=== PATIENT | female | born 1950 | race Caucasian/White ===

== ENCOUNTER → 2019-04-29 | Outpatient (CLI) | payer MEDICARE, OTHER, SELFPAY | PROVIDERS: Family Provider Family Medicine; PCP Family Medicine; Referring Provider Internal Medicine Rheumatology; Visit Provider Internal Medicine Rheumatology | DX: Z79.899 Other long term (current) drug therapy (principal) | CPT/HCPCS: 36415; 80053; 85025 ==

== ENCOUNTER → 2019-08-06 09:49 | Outpatient (BNVA) | payer MEDICARE, OTHER, SELFPAY | PROVIDERS: Family Provider Family Medicine; PCP Family Medicine; Visit Provider Internal Medicine Rheumatology | DX: D89.89 Other specified disorders involving the immune mechanism, not elsewhere classified (principal); M11.89 Other specified crystal arthropathies, multiple sites; Z79.899 Other long term (current) drug therapy | CPT/HCPCS: 36415; 80076; 82565; 85025; 85651; 86140 ==

== ENCOUNTER → 2019-08-06 10:12 | Outpatient (BNVA) | payer MEDICARE, OTHER, SELFPAY | PROVIDERS: Family Provider Family Medicine; PCP Family Medicine; Visit Provider Internal Medicine Rheumatology | DX: D89.89 Other specified disorders involving the immune mechanism, not elsewhere classified (principal); M11.89 Other specified crystal arthropathies, multiple sites | CPT/HCPCS: 85025 ==

== ENCOUNTER → 2019-09-09 10:29 | Outpatient (BNVA) | payer MEDICARE, OTHER, SELFPAY | PROVIDERS: Family Provider Family Medicine; PCP Family Medicine; Visit Provider Internal Medicine Rheumatology | DX: Z79.899 Other long term (current) drug therapy (principal) | CPT/HCPCS: 36415; 81001; 82570; 84156; 86160; 86235; 86480 ==

== ENCOUNTER 2019-09-11 12:38 | Outpatient (CLI) | payer MEDICARE, OTHER, SELFPAY ==
--- NOTE | 2019-09-11 12:55 | XR_ITS ---
WS: [id number] DEXA (DUAL ENERGY X-RAY ABSORPTIOMETRY) Bone mineral density was performed using a Xtellus machine. HISTORY: POSTMENOPAUSAL, ASYMPTOMATIC MENOPAUSAL STATE COMPARISON: None available. Lumbar spine BMD (L1-L4): 1.171 g/cm2 T score: -0.1 Z score: 0.4 Total hip BMD: Left: 0.834 g/cm2. T score: -1.4 Z score: -0.9 Right: 0.862 g/cm2. T score: -1.2 Z score: -0.7 10 year probability of a major osteoporotic fracture is 5%. Mild LEFT convex curvature lumbar spine. XR/XR DEXA axial skeleton* [id number] IMPRESSION: OSTEOPENIA based upon the WHO classification for females.
== END 2019-09-11 12:39 | disposition home or self-care (01) ==
LOC: RADWPI 12:46
PROVIDERS: Family Provider Family Medicine; PCP Family Medicine; Visit Provider Nurse Practitioner Family
DX: Z78.0 Asymptomatic menopausal state (principal); M85.89 Other specified disorders of bone density and structure, multiple sites
CPT/HCPCS: 77080

== ENCOUNTER → 2019-09-19 11:35 | Outpatient (BNVA) | payer MEDICARE, OTHER, SELFPAY | PROVIDERS: Family Provider Family Medicine; PCP Family Medicine; Visit Provider Nurse Practitioner Family | DX: N39.0 Urinary tract infection, site not specified (principal); N39.41 Urge incontinence | CPT/HCPCS: 81001 ==

== ENCOUNTER → 2019-11-07 10:13 | Outpatient (BNVA) | payer MEDICARE, OTHER, SELFPAY | PROVIDERS: Family Provider Family Medicine; PCP Family Medicine; Visit Provider Urology | DX: N39.0 Urinary tract infection, site not specified (principal); N39.46 Mixed incontinence | CPT/HCPCS: 81001 ==

== ENCOUNTER → 2019-11-12 12:16 | Outpatient (BNVA) | payer MEDICARE, OTHER, SELFPAY | PROVIDERS: Family Provider Family Medicine; PCP Family Medicine; Visit Provider Urology | DX: N39.0 Urinary tract infection, site not specified (principal) | CPT/HCPCS: 80053; 81001 ==

== ENCOUNTER → 2019-11-26 09:55 | Outpatient (BNVA) | payer MEDICARE, OTHER, SELFPAY | PROVIDERS: Family Provider Family Medicine; PCP Family Medicine; Visit Provider Internal Medicine Rheumatology | DX: Z79.899 Other long term (current) drug therapy (principal) | CPT/HCPCS: 36415; 80076; 82565; 85025; 85651; 86140 ==

== ENCOUNTER → 2020-01-08 09:47 | Outpatient (BNVA) | payer MEDICARE, OTHER, SELFPAY | PROVIDERS: Family Provider Family Medicine; PCP Family Medicine; Visit Provider Nurse Practitioner Family | DX: N39.46 Mixed incontinence (principal); N39.0 Urinary tract infection, site not specified | CPT/HCPCS: 81001 ==

== ENCOUNTER → 2020-01-21 11:08 | Outpatient (BNVA) | payer MEDICARE, OTHER, SELFPAY | PROVIDERS: Family Provider Family Medicine; PCP Family Medicine; Visit Provider Internal Medicine Rheumatology | DX: M06.042 Rheumatoid arthritis without rheumatoid factor, left hand (principal); Z79.899 Other long term (current) drug therapy; M06.041 Rheumatoid arthritis without rheumatoid factor, right hand; M19.90 Unspecified osteoarthritis, unspecified site; Z91.81 History of falling; Z87.39 Personal history of other diseases of the musculoskeletal system and connective tissue | CPT/HCPCS: 20600; 99214; J1030 ==

== ENCOUNTER → 2020-02-06 09:07 | Outpatient (BNVA) | payer MEDICARE, OTHER, SELFPAY | PROVIDERS: Family Provider Family Medicine; PCP Family Medicine; Visit Provider Nurse Practitioner Family | DX: N39.46 Mixed incontinence (principal) | CPT/HCPCS: 81001 ==

== ENCOUNTER → 2020-02-27 11:13 | Outpatient (BNVA) | payer MEDICARE, OTHER, SELFPAY | PROVIDERS: Family Provider Family Medicine; PCP Family Medicine; Visit Provider Internal Medicine Rheumatology | DX: Z79.899 Other long term (current) drug therapy (principal) | CPT/HCPCS: 36415; 80076; 82565; 85025; 85651; 86140 ==

== ENCOUNTER 2020-03-12 11:37 | Outpatient (CLI) | payer MEDICARE, OTHER, SELFPAY ==
--- NOTE | 2020-03-12 11:30 | XR_ITS ---
WS: [id number] XR KUB [id number] REASON FOR EXAM: FLANK PAIN FINDINGS: The focused view of the renal area is degraded by motion artifact. Large amount of stool in the colon. Bowel gas pattern otherwise unremarkable. No free air. No calculi are identified overlying either kidney or the course of the ureters. No significant calcif ication is seen within the pelvis. XR/XR KUB [id number] IMPRESSION: Examination limited as above. No urinary tract calculi identified.
== END 2020-03-12 11:38 | disposition home or self-care (01) ==
LOC: RAD 11:41
PROVIDERS: PCP Family Medicine; Visit Provider Nurse Practitioner Family
DX: R10.9 Unspecified abdominal pain (principal)
CPT/HCPCS: 74018; 81003

== ENCOUNTER → 2020-04-15 15:13 | Outpatient (BNVA) | payer MEDICARE, OTHER, SELFPAY | PROVIDERS: PCP Family Medicine; Visit Provider Internal Medicine Rheumatology | DX: M06.041 Rheumatoid arthritis without rheumatoid factor, right hand (principal); M06.042 Rheumatoid arthritis without rheumatoid factor, left hand; M15.9 Polyosteoarthritis, unspecified; G20 Parkinson's disease; R29.6 Repeated falls; Z79.899 Other long term (current) drug therapy | CPT/HCPCS: 99214 ==

== ENCOUNTER 2020-05-19 10:06 | Outpatient (CLI) | payer MEDICARE, OTHER, SELFPAY ==
--- NOTE | 2020-05-19 10:16 | CT_ITS ---
WS: [id number] CT ABDOMEN AND PELVIS WITH CONTRAST HISTORY: ABDOMINAL PAIN, DIARRHEA, ACID REFLUX DISEASE, Parkinson's disease. TECHNIQUE: Imaging performed of the abdomen and pelvis with IV contrast. Single phase imaging of the abdomen. Coronal and sagittal reformats are submitted. All CT scans at [facility] use at least one of these dose optimization techniques: automated exposure control; mA and/or kV adjustment per patient size (includes targeted exams where dose is matched to clinical indication); or iterativ e reconstruction. IV CONTRAST: Visipaque 320; 95 mL IV. Oral contrast: Yes. DLP: 1103.77 mGycm COMPARISON: 11/20/2017 Lower thorax: Stable 4 mm nodule at the LEFT lung base. Heart is normal size. Moderate size hiatal he rnia containing contrast. Liver/biliary system: Moderate diffuse hepatic steatosis. No bile duct dilatation. Gallbladder: Status post cholecystectomy. Pancreas: Atrophy and partial fatty replacement of the pancreas. Spleen: Normal. Adrenal glands: Normal. Right kidney: Normal. Left kidney: Normal. Aorta: Normal. Lymphadenopathy: None. Free fluid: None. GI tract: No GI tract obstruction. There is moderate diffuse fecal retention throughout the colon. Th ere is an area of soft tissue thickening near the rectum of uncertain etiology. No oral contrast is p resent. This could be soft tissue mass or collapsed rectum. The appendix is not identified. Prior carmella endectomy. Abdominal wall: Fat-containing umbilical hernia. Pelvis: Normally distended urinary bladder. No adenopathy or free fluid. Prior hysterectomy. Bones: Increased lumbar lordosis. L4 anterolisthesis by 5 mm. Facet joint arthritis bilaterally. CT/CT abdomen pelvis w con* [id number] IMPRESSION: 1. Hepatic steatosis and prior cholecystectomy. 2. Moderate size hiatal hernia containing oral contrast. Probably due to reflu x disease. 3. Soft tissue thickening at the rectum of uncertain etiology. May be collapse d normal rectum but neoplasm is not excluded. Consider colonoscopy if this has not been performed. 4. Diffuse constipation. No obstruction.
[2020-05-19] MEDS: iohexol 300 mg/mL 50 mL Btl PO (10:56)
[2020-05-19] MEDS: iodixanol 320 mg/mL 100mL Btl IV (12:09)
== END 2020-05-19 10:07 | disposition home or self-care (01) ==
LOC: RADWPI 10:09
PROVIDERS: PCP Electrodiagnostic Medicine; Visit Provider Electrodiagnostic Medicine
DX: R10.9 Unspecified abdominal pain (principal); K21.9 Gastro-esophageal reflux disease without esophagitis; G20 Parkinson's disease; M06.9 Rheumatoid arthritis, unspecified; R19.7 Diarrhea, unspecified; F32.9 Major depressive disorder, single episode, unspecified; F41.9 Anxiety disorder, unspecified; K76.0 Fatty (change of) liver, not elsewhere classified; K44.9 Diaphragmatic hernia without obstruction or gangrene; K59.00 Constipation, unspecified
CPT/HCPCS: 74177; Q9967

== ENCOUNTER → 2020-12-03 08:56 | Outpatient (BNVA) | payer MEDICARE, OTHER, SELFPAY | PROVIDERS: PCP Electrodiagnostic Medicine; Visit Provider Internal Medicine Rheumatology | DX: M15.9 Polyosteoarthritis, unspecified (principal); Z71.89 Other specified counseling; Z79.899 Other long term (current) drug therapy | CPT/HCPCS: 36415; 80076; 82565; 85025; 86140 ==

== ENCOUNTER 2020-12-14 11:30 | Outpatient (CLI) | payer MEDICARE, OTHER, SELFPAY ==
--- NOTE | 2020-12-14 11:41 | MM_ITS ---
WS: [id number] BILATERAL DIGITAL SCREENING MAMMOGRAPHY WITH CAD CLINICAL INFORMATION: SCREENING HISTORY: Screening mammogram. No current complaints. COMPARISON: March 08, 2018 TECHNIQUE: Bilateral CC and MLO views. FINDINGS: Scattered fibroglandular densities bilaterally. A few incidental punctate calcifications. No suspicio us focal mass, asymmetry, calcifications, or architectural distortion. No evidence of malignancy. MM/[place] [id number] IMPRESSION: BI-RADS: 2-Benign FOLLOW UP: 1 Year Follow-up Recommend return to annual screening mammography.
== END 2020-12-14 11:31 | disposition home or self-care (01) ==
LOC: RADSHAW 11:37
PROVIDERS: PCP Electrodiagnostic Medicine; Visit Provider Electrodiagnostic Medicine
DX: Z12.31 Encounter for screening mammogram for malignant neoplasm of breast (principal)
CPT/HCPCS: 77067

== ENCOUNTER → 2020-12-21 15:28 | Outpatient (BNVA) | payer MEDICARE, OTHER, SELFPAY | PROVIDERS: PCP Electrodiagnostic Medicine; Visit Provider Internal Medicine Rheumatology | DX: M06.041 Rheumatoid arthritis without rheumatoid factor, right hand (principal); M06.042 Rheumatoid arthritis without rheumatoid factor, left hand; M15.9 Polyosteoarthritis, unspecified; Z71.89 Other specified counseling; Z79.899 Other long term (current) drug therapy; G20 Parkinson's disease | CPT/HCPCS: 99214 ==

== ENCOUNTER → 2021-03-29 14:31 | Outpatient (BNVA) | payer MEDICARE, OTHER, SELFPAY | PROVIDERS: PCP Electrodiagnostic Medicine; Visit Provider Internal Medicine Rheumatology | DX: Z71.89 Other specified counseling (principal); M06.041 Rheumatoid arthritis without rheumatoid factor, right hand; M06.042 Rheumatoid arthritis without rheumatoid factor, left hand; M19.90 Unspecified osteoarthritis, unspecified site; Z79.899 Other long term (current) drug therapy | CPT/HCPCS: 36415; 80076; 82565; 85025; 86140 ==

== ENCOUNTER 2021-05-31 13:29 | Outpatient (CLI) | payer SELFPAY ==
[2021-05-31 08:56] VITALS: BMI 45.3
[2021-05-31 15:06] VITALS: BP 130/72; PULSE 95; RESP 18; TEMP 36.6; O2SAT 93
== END 2021-05-31 13:30 | disposition home or self-care (01) ==
LOC: OPS 13:32
PROVIDERS: PCP Electrodiagnostic Medicine; Visit Provider Physician Assistant
DX: U07.1 COVID-19 (principal)
CPT/HCPCS: 96365

== ENCOUNTER → 2021-09-28 14:51 | Outpatient (BNVA) | payer MEDICARE, OTHER, SELFPAY | PROVIDERS: PCP Electrodiagnostic Medicine; Visit Provider Internal Medicine Rheumatology | DX: M06.041 Rheumatoid arthritis without rheumatoid factor, right hand (principal); M06.042 Rheumatoid arthritis without rheumatoid factor, left hand; M15.9 Polyosteoarthritis, unspecified; Z79.899 Other long term (current) drug therapy; G20 Parkinson's disease; R29.6 Repeated falls; Z71.89 Other specified counseling | CPT/HCPCS: 73130; 73630; 80076; 82565; 85025; 86140; 99214 ==

== ENCOUNTER 2021-12-30 08:48 | Outpatient (CLI) | payer MEDICARE, OTHER, SELFPAY ==
--- NOTE | 2021-12-30 08:56 | MM_ITS ---
WS: [id number] Bilateral screening 3D tomosynthesis digital mammogram, 12/30/2021 Clinical Data: SCREENING Comparison: 12/13/2020, 03/08/2018, 02/24/2015, 02/05/2014, 04/16/2012, 04/13/2011, 02/22/2010, 02/12/2029, 10/16/2007. Findings: The breast parenchymal pattern shows lateral glandular tissue. No spiculated masses or clustered calc ifications are seen. There are no secondary signs of carcinoma. MM/[place] [id number] Impression: 1. Negative bilateral mammogram unchanged. 2. Recommend annual screening mammograms. BIRADS: 1-Negative FOLLOW UP: 1 Year Follow-up The CAD program checker was used.
== END 2021-12-30 08:49 | disposition home or self-care (01) ==
PROVIDERS: PCP Electrodiagnostic Medicine; Visit Provider Electrodiagnostic Medicine
DX: Z12.31 Encounter for screening mammogram for malignant neoplasm of breast (principal)
CPT/HCPCS: 77063; 77067

== ENCOUNTER 2022-03-07 13:08 | Outpatient (CLI) | payer MEDICARE, OTHER, SELFPAY ==
--- NOTE | 2022-03-07 | USCV_ITS ---
Rakel Anderson Age: 71 Gender: F : 1950 Exam Date: 03/07/2022 13:43 Ordering Phys: Selvin Dumont MD Technologist: CT Exam Location[place] [facility] [place] Indication: PAIN, RT PROCEDURES: Venous duplex imaging was performed in only the right lower extremity. In addition, the posterior tibial and peroneal trunk were evaluated. Serial compression, augmentation maneuvers, and spectral Doppler flow evaluation were performed. FINDINGS: NORMAL US CONCLUSIONS No evidence of right lower extremity DVT. Charles Fonseca MD (Electronically Signed) Final Date: 07 March 2022 14:36 S
== END 2022-03-07 13:09 | disposition home or self-care (01) ==
PROVIDERS: PCP Electrodiagnostic Medicine; Visit Provider Surgery
DX: G89.18 Other acute postprocedural pain (principal); M79.604 Pain in right leg
CPT/HCPCS: 93971

== ENCOUNTER → 2022-06-15 12:12 | Outpatient (BNVA) | payer MEDICARE, OTHER, SELFPAY | PROVIDERS: PCP Electrodiagnostic Medicine; Visit Provider Internal Medicine Rheumatology | DX: M06.041 Rheumatoid arthritis without rheumatoid factor, right hand (principal); M06.042 Rheumatoid arthritis without rheumatoid factor, left hand; M16.0 Bilateral primary osteoarthritis of hip; Z79.899 Other long term (current) drug therapy; M06.4 Inflammatory polyarthropathy; M17.12 Unilateral primary osteoarthritis, left knee; R29.6 Repeated falls; G20 Parkinson's disease; G57.02 Lesion of sciatic nerve, left lower limb; Z79.52 Long term (current) use of systemic steroids; Z96.652 Presence of left artificial knee joint; Z98.1 Arthrodesis status | CPT/HCPCS: 36415; 72170; 80076; 82565; 85025; 85651; 86140; 99214 ==

== ENCOUNTER → 2022-09-14 12:36 | Outpatient (BNVA) | payer MEDICARE, OTHER, SELFPAY | PROVIDERS: PCP Electrodiagnostic Medicine; Visit Provider Internal Medicine Rheumatology | DX: M06.041 Rheumatoid arthritis without rheumatoid factor, right hand (principal); M06.042 Rheumatoid arthritis without rheumatoid factor, left hand; Z79.899 Other long term (current) drug therapy; Z71.89 Other specified counseling; M15.9 Polyosteoarthritis, unspecified | CPT/HCPCS: 99214 ==

== ENCOUNTER 2022-09-28 07:52 | Outpatient (CLI) | payer MEDICARE, OTHER, SELFPAY ==
[2022-09-28 08:47] VITALS: BMI 43.9
--- NOTE | 2022-09-28 08:53 | ECG_ITS ---
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 Interpretive Statements NAME OF STUDY: LEXISCAN SESTAMIBI STRESS TEST INDICATION: Chest Pain PROCEDURE: At the baseline, the EKG revealed normal sinus rhythm with a poor R wave progression.. The baseline heart was 98 bpm with a blood pressue of 181/89 mm of Hg Lexiscan was infused over a period of 20 seconds. A total of 0.4 milligrams of Lexiscan was infused. The stress phase was continued for a total of 5 minutes. Heart rate at the end of the stress phase was 99 bpm with a blood pressure 161/80 mm of Hg. The EKG at the peak infusion revealed no significant changes. Sestamibi was injected 20 seconds after the Lexiscan infusion. Heart rate at the end of the recovery phase was 99 bpm with a blood pressure of 158/78 mm of Hg. CONCLUSION: 1. No significant EKG changes with the LexiScan infusion 2. No LexiScan induced chest pain or cardiac arrhythmia 3. Normal blood pressure and heart rate response 4. Sestamibi/sestamibi perfusion scan pending; see separate report. Electronically Signed On 09-29-2022 8:03:25 CDT by Amish Garza M.D. [id number]
--- NOTE | 2022-09-28 08:53 | NMCV_ITS ---
NM amy perf SPECT r/s* [id number] Rakel Anderson Age: 72 Gender: F : 1950 Exam Date: 09/28/2022 08:53 Ordering Phys: Thanh Washington (ER USE) DO Technologist: TRI Riley Exam Location: [facility] Indications: CHEST PAIN STRESS TEST Please see separate stress test report in [facility] for full findings IMAGE PROTOCOL Rest/Stress 1 Lexiscan Day Radiopharmaceutical Dose (mCi) Administration Site Administered by Rest: Tc-99m 10.7 IV TRI Aviles Sestamibi Stress:Tc-99m 32.9 IV TRI Aviles Sestamibi Rest: 28-Sep-2022 60 Discovery 630 Stress: 28-Sep-2022 30 Discovery 630 0.4mg Lexiscan. Supine position only as patient was unable to lay prone. SPECT RESULTS Technical Quality: Excellent Raw Data Analysis: Normal Image Corrections: No attenuation or motion correction applied Summed Stress Score: 4 Summed Rest Score: 8 Summed Difference Score: 0 PERFUSION FINDINGS Moderate area of minimal to moderate decreases uptake in the mid inferolateral, mid anterolateral and apical lateral regions. No reversibility was noted in these regions. FUNCTIONAL RESULTS (calculated via Gated SPECT) Stress Image LV EF (%): 77 Stress EDV (mL):81 TID: 0.77 Stress ESV (mL):19 FUNCTIONAL FINDINGS: Segmental wall motion analysis revealing no gross wall motion abnormalities IMPRESSIONS 1. Myocardial perfusion imaging revealing moderate area of minimal to moderately decreased persistent tracer uptake in the anterolateral, inferolateral and apical lateral regions, suggesting myocardial scarring versus attrition artifact 2. Normal LV ejection fraction 77%. 3. LV wall motion analysis revealing no gross wall motion abnormalities. 4. Normal LV volume Low probability for coronary ischemia, based on the above findings No similar previous studies are available for comparison Dr Amish Garza MD [facility] (Electronically Signed) Final Date: 28 Sep 2022 12:41 S
[2022-09-28] MEDS: regadenoson 0.4 Mg/5 ml Syringe IVP (10:19)
[2022-09-28 10:23] VITALS: BP 153/88; PULSE 99
== END 2022-09-28 07:53 | disposition home or self-care (01) ==
LOC: CDL 07:55
PROVIDERS: PCP Electrodiagnostic Medicine; Visit Provider Electrodiagnostic Medicine
DX: R07.9 Chest pain, unspecified (principal)
CPT/HCPCS: 36415; 78452; 93017; 96374; A9500; J2785

== ENCOUNTER → 2023-11-13 10:20 | Outpatient (BNVA) | payer MEDICARE, OTHER, SELFPAY | PROVIDERS: PCP Electrodiagnostic Medicine; Visit Provider Internal Medicine Rheumatology | DX: M06.041 Rheumatoid arthritis without rheumatoid factor, right hand (principal); M06.042 Rheumatoid arthritis without rheumatoid factor, left hand; Z79.899 Other long term (current) drug therapy; M17.12 Unilateral primary osteoarthritis, left knee; Z96.612 Presence of left artificial shoulder joint | CPT/HCPCS: 36415; 80076; 82565; 85025; 85651; 86140; 99214 ==

== ENCOUNTER 2024-06-26 18:46 | Emergency (ER) | payer MEDICARE, OTHER, SELFPAY ==
[2024-06-26 18:47] VITALS: BP 152/81; PULSE 91; RESP 18; TEMP 36.8; O2SAT 95; BMI 41.5
[2024-06-26] MEDS: ondansetron 2 mg/ML SDV 2 mL 4 MG IM (19:02)
[2024-06-26] MEDS: ketorolac 60 mg/2 mL INJ IM (19:02)
--- NOTE | 2024-06-26 19:12 | W.ED.FALL ---
HPI - Fall General: Chief Complaint: Fall Stated Complaint: Fall Time Seen by Provider: 06/26/24 18:51 History of Present Illness: Patient brought in by EMS for evaluation for a fall around 1600. Resulted in patient hitting her back and right lumbar area. Patient did not hit her head or lose consciousness. Patient has not been able to tolerate her pain. Before the fall patient does not have back pain. Patient does have Parkinson's and does have tremor and shuffling gait. Related Data Home Medications ?Medication ?Instructions ?Recorded ?Confirmed clonazepam 0.5 mg tablet 0.5 mg PO DAILY 08/13/19 11/13/23 hydrocodone 5 mg-acetaminophen 325 1 tab PO BID PRN 08/13/19 11/13/23 mg tablet omeprazole 40 mg capsule,delayed 40 mg PO DAILY 08/13/19 11/13/23 release rasagiline 1 mg tablet (Azilect) 1 mg PO DAILY 08/13/19 11/13/23 conjugated estrogens 0.625 mg/gram 0.625 mg vaginal DAILY PRN 08/14/19 11/13/23 vaginal cream (Premarin) ropinirole 3 mg tablet (Requip) 3 mg PO BID 08/14/19 11/13/23 amantadine HCl 100 mg capsule 100 mg PO BID 09/28/21 11/13/23 fluoxetine 40 mg capsule 40 mg PO DAILY 09/28/21 11/13/23 venlafaxine 50 mg tablet 50 mg PO DAILY 09/28/21 11/13/23 carbidopa ER 50 mg-levodopa 200 mg 1 tab PO .HS 06/15/22 11/13/23 tablet,extended release gabapentin 600 mg tablet 600 mg PO TID 06/15/22 11/13/23 lactobacillus combination no.9 4 4,000 mmu cells PO DAILY 06/15/22 11/13/23 billion cell capsule (Adult 50 Plus Probiotic) carbidopa 25 mg-levodopa 100 mg 2 tab PO QID 11/13/23 11/13/23 tablet (Sinemet) Previous Rx's ?Medication ?Instructions ?Recorded solifenacin 10 mg tablet (Vesicare) 10 mg PO DAILY #30 tabs 03/30/20 diclofenac sodium 1 % topical gel 4 g topical QID #100 grams 09/14/22 hydroxychloroquine 200 mg tablet See Rx Instructions .Route 11/13/23 .COMPLEX #180 tabs leflunomide 20 mg tablet 20 mg PO DAILY #90 tabs 11/13/23 prednisone 5 mg tablet See Rx Instructions PO .COMPLEX 11/13/23 #90 tabs prednisone 10 mg tablet See Rx Instructions PO .COMPLEX 01/10/24 PRN joint pain #30 tabs Allergies Allergy/AdvReac Type Severity Reaction Status Date / Time methotrexate AdvReac Severe diarrhea Verified 11/13/23 10:50 Sulfa (Sulfonamide AdvReac Mild nausea Verified 11/13/23 10:50 Antibiotics) Review of Systems General: Reports: 10 or more systems reviewed and unremarkable except in HPI and below PFSH ED PFSH: Medical History Piriformis syndrome of left side Osteoarthritis, generalized Seronegative rheumatoid arthritis of both hands Mixed stress and urge urinary incontinence History of calcium pyrophosphate deposition disease (CPPD) Inflammatory arthritis High risk medication use Immunization counseling Osteoarthritis Recurrent UTI Surgical History History of History of hysterectomy H/O arthroscopy of left knee History of esophageal surgery History of cholecystectomy History of tubal ligation Hx of repair of left rotator cuff History of left knee replacement Family History Father , at age 69 Cancer pancreatic cancer Emphysema lung Mother , at age 57 Enlarged heart Other Diabetes Family history of premature coronary artery disease Heart disease Hypertension Systemic lupus erythematosus (SLE) in adult Denies family history of Chronic kidney disease (CKD) Social History Smoking and tobacco/nicotine status: never used tobacco/nicotine Alcohol intake: never Substance/Drug Use: unknown Adopted: No Caregiver/support person: No Lives independently: No Household members: spouse Marital status: Current occupational status: retired Current gender identity: Female Physical Exam Const: COMMON NORMALS: no acute distress, average body habitus, patient oriented x3, no limitations, healthy appearing, alert and well nourished HENMT: COMMON NORMALS: normocephalic, atraumatic, hearing grossly normal bilaterally, external ears normal, Normal external nose present, moist oral mucous membranes and oropharynx normal HEAD & SCALP: normocephalic and atraumatic NOSE: Normal external nose present EXTERNAL EAR: Yes external ears normal Eye: COMMON NORMALS: Equal, round and reactive pupils present, EOMs intact bilaterally, conjunctivae normal and no scleral icterus CONJUNCTIVA: Yes conjunctivae normal PUPIL: Yes Equal, round and reactive pupils present Neck/C-Spine: COMMON NORMALS: full ROM, no lymphadenopathy, supple, no meningeal signs and no JVD Chest: COMMONS NORMALS: normal inspection of the chest and normal palpation of entire chest wall Resp: COMMON NORMALS: normal respiratory effort, No retractions, No use of accessory muscles and clear to auscultation bilaterally AUSCULTATION: clear to auscultation bilaterally Cardio: COMMON NORMALS: no JVD, regular rate, regular rhythm, S1 normal heart sound present, S2 normal heart sound present, No gallops present (Cardio), No clicks present (Cardio), No murmurs present (Cardio) and No rub (Cardio) RATE: regular rate RHYTHM: regular rhythm HEART SOUNDS: S1 normal heart sound present and S2 normal heart sound present GI: COMMON NORMALS: Normal to inspection, nondistended, normoactive bowel sounds present, Soft to palpation, non-tender and No hepatosplenomegaly present PALPATION: Yes Soft to palpation and Yes No hepatosplenomegaly present Back/Pelvis: OTHER: Tenderness to palpation over lumbar spine and right lumbar paraspinal region, no obvious step-off deformity crepitus. Neuro: COMMON NORMALS: patient oriented x3 SENSORIUM/ORIENTATION: Yes alert MENINGEAL SIGNS: Yes no meningeal signs Course Vital Signs: Vital signs: Vital Signs Temperature 98.3 F 06/26/24 18:47 Pulse Rate 96 06/26/24 20:04 Respiratory Rate 18 06/26/24 18:47 Blood Pressure 96/68 06/26/24 20:04 Pulse Oximetry 95 06/26/24 20:04 Oxygen Delivery Me thod Room Air 06/26/24 20:04 MDM - Fall Medical Decision Making X-rays were negative for acute lumbar pathology, patient was given 60 mg Toradol, 4 mg of Zofran followed by 5 mg of hydrocodone. Patient said the pain is almost gone. Patient be discharged home. Medical Records I reviewed the patient's medical records. Lab Data I reviewed the patient's lab results. Radiology Impressions Lumbar Spine X-Ray 06/26/24 19:18 IMPRESSION: Negative for acute lumbar spine pathology. All radiology interpretation(s) finalized by discharge Discharge Plan Discharge Patient Disposition: Home Clinical Impression: Fall, Low back pain Condition: Stable Prescriptions: No Action rasagiline [Azilect] 1 mg tablet 1 mg PO DAILY omeprazole 40 mg capsule,delayed release(DR/EC) 40 mg PO DAILY hydrocodone-acetaminophen 5-325 mg tablet 1 tab PO BID PRN clonazepam 0.5 mg tablet 0.5 mg PO DAILY Premarin 0.625 mg/gram cream 0.625 mg VAGINAL DAILY PRN ropinirole [Requip] 3 mg tablet 3 mg PO BID carbidopa-levodopa [Sinemet] 25-100 mg tablet 2 tab PO QID Patient Comments: dose change per pt fluoxetine 40 mg capsule 40 mg PO DAILY amantadine HCl 100 mg capsule 100 mg PO BID venlafaxine 50 mg tablet 50 mg PO DAILY gabapentin 600 mg tablet 600 mg PO TID carbidopa-levodopa 50-200 mg tablet extended release 1 tab PO .HS Adult 50 Plus Probiotic 4 billion cell capsule 4,000 mmu cells PO DAILY Rx Instructions: administer with a meal diclofenac sodium 1 % gel 4 g topical QID Qty: 100 2RF Rx Instructions: apply to affected area as needed hydroxychloroquine 200 mg tablet See Rx Instructions .ROUTE .COMPLEX Qty: 180 1RF Dose Instruction: Take 1 tablet by mouth twice daily Rx Instructions: Take 1 tablet by mouth twice daily leflunomide 20 mg tablet 20 mg PO DAILY Qty: 90 1RF prednisone 5 mg tablet See Rx Instructions PO .COMPLEX Qty: 90 1RF Rx Instructions: 5mg daily orally; solifenacin [Vesicare] 10 mg tablet 10 mg PO DAILY Qty: 30 3RF prednisone 10 mg tablet See Rx Instructions PO .COMPLEX PRN (Reason: joint pain) Qty: 30 1RF Rx Instructions: take 1 tab daily for 5 days prn joint pain flare PO PRN; Discharge Orders: Discharge ED (Routine); Ordered 06/26/24 Ordered By: Froylan Dutta Referrals: Thanh Washington DO [Primary Care Provider] - 1 week Patient Instructions: Acute Low Back Pain (ED), Fall Prevention (ED) Activity Restrictions/Additional Instructions: The x-ray performed in the ER did not show any acute fracture of your low back. Please continue take the hydrocodone you have at home as previously directed. Please follow-up with your failure proximal physician within the next 7 days for further evaluation treatment as needed. Activity restrictions/additional instructions: [facility]. Please realize that you were seen in the emergency department and that we are providing you with an emergency medical screening exam and this may not be a complete and all exclusive of all testing and/or medical workup we may need to determine your element or severity of your illness. It is very important that you follow-up as instructed with your primary care provider or specialist for the additional evaluation and to discuss your medical treatment plan. You may return to the emergency department should you have concerns or if your condition changes or worsens in any way. 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
--- NOTE | 2024-06-26 19:18 | XRR_ITS ---
PROCEDURE INFORMATION: Exam: XR Lumbosacral Spine Exam date and time: 06/26/2024 7:51 PM Age: 74 years old Clinical indication: Injury or trauma; Fall; Other: Pain lower back; Prior surgery; Surgery date: 6+ months; Surgery type: Lumbar fusiion; Additional info: Fall lbp TECHNIQUE: Imaging protocol: Radiologic exam of the lumbosacral spine. Views: 2 or 3 views. COMPARISON: CR XR pelvis 1-2V* [id number] 06/15/2022 12:17 PM FINDINGS: Bones/joints: Multilevel posterior fusion of the lumbosacral spine without evidence of complication. No acute lumbar spine fractures are identified. Negative for traumatic malalignment. There is most likely degenerative grade 1 spondylolisthesis in the mid lumbar spine. Laminectomy surgical changes.The lumbar spine demonstrates marked discogenic and apophyseal joint degenerative changes at multiple levels. Soft tissues: Unremarkable. Intraperitoneal space: Right upper quadrant surgical clips are present. XR/XR lumbar spine 2-3V* [id number] IMPRESSION: Negative for acute lumbar spine pathology.
[2024-06-26 20:04] VITALS: BP 96/68; PULSE 96; O2SAT 95
[2024-06-26] MEDS: HYDROcodone-acetaminophen 5-325 mg Tablet 1 TAB PO (20:20)
--- NOTE | 2024-06-26 21:35 | PC.NURSE ---
pt is resting in bed. pt requested a sprite and ER doc approved.
== END 2024-06-26 22:31 | disposition home or self-care (01) ==
PROVIDERS: Emergency Provider Emergency Medicine; PCP Electrodiagnostic Medicine
DX: M54.50 Low back pain, unspecified (principal); W19.XXXA Unspecified fall, initial encounter
CPT/HCPCS: 72100; 96372; 99284; J1885; J2405

== ENCOUNTER 2025-02-16 23:14 | Inpatient (IN) | payer MEDICARE, OTHER, SELFPAY ==
--- OUTSIDE RECORDS SUMMARY | 2025-01-16 03:00 | XMS_ITS ---
Author Organization [facility] Address [address] [place] [address] Care Team Providers Care Medical Pathology Teacher Name Role Phone Thanh Washington DO Primary Care Provider Unavail Osman Doshi Unavailable [phone] REASON FOR VISIT RIGHT TOTAL KNEE ARTHROPLASTY - CORI Encounters Encounter Location Date Provider Diagnosis Count Includes [facility] [address] [place] [id number] 01/16/2025 Osman Ferguson Plan Of Treatment Next Appt Details Provider Name:Osman Ferguson , 03/14/2025 09:20:00 AM, [address] [place], [phone], Progress Notes * Rakel ANDERSON LDOB:12/1950 (74 yo F)Acc No.[id number]:01/16/2025 Patient: Ernestine Serramyra Morales Provider: Mason Ferguson MD :1950 A ge:74 Y S ex:Female Date:01/16/2025 Address:[address] [place] [id number] Pcp:Thanh Washington DO Billing Information: * Procedure Codes: * Electronic signature of Zia Ferguson MD on 02/16/2025 at 11:25 PM CDT Sign off status: Pending * Provider: Mason Ferguson MD Date: 0 01/16/2025 Generated for Karli lino/Sherrell/Ramon on: 1 11:25 PM CDT
--- OUTSIDE RECORDS SUMMARY | 2025-02-14 04:40 | XMS_ITS ---
Author Organization [facility] Address [address] [place] [id number] Care Team Providers Care Digital Analyst Name Role Phone [place] Thanh CHAN Primary Care Provider Unavail able Osman Ferguson Unavailable [phone] REASON FOR VISIT RT KNEE Medications Medication SIG (Take, Route, Frequency, Duration) Notes Start Date End Date Status HYDROcodone-Acetaminophe n 0.5 Tablet Every 12 hours PRN *Pick strength-form from [facility]* Not-Taking Gabapentin 600 MG Tablet 1 capsule Orally three times a day; Duration: 30 day(s) 06/01/2022 Not-Taking Hydroxychloroquine 1 PRN *Reorder from [facility] and Interaction Alerts* Not-Taking venlafaxine 1 Tablet Twice a Day *Reorder from [facility] Interaction Alerts* Not-Taking Omeprazole 40 MG Capsule Delayed Release 1 capsule 30 minutes before morning meal Orally Once a day Not-Taking Gabapentin 300 MG Capsule 1 capsule Orally three times a day; Duration: 30 days 04/13/2022 Not-Taking Gabapentin 100 MG Capsule 1 capsule Orally three times a day; Duration: 30 day(s) 03/19/2022 Not-Taking clonazePAM 1 PRN *Pick strength-form from [facility]* Not-Taking Gabapentin 100 MG Capsule 1 capsule Orally TID; Duration: 30 day(s) 04/12/2021 Not-Taking Fluoxetine 1 PRN *Reorder from [facility] and Interaction Alerts* Not-Taking ropinirole 1 Every Night *Reorder from [facility] and Interaction Alerts* Active Vitamin D3 50 MCG (1999) Capsule 1 capsule Orally Once a day Active Venlafaxine HCl 50 MG Tablet 1 tablet with food Orally Once a day Active Valium 10 MG Tablet 1 tablet as needed Orally Once a day; Duration: 1 days take 30 min prior to mri 08/25/2021 Active rOPINIRole HCl 3 MG Tablet 1 tablet 1 to 3 hours before bedtime Orally Once a day Active predniSONE 10 MG Tablet 1 tablet Orally Once a day Active Omeprazole 40 MG Capsule Delayed Release 1 PRN Oral Active Probiotic - Capsule as directed Orally Active Nitrofurantoin Macrocrystal 100 MG Capsule 1 PRN Oral Active Meloxicam 15 MG Tablet Take 1 tablet by mouth once daily; Duration: 30 I will refill this ONE more time. She will need to have her PCP rx this from now on Active Levodopa Active Hydroxychloroquine Sulfate 200 MG Tablet as directed Orally Active Gabapentin 600 MG Tablet 1 tablet Orally three times a day; Duration: 90 days 12/05/2023 Active Fluoxetine Active Estradiol 1 MG Tablet 1 tablet Orally Once a day Active Carbidopa-Levodopa 25-100 MG Tablet 1 PRN Oral Active Azilect 1 MG Tablet 1 tablet Orally Once a day Active CoQ10 200 MG Capsule as directed Orally Active clonazePAM 0.5 MG Tablet 1 tablet at bedtime Orally Once a day Active Amantadine HCl 100 MG Capsule 1 PRN Oral Active Encounters Encounter Location Date Provider Diagnosis [facility] [address] [place] [address] 02/14/2025 Osman Ferguson Status post right kn ee replacement Z96.651 Assessments Encounter Date Diagnosis (ICD Code) Assessment Notes Treatment Notes Treatment Clinical Notes Section Notes 02/14/2025 Status post right knee replacement (ICD-10 - Z96.651) Rakel is doing well. I do not think there is any benefit to home health. I think she would do excellent in a balance and strengthening program at [facility] therapy [facility] here. I will set her up for therapy for a month. I will see her back in 1 month time. Plan Of Treatment Next Appt Details Provider Name:Osman Ferguson , 03/14/2025 09:20:00 AM, [address] [place], [address], History and Physical Notes * HPI (History of Present Illness) Category Sub-Category Detail Notes Category Not es Provider Note Rakel is seen after a right total knee arthroplasty complicated by dehiscence after a fall. She is working with home health at home and is doing fantastic. He states she has no pain today. Her gait is improving. She tells me that she was working with the physical therapy specialist clinic care on a balancing program for her Parkinson's. They are interested in starting that again. Examination Category Sub-Category Detail Notes Category Not es General Examination Rakel is right knee incision is completely healed. Her motion is from full extension 120 degrees. She has full active extension of her knee. 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 She is working with home health at home and is doing fantastic. He states she has no pain today. Her gait is improving. She tells me that she was working with the physical therapy specialist clinic care on a balancing program for her Parkinson's. They are interested in starting that again. * Medications: T akingAmantadine HCl 100 MG Capsule 1 PRN Oral Azilect 1 MG Tablet 1 tablet Orally Once a day Carbidopa-Levodopa 25-100 MG Tablet 1 PRN Oral clonazePAM 0.5 MG Tablet 1 tablet at bedtime Orally Once a day CoQ10 200 MG Capsule as directed Orally Estradiol 1 MG Tablet 1 tablet Orally Once a day Fluoxetine Gabapentin 600 MG Tablet 1 tablet Orally three times a day Hydroxychloroquine Sulfate 200 MG Tablet as directed Orally Levodopa Meloxicam 15 MG Tablet Take 1 tablet by mouth once daily , Notes to Pharmacist: I will refill this ONE more time. She will need to have her PCP rx this from now onNitrofurantoin Macrocrystal 100 MG Capsule 1 PRN Oral Omeprazole 40 MG Capsule Delayed Release 1 PRN Oral predniSONE 10 MG Tablet 1 tablet Orally Once a day Probiotic - Capsule as directed Orally ropinirole 1 Every Night , Notes to Pharmacist: *Reorder from [facility] and Interaction Alerts*rOPINIRole HCl 3 MG Tablet 1 tablet 1 to 3 hours before bedtime Orally Once a day Valium 10 MG Tablet 1 tablet as needed Orally Once a day , Notes to Pharmacist: take 30 min prior to mriVenlafaxine HCl 50 MG Tablet 1 tablet with food Orally Once a day Vitamin D3 50 MCG (1999 [place]) Capsule 1 capsule Orally Once a day Taking Amantadine HCl 100 MG Capsule 1 PRN Oral Taking Azilect 1 MG Tablet 1 tablet Orally Once a day Taking Carbidopa-Levodopa 25-100 MG Tablet 1 PRN Oral Taking clonazePAM 0.5 MG Tablet 1 tablet at bedtime Orally Once a day Taking CoQ10 200 MG Capsule as directed Orally Taking Estradiol 1 MG Tablet 1 tablet Orally Once a day Taking Fluoxetine Taking Gabapentin 600 MG Tablet 1 tablet Orally three times a day Taking Hydroxychloroquine Sulfate 200 MG Tablet as directed Orally Taking Levodopa Taking Meloxicam 15 MG Tablet Take 1 tablet by mouth once daily , Notes to Pharmacist: I will refill this ONE more time. She will need to have her PCP rx this from now onTaking Nitrofurantoin Macrocrystal 100 MG Capsule 1 PRN Oral Taking Omeprazole 40 MG Capsule Delayed Release 1 PRN Oral Taking predniSONE 10 MG Tablet 1 tablet Orally Once a day Taking Probiotic - Capsule as directed Orally Taking ropinirole 1 Every Night , Notes to Pharmacist: *Reorder from [facility] and Interaction Alerts*Taking rOPINIRole HCl 3 MG Tablet 1 tablet 1 to 3 hours before bedtime Orally Once a day Taking Valium 10 MG Tablet 1 tablet as needed Orally Once a day , Notes to Pharmacist: take 30 min prior to mriTaking Venlafaxine HCl 50 MG Tablet 1 tablet with food Orally Once a day Taking Vitamin D3 50 MCG (1999 [place]) Capsule 1 capsule Orally Once a day Not-TakingclonazePAM 1 PRN , Notes to Pharmacist: *[facility]*Fluoxetine 1 PRN , Notes to Pharmacist: *[facility]*Gabapentin 100 MG Capsule 1 capsule Orally TID Gabapentin 100 MG Capsule 1 capsule Orally three times a day Gabapentin 300 MG Capsule 1 capsule Orally three times a day Gabapentin 600 MG Tablet 1 capsule Orally three times a day HYDROcodone-Acetaminophen 0.5 Tablet Every 12 hours PRN , Notes to Pharmacist: *[facility]*Hydroxychloroquine 1 PRN , Notes to Pharmacist: *[facility]*Omeprazole 40 MG Capsule Delayed Release 1 capsule 30 minutes before morning meal Orally Once a day venlafaxine 1 Tablet Twice a Day , Notes to Pharmacist: *[facility]*Not-Taking clonazePAM 1 PRN , Notes to Pharmacist: *[facility]*Not-Taking Fluoxetine 1 PRN , Notes to Pharmacist: *[facility] Interaction Alert[facility]*Not-Taking Gabapentin 100 MG Capsule 1 capsule Orally TID Not-Taking Gabapentin 100 MG Capsule 1 capsule Orally three times a day Not-Taking Gabapentin 300 MG Capsule 1 capsule Orally three times a day Not-Taking Gabapentin 600 MG Tablet 1 capsule Orally three times a day Not-Taking HYDROcodone-Acetaminophen 0.5 Tablet Every 12 hours PRN , Notes to Pharmacist: *[facility]*Not-Taking Hydroxychloroquine 1 PRN , Notes to Pharmacist: *Reorder from [facility] and Interaction Alerts*Not-Taking Omeprazole 40 MG Capsule Delayed Release 1 capsule 30 minutes before morning meal Orally Once a day Not-Taking venlafaxine 1 Tablet Twice a Day , Notes to Pharmacist: *[facility]* Objective: * Examination: G eneral Examination: K athtalon is right knee incision is completely healed. Her motion is from full extension 120 degrees. She has full active extension of her knee. Assessment: * Assessment: 1. S tatus post right knee replacement - Z96.651 (Primary) Rakel is doing well. I do no t think there is any benefit to home health. I think she would do excellent in a balance and strengthening program at physical therapy specialist clinic here. I will set her up for therapy for a month. I will see her back in 1 month time. Billing Information: * Procedure Codes: * Electronic signature of Zia Ferguson MD on 02/16/2025 at 11:25 PM CDT Sign off status: Pending * Provider: Mason Ferguson MD Date: 1 Generated for Karli lino/Sherrell/Ramon on: 11:25 PM CDT
[2025-02-16 23:17] VITALS: BP 114/63; PULSE 106; RESP 16; TEMP 36.8; O2SAT 94; BMI 40.4
--- OUTSIDE RECORDS SUMMARY | 2025-02-16 23:25 | XMS_ITS | Encounter Summary ---
Author Organization [facility] Address [address] [place] [address] Care Team Providers Care Microelectronics Assembler Name Role Phone Unavailable Primary Care Provider Unavailabl e Encounter Details Date Type Department Care Team (Latest Contact Info) Description 08/07/2003 Outpatient Historical [facility] [address] [place] [address] Lorenzo Millan MD NO ADDRESS ON FILE RHEUMATISM NOS (Primary Dx) Social History Tobacco Use Types Packs/Day Years Used Date Smoking Tobacco: Never Assessed Comments Unknown Sex and Gender Information Value Date Recorded Sex Assigned at Not on file 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
--- OUTSIDE RECORDS SUMMARY | 2025-02-16 23:25 | XMS_ITS | Clinical Summary ---
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
--- OUTSIDE RECORDS SUMMARY | 2025-02-16 23:25 | XMS_ITS | Patient Health Record ---
Author Organization [facility] Address [address] [place] [address] Care Team Providers Care Pressfitter Name Role Phone Thanh Washington DO Primary Care Provider Unavail able Osman Ferguson Unavailable [phone] Migration, Provider Unavailable Unavailable Reza Cody Unavailable [phone] Allergies Allergen (clinical drug ingredient) Drug/Non Drug Allergy documented on EMR Reaction Allergy Type Onset Date Status Substance with sulfonamide structure and antibacterial mechanism of action (substance) SULFA (SULFONAMIDE ANTIBIOTICS) (uncoded) Nausea Allergy Active Substance with sulfonamide structure and antibacterial mechanism of action (substance) Sulfa Antibiotics Unknown Drug Allergy Active Results Component Value Reference Range Flag Notes Chest PA/Lat-56696 Reviewed date:06/24/2024 12:24:33 PM Interpretation: Performing Lab: Notes/Report: [id number]&org=iSite CBC Reflex Man Diff 99581, 8 5007 Reviewed date:06/24/2024 12:24:33 PM Interpretation: Performing Lab: Notes/Report: Diagnosis Description: Other specific arthropathies, not elsewhere classified, right shoulder Diagnosis Description: Unspecified rotator cuff tear or rupture of right shoulder, not specified as traumatic WBC 8.3 4.5-11.0 X10'3 RBC 4.23 4.00-5.20 X10'6 Hgb 13.9 12.0-16.0 G/DL Hct 41.8 36.0-46.0 % MCV 98.8 80.0-100.0 FL MCH 32.9 27.0-31.0 PG HI MCHC 33.3 31.0-37.0 G/DL Platelet 280 150-400 X10'3 RDW-SD 49.4 35.0-49.0 FL HI RDW-CV 13.5 12.2-15.6 % MPV 11.4 9.2-12.0 FL Review Auto Diff Conf WBC Auto Diff--[id number] Reviewed date:06/24/2024 12:24:33 PM Interpretation: Performing Lab: Notes/Report: Added by Discern Rules Neutro Auto% 62.4 40.0-70.0 % Lymph Auto% 21.6 22.0-44.0 % LOW [place] Auto% 9.7 3.0-7.0 % HI Eos Auto% 5.6 2.0-4.0 % HI Baso Auto% 0.6 0.0-1.0 % NRBC% .00 .00-.20 /100 intact WBC's Neutro Abs 5.16 .80-7.70 Absolute Neutrophil Count 5160 NA Lymph Abs 1.79 .10-4.10 [place]rance Abs .80 .20-1.00 Eos Abs .46 .00-.40 HI Baso Abs .05 .00-.20 NRBC# .00 .00-.20 X10'3 Imm Gran Abs .01 .00-.10 Imm Gran% .1 .0-.4 % UA Reflex Micro, Reflex Cult 10606, 37452, 94724 Reviewed date:06/24/2024 12:24:07 PM Interpretation: Performing Lab: Notes/Report: Diagnosis Description: Other specific arthropathies, not elsewhere classified, right shoulder Diagnosis Description: Unspecified rotator cuff tear or rupture of right shoulder, not specified as traumatic Color UA Yellow NA Clarity UA Clear NA Specific gravity UA 1.029 1.005-1.030 Urine pH 7.0 5.0-8.0 NA Urine Glucose Negative NA Urine Bilirubin Negative NA Urine Ketone Trace NA Urine Blood Negative NA Urine Protein 1+ NA Urobilinogen 1.0 0.1-1.0 NA Urine Nitrite Negative NA Urine Leukocyte 1+ NA Normal UA No UA Microscopic--[id number] Reviewed date:06/24/2024 12:24:07 PM Interpretation: Performing Lab: Notes/Report: Micro UA ordered by [employer] Expert Rules system. RBC U 2 NA WBC U 19 0-5 /HPF HI Bacteria None Seen Hyaline Casts <1 NA SQ EPI 6 NA Comprehensive Metabolic Pane l (CMP) 07048 Reviewed date:06/24/2024 12:24:07 PM Interpretation: Performing Lab: Notes/Report: Diagnosis Description: Other specific arthropathies, not elsewhere classified, right shoulder Diagnosis Description: Unspecified rotator cuff tear or rupture of right shoulder, not specified as traumatic Glucose Serum 87 71-110 MG/DL Testing p erformed at [facility], [address] [place] [address] [place] [address]. CLIA ID#: [id number] BUN 11 7-21 MG/DL Creat .53 .51-1.17 MG/DL Q-bzhhyv-v-benzoquin one imine (NAPQI) is a metabolite of acetaminophen, NAPQI concentrations of apparoximately 10 mg/L correlation to toxic levels of acetaminophen demonstrates a greater than or equil to 10% change in results. NAPQI concentrations greater than this may lead to falsely depressed results for patient samples. Use of this assay is not recommended for patients undergoing treatment with phenindione, due to the potential for falsely depressed results. GFR 98.1 NA Calculation pe rformed from GFR calculator provided by the [employer]. Glomerular Filtration rate(GRF) is the best overall index of kidney function. Normal GFR varies according to age,sex, body size, and declines with age. The National Kidney Foundation recommends using the CKD-EPI Creatinine Equation(2020) to estimate GFR. BUN/Creat Ratio 20.8 12.0-20.0 % HI Total Protein 7.3 5.8-8.0 G/DL Albumin 4.4 3.2-4.8 G/DL Globulin 2.8 2.3-3.5 G/DL Alb/Glob 1.6 0.8-2.2 Calcium 9.8 8.7-10.4 MG/DL Sodium 142 136-145 MMOL/L Potassium 4.2 3.5-5.1 MMOL/L Chloride 101 98-107 MMOL/L CO2 30.0 20.0-31.0 MMOL/L Anion Gap 15 5-15 Alk Phos 112 46-116 Bili Total .3 .3-1.2 MG/DL Use of this assay is not recommended for patients undergoing treatment with eltrombopag due to the potential for falsely elevated results. AST/SGOT 24 15-37 UNIT/L ALT/SGPT <7 12-78 UNIT/L LOW Osmo Serum,Calculated 293 280-300 MOSM/KG Chest PA/Lat-61922 Reviewed date:06/24/2024 12:24:07 PM Interpretation: Performing Lab: Notes/Report: See Below For Report Chest PA/Lat Diagnosis Description: Other specific arthropathies, not elsewhere classified, right shoulder Read See Below For Report Chest PA/Lat-60654 Reviewed date:01/13/2025 12:20:17 PM Interpretation: Performing Lab: Notes/Report: See Below For Report Chest PA/Lat Diagnosis Description: Unilateral primary osteoarthritis, right knee Read See Below For Report IH Shoulder Min 3V Right - 7 3030 Reviewed date:07/12/2024 07:43:28 AM Interpretation: Performing Lab: Notes/Report: [id number]&org=iSinimesh IH Shoulder Min 3V Right - 7 3030 Reviewed date:07/12/2024 07:43:28 AM Interpretation: Performing Lab: Notes/Report: See Below For Report Shoulder Min 3V Right AP in 30 degrees external rotation, axillary lateral Glucometer WBG--83586 Reviewed date:07/12/2024 07:43:28 AM Interpretation: Performing Lab: Notes/Report: Glucometer WBG 189 65-110 MG/DL [facility]: [id number]~Tent Worker: [id number] GABRIELE HERNANDEZ Knee 4 or more Views Right-7 5891 Reviewed date:10/30/2024 08:23:33 AM Interpretation: Performing Lab: Notes/Report: The report for this exam was dictated at [facility] . FINAL REPORT Read The report for this exam was dictated at [facility] . CBC Reflex Man Diff 86232, 8 5007 Reviewed date:01/13/2025 12:20:17 PM Interpretation: Performing Lab: Notes/Report: Diagnosis Description: Unilateral primary osteoarthritis, right knee WBC 8.5 4.5-11.0 X10'3 RBC 4.34 4.00-5.20 X10'6 Hgb 14.3 12.0-16.0 G/DL Hct 44.8 36.0-46.0 % MCV 103.2 80.0-100.0 FL HI MCH 32.9 27.0-31.0 PG HI MCHC 31.9 31.0-37.0 G/DL Platelet 267 150-400 X10'3 RDW-SD 57.7 35.0-49.0 FL HI RDW-CV 15.0 12.2-15.6 % MPV 11.3 9.2-12.0 FL Review Auto Diff Conf Comprehensive Metabolic Pane l (CMP) 74494 Reviewed date:01/13/2025 12:20:17 PM Interpretation: Performing Lab: Notes/Report: Diagnosis Description: Unilateral primary osteoarthritis, right knee Glucose Serum 87 71-110 MG/DL Testing p erformed at [facility], [address] [place] [address] [place] [address]. CLIA ID#: [id number] BUN 16 7-21 MG/DL Creat .61 .51-1.17 MG/DL R-oynbcv-b-benzoquin one imine (NAPQI) is a metabolite of acetaminophen, NAPQI concentrations of apparoximately 10 mg/L correlation to toxic levels of acetaminophen demonstrates a greater than or equil to 10% change in results. NAPQI concentrations greater than this may lead to falsely depressed results for patient samples. Use of this assay is not recommended for patients undergoing treatment with phenindione, due to the potential for falsely depressed results. GFR 94.5 NA Calculation pe rformed from GFR calculator provided by the National [employer]. Glomerular Filtration rate(GRF) is the best overall index of kidney function. Normal GFR varies according to age,sex, body size, and declines with age. The National Kidney Foundation recommends using the CKD-EPI Creatinine Equation(2020) to estimate GFR. BUN/Creat Ratio 26.2 12.0-20.0 % HI Total Protein 7.4 5.8-8.0 G/DL Albumin 4.3 3.2-4.8 G/DL Globulin 3.1 2.3-3.5 G/DL Alb/Glob 1.4 0.8-2.2 Calcium 9.6 8.7-10.4 MG/DL Sodium 140 136-145 MMOL/L Potassium 4.5 3.5-5.1 MMOL/L Chloride 100 98-107 MMOL/L CO2 30.2 20.0-31.0 MMOL/L Anion Gap 14 5-15 Alk Phos 139 46-116 HI Bili Total .4 .3-1.2 MG/DL Use of this assay is not recommended for patients undergoing treatment with eltrombopag due to the potential for falsely elevated results. AST/SGOT 40 15-37 UNIT/L HI ALT/SGPT 7 12-78 UNIT/L LOW Osmo Serum,Calculated 290 280-300 MOSM/KG UA Reflex Micro, Reflex Cult 54621, 38795, 53357 Reviewed date:01/13/2025 12:20:17 PM Interpretation: Performing Lab: Notes/Report: Diagnosis Description: Unilateral primary osteoarthritis, right knee Color UA Dark Yellow NA Clarity UA Clear NA Specific gravity UA 1.028 1.005-1.030 Urine pH 6.5 5.0-8.0 NA Urine Glucose Negative NA Urine Bilirubin 1+ NA Urine Ketone Trace NA Urine Blood Negative NA Urine Protein Trace NA Urobilinogen 1.0 0.1-1.0 NA Urine Nitrite Negative NA Urine Leukocyte Trace NA Normal UA Yes Urine Culture No MRSA Screen PCR--[id number] Reviewed date:01/13/2025 12:20:17 PM Interpretation: Performing Lab: Notes/Report: Diagnosis Description: Unilateral primary osteoarthritis, right knee MRSA Screen NOT DETECTED NA Chest PA/Lat-31019 Reviewed date:01/13/2025 12:20:17 PM Interpretation: Performing Lab: Notes/Report: icx=[id number]=iSite WBC Auto Diff--[id number] Reviewed date:01/13/2025 12:20:17 PM Interpretation: Performing Lab: Notes/Report: Added by Discern Rules Neutro Auto% 66.8 40.0-70.0 % Lymph Auto% 20.5 22.0-44.0 % LOW [place] Auto% 8.8 3.0-7.0 % HI Eos Auto% 2.9 2.0-4.0 % Baso Auto% 0.5 0.0-1.0 % NRBC% .00 .00-.20 /100 intact WBC's Neutro Abs 5.66 .80-7.70 Absolute Neutrophil Count 5660 NA Lymph Abs 1.74 .10-4.10 [place] Abs .75 .20-1.00 Eos Abs .25 .00-.40 Baso Abs .04 .00-.20 NRBC# .00 .00-.20 X10'3 Imm Gran Abs .04 .00-.10 Imm Gran% .5 .0-.4 % HI CBC w\o Diff [id number] Reviewed date:01/17/2025 08:50:02 AM Interpretation: Performing Lab: Notes/Report: WBC 13.1 4.5-11.0 X10'3 HI RBC 3.52 4.00-5.20 X10'6 LOW Hgb 11.6 12.0-16.0 G/DL LOW Hct 35.8 36.0-46.0 % LOW MCV 101.7 80.0-100.0 FL HI MCH 33.0 27.0-31.0 PG HI MCHC 32.4 31.0-37.0 G/DL Platelet 226 150-400 X10'3 RDW-SD 55.1 35.0-49.0 FL HI RDW-CV 14.5 12.2-15.6 % MPV 11.6 9.2-12.0 FL US Surgery Unlisted Reviewed date:01/17/2025 10:58:39 AM Interpretation: Performing Lab: Notes/Report: This procedure was dictated and transcribed outside of the [employer] system. The results may be found in the patient's physical chart. FINAL REPORT Read This procedure was dictated and transcribed outside of the [employer] system. The results may be found in the patient's physical chart. Basic Metabolic Panel (BMP) 72008 Reviewed date:01/21/2025 11:53:03 AM Interpretation: Performing Lab: Notes/Report: 5419@1933 Sodium 145 136-145 MMOL/L Potassium 3.5 3.5-5.1 MMOL/L Chloride 108 98-107 MMOL/L HI CO2 25.6 20.0-31.0 MMOL/L Glucose Serum 78 71-110 MG/DL Testing p erformed at [facility], [address] [place] [address] [place] [address]. CLIA ID#: [id number] BUN 15 7-21 MG/DL Creat .50 .51-1.17 MG/DL LOW W-daosqw-y-benzoquin one imine (NAPQI) is a metabolite of acetaminophen, NAPQI concentrations of apparoximately 10 mg/L correlation to toxic levels of acetaminophen demonstrates a greater than or equil to 10% change in results. NAPQI concentrations greater than this may lead to falsely depressed results for patient samples. Use of this assay is not recommended for patients undergoing treatment with phenindione, due to the potential for falsely depressed results. GFR 99.1 NA Calculation pe rformed from GFR calculator provided by the National Kid[employer] Foundation. Glomerular Filtration rate(GRF) is the best overall index of kidney function. Normal GFR varies according to age,sex, body size, and declines with age. The National Kidney Foundation recommends using the CKD-EPI Creatinine Equation(2020) to estimate GFR. Anion Gap 15 5-15 BUN/Creat Ratio 30.0 12.0-20.0 % HI Calcium 8.1 8.7-10.4 MG/DL LOW Osmo Serum,Calculated 300 280-300 MOSM/KG IH Knee 2V Right - 18020 Reviewed date:01/17/2025 08:50:02 AM Interpretation: Performing Lab: Notes/Report: See Below For Report Knee AP/Lat Right patient in recovery room IH Knee 2V Right - 45060 Reviewed date:01/17/2025 08:50:02 AM Interpretation: Performing Lab: Notes/Report: [id number]&org=iSite Knee 4 or more Views Right-7 3564 Reviewed date:10/30/2024 08:25:49 AM Interpretation: Performing Lab: Notes/Report: ihs=[id number]&org=iSite US Surgery Unlisted Reviewed date:07/15/2024 01:42:44 PM Interpretation: Performing Lab: Notes/Report: This procedure was dictated and transcribed outside of the [employer] system. The results may be found in the patient's physical chart. FINAL REPORT Read This procedure was dictated and transcribed outside of the [employer] system. The results may be found in the patient's physical chart. Culture Urine Reflex--[id number] Reviewed date:06/24/2024 12:24:07 PM Interpretation: Performing Lab: Notes/Report: Culture Urine Reflex RAKEL Mooney Culture Urine Reflex t: Culture Urine Reflex Culture Urine Reflex [facility]-[id number] Culture Urine Reflex n: Culture Urine Reflex Microbiology Culture Urine Reflex PROCEDURE: Culture Urine Reflex [] Culture Urine Reflex SOURCE: U CC BODY SITE: Culture Urine Reflex COLLECTED DATE/TIME : 06/21/2024 12:53 [employer] RECEIVED DATE/TIME: 06/21/2024 12:53 [employer] Culture Urine Reflex START DATE/TIME: 06/21/2024 12:53 [employer] FREE TEXT SOURCE: Culture Urine Reflex FINAL REPORT Culture Urine Reflex Final Report [] Culture Urine Reflex Verified Date/Time: 06/23/2024 09:20 [employer] Culture Urine Reflex > 10,000 cfu/ml mix ed superficial fabrice Culture Urine Reflex Multiple microorganisms present Culture Urine Reflex Probable contamination MRSA Screen PCR--[id number] Reviewed date:06/24/2024 12:24:07 PM Interpretation: Performing Lab: Notes/Report: Diagnosis Description: Other specific arthropathies, not elsewhere classified, right shoulder Diagnosis Description: Unspecified rotator cuff tear or rupture of right shoulder, not specified as traumatic MRSA Screen NOT DETECTED NA Reason For Referral Reason Rehab on leg strain; patient does have Parkinson's; twice a week, 4 to 6-week Diagnosis 1 Strain of gastrocnem ius muscle of left lower extremity, initial encounter (S86.112A) Referral Organization [facility] Referring Provider First Name Reza Referring Provider Last Name Escobar Referring Provider Speciality Orthopedic Surgery Referred Provider Physical Therapy Kurtis Hein Referred Provider Specialty Physical The rapist Referral Priority Routine Reason Evaluate and treat p atient S/P RIGHT total shoulder arthroplasty 07/11/2024, 2-3 times a week for 4-6 weeks. 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 Referring Provider First Name Osman Referring Provider Last Name Marty [facility] Referred Provider Physical Therapy Kurtis Hein Referred Provider Specialty Physical The rapist Referral Priority Routine Reason Continue out patient therapy S/P reverse RIGHT TSA working on passive and active range of motion, progress to strengthening. 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 Referring Provider First Name Osman Referring Provider Last Name Marty Referring Provider Speciality Orthopedic Surgery Referred Provider Physical Therapy Kurtis Heins Referred Provider Specialty Physical The rapist Referral Priority Routine Medications Medication SIG (Take, Route, Frequency, Duration) Notes Start Date End Date Status rOPINIRole HCl 3 MG Tablet 1 tablet 1 to 3 hours before bedtime Orally Once a day Active Carbidopa-Levodopa 25-100 MG Tablet 1 PRN Oral Active Gabapentin 300 MG Capsule 1 capsule Orally three times a day; Duration: 30 days 04/13/2022 Not-Taking Azilect 1 MG Tablet 1 tablet Orally Once a day Active Gabapentin 100 MG Capsule 1 capsule Orally three times a day; Duration: 30 day(s) 03/19/2022 Not-Taking CoQ10 200 MG Capsule as directed Orally Active HYDROcodone-Acetaminophe n 0.5 Tablet Every 12 hours PRN *Pick strength-form from [employer] for eRX* Not-Taking clonazePAM 0.5 MG Tablet 1 tablet at bedtime Orally Once a day Active Gabapentin 600 MG Tablet 1 capsule Orally three times a day; Duration: 30 day(s) 06/01/2022 Not-Taking clonazePAM 1 PRN *Pick strength-form from [employer] for eRX* Not-Taking Vitamin D3 50 MCG (1999 UT) Capsule 1 capsule Orally Once a day Active Amantadine HCl 100 MG Capsule 1 PRN Oral Active Gabapentin 100 MG Capsule 1 capsule Orally TID; Duration: 30 day(s) 04/12/2021 Not-Taking Fluoxetine 1 PRN *Reorder from [employer] for eRx and Interaction Alerts* Not-Taking Venlafaxine HCl 50 MG Tablet 1 tablet with food Orally Once a day Active Valium 10 MG Tablet 1 tablet as needed Orally Once a day; Duration: 1 days take 30 min prior to mri 08/25/2021 Active Fluoxetine Active Estradiol 1 MG Tablet 1 tablet Orally Once a day Active predniSONE 10 MG Tablet 1 tablet Orally Once a day Active Omeprazole 40 MG Capsule Delayed Release 1 PRN Oral Active ropinirole 1 Every Night *Reorder from [employer] for eRx and Interaction Alerts* Active Probiotic - Capsule as directed Orally Active Levodopa Active Hydroxychloroquine Sulfate 200 MG Tablet as directed Orally Active Nitrofurantoin Macrocrystal 100 MG Capsule 1 PRN Oral Active Meloxicam 15 MG Tablet Take 1 tablet by mouth once daily; Duration: 30 I will refill this ONE more time. She will need to have her PCP rx this from now on Active Hydroxychloroquine 1 PRN *Reorder from [facility] for eRx and Interaction Alerts* Not-Taking Gabapentin 600 MG Tablet 1 tablet Orally three times a day; Duration: 90 days 12/05/2023 Active venlafaxine 1 Tablet Twice a Day *Reorder from [facility] for eRx and Interaction Alerts* Not-Taking Omeprazole 40 MG Capsule Delayed Release 1 capsule 30 minutes before morning meal Orally Once a day Not-Taking Social History Tobacco Use: Social History Observation Description Date Details (start date - stop date) Never Smoker NA - NA Social History Depression Screening Social Info Question Answer Notes PHQ-9 Little interest or p sapna in doing things More than half the days Feeling down, depressed, or hopeless More than h jail the days Trouble falling or staying a sleep, or sleeping too much More than half the days Feeling tired or having little energy More than half the days Poor appetite or overeating More than half the d ays Feeling bad about yourself, or that you are a failure, or have let yourself or your family down More than half the days Trouble concentrating on thi ngs, such as reading the newspaper or watching television More than half the days Moving or speaking so slowly that other people could have noticed. Or the opposite ? being so fidgety or restless that you have been moving around a lot more than usual More than half the days Thoughts that you would be b jacinto off , or of hurting yourself in some way More than half the days (Consider Suicide Assessment Risk) Total Score 18 Interpretation Moderately severe depression Drugs/Alcohol: Social Info Question Answer Notes Alcohol Screen (Audit-C) Did you have a drink containing alcohol in the past year? Yes How often did you have a drink containing alcohol in the past year? Monthly or less (1 point) Points 1 Interpretation Negative Drugs Have you used drugs other than those for medical reasons in the past 12 months? No Tobacco Use: Social Info Question Answer Notes xTobacco Use/Smoking Are you a nonsmoker Additional Details Category Social Info Options Details Migrated Social History Migrated Social History Alcoholic beverages? - No, Are you or is there a chance you could be - No, Currently on disability? - Yes, Drug or substance abuse? - No, exposure to toxins/poisonous substances at work - No, Involved in any legal proceedings or lawsuits? - No, Marital Status - , Nonprescription drug use? - No, Participation in detoxification or rehabilitation - No, Smoking - No, Working currently? - No Problems Problem Type SNOMED Code ICD Code Onset Dates Problem Status W/U Status Risk Notes Problem Essential tremor (265973158) Essential tremor (G25.0) Active confirmed Problem Disorder of joint of right shoulder region (disorder) (13169161310266632) Other specific arthropathies, not elsewhere classified, right shoulder (M12.811) Active confirmed Problem Rupture of right rotator cuff (07610973396302762) Unspecified rotator cuff tear or rupture of right shoulder, not specified as traumatic (M75.101) Active confirmed Problem Osteoarthritis of knee (001206755) Primary osteoarthritis of right knee (M17.11) Active confirmed Problem Lumbar spondylosis (594869813) Lumbar spondylosis (M47.816) Active confirmed Problem Acquired spondylolisthesis (827303338) 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) Active confirmed Problem Arthritis of right knee (4579063999444083) Arthritis of knee, right (M17.11) Active confirmed Problem 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) Active confirmed Problem Skin sensation disturbance (34833436) Arm paresthesia, left (R20.2) Active confirmed Problem Acquired spondylolisthesis (995818704) Spondylolisthesis at L3-L4 level (M43.16) Active confirmed Problem 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) (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) 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 confirmed Problem Rupture of right rotator cuff (45599889190985476) Nontraumatic rotator cuff tear, right (M75.101) Active confirmed Problem Falls (572726778) Falls (R29.6) Active confirme d Problem Lesion of ulnar nerve (044851278) 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 [address] [place] [address] 01/16/2025 Osman Ferguson [facility] [address] [place] [address] 02/14/2025 Osman Ferguson Status post right kn ee replacement Z96.651 [facility] [address] [place] [address] 03/15/2024 Reza Cody Other specific arthropathies, not elsewhere classified, right shoulder M12.811 and Unspecified rotator cuff tear or rupture of right shoulder, not specified as traumatic M75.101 [facility] [address] [place] [address] 04/19/2024 Reza Cody Strain of gastrocnemius muscle of left lower extremity, initial encounter S86.112A and Traumatic complete tear of right rotator cuff, subsequent encounter S46.011D [facility] [address] [place] [address] 05/24/2024 Osman Ferguson Other specific arthropathies, not elsewhere classified, right shoulder M12.811 and Unspecified rotator cuff tear or rupture of right shoulder, not specified as traumatic M75.101 [facility] [address] [place] [address] 06/14/2024 Reza Cody Unspecified rotator cuff tear or rupture of right shoulder, not specified as traumatic M75.101 and Other specific arthropathies, not elsewhere classified, right shoulder M12.811 [facility] [address] [place] [address] 07/11/2024 Osman Ferguson [facility] [address] [place] [address] 07/19/2024 Osman Marty Status post total replacement of right shoulder Z96.611 [facility] [address] [place] [address] 08/16/2024 Osman Marty Status post total replacement of right shoulder Z96.611 [facility] [address] [place] [address] 09/27/2024 Osman Marty Status post total replacement of right shoulder Z96.611 [facility] [address] [place] [address] 10/25/2024 Osman Marty Status post reverse total replacement of right shoulder Z96.611 [facility] [address] [place] [address] 10/29/2024 Reza Cody Recurrent pain of right knee M25.561 ; Primary osteoarthritis of right knee M17.11 and Essential tremor G25.0 [facility] [address] [place] [facility] [place] [address] 11/29/2024 Reza Cody Primary osteoarthrit is of right knee M17.11 [facility] [address] [place] [address] 01/03/2025 Osman Ferguson Primary osteoarthrit is of right knee M17.11 ; Essential tremor G25.0 and Pre-op exam Z01.818 [facility] [address] [place] [facility] [place] [place] [address] 01/31/2025 Osman Marty Status post right kn ee replacement Z96.651 [facility] 0 0 03/02/2024 Provider Migration [facility] 0 0 03/03/2024 Provider Migration [facility] [address] [place] [address] 06/27/2024 Osman Ferguson [facility] [address] [place] [address] 07/08/2024 Osman Ferguson Traumatic complete tear of right rotator cuff, subsequent encounter S46.011D and Falls R29.6 [facility] [address] [facility] [place] [address] 07/29/2024 Osman Ferguson [facility] [address] [facility] [address] 10/14/2024 Osman Ferguson [facility] [address] [facility] [address] 10/14/2024 Osman Ferguson [facility] [address] [facility] [address] 02/04/2025 Osman Ferguson Assessments Encounter Date Diagnosis (ICD Code) Assessment [...] see her back in 1 month time. 11/29/2024 Primary osteoarthritis of right knee (ICD-10 - M17.11) This individual has primary degenerative arthritis of the right knee. She received a significant amount of pain relief with the standard cortisone injection. We talked about options at this point. And I think 1 thing we can consider would be a long-acting corticosteroid injection. She is definitely interested in this. Procedure: 1 vial of triamcinolone XR is reconstituted with 5 mL diluent. ChloraPrep is applied to the right knee. The solution is then injected via 22-gauge needle via the inferior medial portal without difficulty. Patient tolerates the procedure well. Will recheck in 3 months. 03/15/2024 Other specific arthropathies, not elsewhere classified, right shoulder (ICD-10 - M12.811) 03/15/2024 Unspecified rotator cuff tear or rupture of right shoulder, not specified as traumatic (ICD-10 - M75.101) Individual I think has a probable rotator cuff tear coinciding with degenerative arthritis of the right shoulder. She is not a good surgical candidate secondary to the fact she has very severe Parkinson's disease. She falls frequently and I would be very worried about her falling and fracturing her prosthesis if we were to do a total shoulder replacement. I have discussed other options with her and her . We both agree to proceed with a cortisone injection to the right shoulder. Procedure: ChloraPrep is applied to the right shoulder. A mixture of 2 cc plain lidocaine +1 cc Depo-Medrol are injected into the right subacromial space without difficulty. Patient tolerates the procedure well. Recheck in 6 weeks. 04/19/2024 Traumatic complete tear of right rotator cuff, subsequent encounter (ICD-10 - S46.011D) Paulina is had an arthroscopy with rotator cuff repair x 2. I do not consider her a candidate for further treatment on this operatively at this time. She is wondering if I will give her a cortisone injection and I see no reason why not. Procedure: My research assistant professor helped hold the patient. ChloraPrep is applied to the right shoulder. A mixture of 2 cc plain lidocaine +1 cc Depo-Medrol are injected into the right subacromial bursa without difficulty. Patient tolerates the procedure well. 04/19/2024 Strain of gastrocnemius muscle of left lower extremity, initial encounter (ICD-10 - S86.112A) Dayana definitely has a leg strain. I think her tendo Achilles is completely intact. I talked to her about this and I think the best thing to do would be to try some physical therapy. I will get this ordered. I would like for her to be seen in about 6 to 8 weeks to see if this is help. Unfortunately I will be out at that time. I am wondering if my partner Dr. Serjio Ferguson will see her. 05/24/2024 Other specific arthropathies, not elsewhere classified, right shoulder (ICD-10 - M12.811) I discussed reverse total shoulder with them in detail. I think this would be the most reliable chance she will have to eliminate pain and improve function. I showed her samples of the components on models.. I made aware of the magnitude of the procedure. I made them aware that even with surgery she would have likely some continued pain and functional loss but overall I think they would be much improved. I discussed the risk including component failure and possible need for revision. Discussed the possibility of instability and dislocations. I discussed the possibility of infection. The patient will be given perioperative antibiotics. I discussed possibilities of bleeding. I told her the bleeding will be reduced with the use of tranexamic acid. I discussed unlikely risk of blood vessel and nerve injury. I discussed the postoperative recovery with them. They understood the options. They are in agreement to proceed with a right reverse total shoulder. I warned her about the risk of falling. Fortunately reverse total shoulder is not dependent on rerepairing of the rotator cuff. With her Parkinson's I think there is really no chance of rotator cuff healing. Unfortunately with her Parkinson's I do not think she would be able to sit still for a CT scan a will not be able to preoperatively plan this. I will request operative reports from Dr. Cody to be certain there was no significant dysplasia or bone loss with his last procedure but this does not seem likely. 05/24/2024 Unspecified rotator cuff tear or rupture of right shoulder, not specified as traumatic (ICD-10 - M75.101) I discussed reverse total shoulder with them in detail. I think this would be the most reliable chance she will have to eliminate pain and improve function. I showed her samples of the components on models.. I made aware of the magnitude of the procedure. I made them aware that even with surgery she would have likely some continued pain and functional loss but overall I think they would be much improved. I discussed the risk including component failure and possible need for revision. Discussed the possibility of instability and dislocations. I discussed the possibility of infection. The patient will be given perioperative antibiotics. I discussed possibilities of bleeding. I told her the bleeding will be reduced with the use of tranexamic acid. I discussed unlikely risk of blood vessel and nerve injury. I discussed the postoperative recovery with them. They understood the options. They are in agreement to proceed with a right reverse total shoulder. I warned her about the risk of falling. Fortunately reverse total shoulder is not dependent on rerepairing of the rotator cuff. With her Parkinson's I think there is really no chance of rotator cuff healing. Unfortunately with her Parkinson's I do not think she would be able to sit still for a CT scan a will not be able to preoperatively plan this. I will request operative reports from Dr. Cody to be certain there was no significant dysplasia or bone loss with his last procedure but this does not seem likely. 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 She is gone undergone 2 previous arthroscopic repairs with failure. She is continuing to have debilitation and pain. I agree with Dr. Ferguson's assessment. She needs a right reverse total shoulder arthroplasty. I told her Dr. Ferguson is an excellent surgeon and that he can certainly do this surgery. We will recheck on a as needed basis. 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 She will continue with pendulum exercises and active range of motion of her elbow wrist and hand. I will have her begin outpatient physical therapy to work on range of motion and strengthening in 2 to 3 weeks. 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 I will see her back in 6 weeks. 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 She is stiff but her motion is not much better in the contralateral side and I do not think further improvements with therapy are really to be expected.I will release her to activities as tolerated. She states she will be seeing Dr. Cody for her knee next week 01/03/2025 Essential tremor (ICD-10 - G25.0) I discussed management of osteoarthritis with the patient. She had a lousy response to a left knee arthroscopy. She does not really want to consider that type of procedure. She has failed reasonable measures including medicines and injections. Ordinarily I would have expected longer improvement with the corticosteroid injections however she did at least have very good temporary improvement that would certainly seem to suggest that the knee is a source of her problems. They currently are not happy with her level of pain control or function I told them we certainly could continue with nonoperative measures including medications or injections. I told them the only reliable surgery option that I would have would be total knee replacement. After discussion of options they feel that knee replacement would be the best option to eliminate pain and bring them back to the functional level that they would be happy with. I discussed the operation with them on detail on models. They would be an excellent candidate for an ingrowth knee replacement. I told him this would certainly involve replacement of the femur and tibia. We will assess the patella at time of surgery and may or may not resurface the patella. I discussed risks with surgery including component failure and need for revision. I discussed risk of bleeding which is minimized with modern use of tranexamic acid. I discussed risk of deep venous thromboses and pulmonary emboli. They will be managed with sequential compressive dressings and aspirin. I discussed unlikely risk of blood vessel and nerve injury. I discussed the unlikely possibility of infection that could result multiple operations including loss of the knee replacement. I discussed the use of the robot and obtaining knee balance and hopefully increase the chances of good long-term results with the knee replacement. They expressed good understanding and agreed to the robotic right total knee arthroplasty. I will set them up at the time of their choosing. 01/03/2025 Primary osteoarthritis of right knee (ICD-10 - M17.11) I discussed management of osteoarthritis with the patient. She had a lousy response to a left knee arthroscopy. She does not really want to consider that type of procedure. She has failed reasonable measures including medicines and injections. Ordinarily I would have expected longer improvement with the corticosteroid injections however she did at least have very good temporary improvement that would certainly seem to suggest that the knee is a source of her problems. They currently are not happy with her level of pain control or function I told them we certainly could continue with nonoperative measures including medications or injections. I told them the only reliable surgery option that I would have would be total knee replacement. After discussion of options they feel that knee replacement would be the best option to eliminate pain and bring them back to the functional level that they would be happy with. I discussed the operation with them on detail on models. They would be an excellent candidate for an ingrowth knee replacement. I told him this would certainly involve replacement of the femur and tibia. We will assess the patella at time of surgery and may or may not resurface the patella. I discussed risks with surgery including component failure and need for revision. I discussed risk of bleeding which is minimized with modern use of tranexamic acid. I discussed risk of deep venous thromboses and pulmonary emboli. They will be managed with sequential compressive dressings and aspirin. I discussed unlikely risk of blood vessel and nerve injury. I discussed the unlikely possibility of infection that could result multiple operations including loss of the knee replacement. I discussed the use of the robot and obtaining knee balance and hopefully increase the chances of good long-term results with the knee replacement. They expressed good understanding and agreed to the robotic right total knee arthroplasty. I will set them up at the time of their choosing. 01/31/2025 Status post right knee replacement (ICD-10 - Z96.651) Her right knee looks benign.I have suggested that she continue with the immobilizer and she is up there is a fall would be catastrophic and she has a history. She will continue with home health. I will see her back in 2 weeks 10/29/2024 Primary osteoarthritis of right knee (ICD-10 - M17.11) This individual has primary degenerative arthritis of the right knee. I have gone over x-rays with her and her . She has a left total knee replacement that I did 5 years ago and this has worked well for her. With her advancing tremor though I would like to avoid surgery if possible and she would as well. After discussion we will proceed with a cortisone injection. Procedure: ChloraPrep was applied to the right knee. A mixture of 2 cc plain lidocaine +1 cc Depo-Medrol injected intra-articular without difficulty. Patient tolerates procedure well. 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 I will have her continue working with therapy. I told her she can progressively use the arm as tolerated and be more aggressive with range of motion. I will see her back in a month for a last check. She still has pain we will repeat x-rays. 07/08/2024 Traumatic complete tear of right rotator cuff, subsequent encounter (ICD-10 - S46.011D) 10/29/2024 Essential tremor (ICD-10 - G25.0) 07/08/2024 Falls (ICD-10 - R29.6) 01/03/2025 Pre-op exam (ICD-10 - Z01.818) I discussed management of osteoarthritis with the patient. She had a lousy response to a left knee arthroscopy. She does not really want to consider that type of procedure. She has failed reasonable measures including medicines and injections. Ordinarily I would have expected longer improvement with the corticosteroid injections however she did at least have very good temporary improvement that would certainly seem to suggest that the knee is a source of her problems. They currently are not happy with her level of pain control or function I told them we certainly could continue with nonoperative measures including medications or injections. I told them the only reliable surgery option that I would have would be total knee replacement. After discussion of options they feel that knee replacement would be the best option to eliminate pain and bring them back to the functional level that they would be happy with. I discussed the operation with them on detail on models. They would be an excellent candidate for an ingrowth knee replacement. I told him this would certainly involve replacement of the femur and tibia. We will assess the patella at time of surgery and may or may not resurface the patella. I discussed risks with surgery including component failure and need for revision. I discussed risk of bleeding which is minimized with modern use of tranexamic acid. I discussed risk of deep venous thromboses and pulmonary emboli. They will be managed with sequential compressive dressings and aspirin. I discussed unlikely risk of blood vessel and nerve injury. I discussed the unlikely possibility of infection that could result multiple operations including loss of the knee replacement. I discussed the use of the robot and obtaining knee balance and hopefully increase the chances of good long-term results with the knee replacement. They expressed good understanding and agreed to the robotic right total knee arthroplasty. I will set them up at the time of their choosing. Plan Of Treatment Pending Test Test Name Order Date Knee 4V 10/29/2024 Prothrombin Time 28007 01/18/2021 Prothrombin Time 72856 01/17/2022 Prothrombin Time 89218 02/11/2021 Prothrombin Time 99474 02/23/2022 ABOR 10310, 23905 02/23/2022 ABOR 20296, 93390 02/11/2021 ABORh 47517, 47861 01/17/2022 ABORh 02043, 53013 01/18/2021 Antibody Screen 17310 01/18/2021 Antibody Screen 87333 01/17/2022 Antibody Screen 76800 02/11/2021 Antibody Screen 40962 02/23/2022 Basic Metabolic Panel (BMP) 45692 2021 Basic Metabolic Panel (BMP) 79186 2021 Basic Metabolic Panel (BMP) 46493 2020 Basic Metabolic Panel (BMP) 23718 2021 Basic Metabolic Panel (BMP) 99017 2020 Basic Metabolic Panel (BMP) 89607 2020 CBC w\ Auto Diff 36058 01/18/2021 CBC w\ Auto Diff 95100 04/12/2022 CBC w\ Auto Diff 88715 02/11/2021 CBC w\ Auto Diff 36312 01/17/2022 CBC w\ Auto Diff 75040 02/23/2022 Partial Thromboplastin Time 94331 2021 Partial Thromboplastin Time 03597 2021 Partial Thromboplastin Time 65344 2020 Partial Thromboplastin Time 98915 2020 Sedimentation Rate 57037 04/12/2022 CBC Reflex Man Diff 10317, 80627 022 CBC Reflex Man Diff 29863, 81531 021 CRP 13223 04/12/2022 Chest PA/Lat-84276 01/18/2021 Chest PA/Lat-06806 01/17/2022 Chest PA/Lat-06420 02/11/2021 CT L-Spine w/o Contrast incl Recon-08461 05/13/2021 CT L-Spine w/o Contrast incl Recon-32023 04/12/2021 Lumbosacral Spine AP/Lat-39814 1 Lumbosacral Spine AP/Lat-38584 1 Lumbosacral Spine AP/Lat-80342 1 Lumbosacral Spine AP/Lat-89273 1 Lumbosacral Spine AP/Lat-60355 2 Lumbosacral Spine AP/Lat-47196 2 Electrocardiogram 12 Lead Tracing-15213 01/03/2025 Electrocardiogram 12 Lead Tracing-50685 05/24/2024 Electrocardiogram 12 Lead Tracing-46371 01/18/2021 Electrocardiogram 12 Lead Tracing-43558 01/17/2022 WBC Auto Diff--43839 02/15/2021 WBC Auto Diff--80036 03/02/2022 BB ABOR-96145,36015 02/11/2021 zzzFluoroscopy 03/02/2022 zzzFluoroscopy 02/15/2021 COVID 19 PCR--31404 02/11/2021 COVID 19 PCR--53663 01/18/2021 zzzMRI Outside CD 12/22/2020 zzzMRI Outside CD 12/22/2020 Next Appt Details Provider Name:Osman Mcgowan Marty , 03/14/2025 09:20:00 AM, [address] [facility] [place], [address], Insurance Providers Payer Name Payer Address Payer Phone Subscriber Number Group Number Insured Name Patient Relationship to Insured Coverage Start Date Coverage End Date [place] [address] [address] [place] [address] [id number] Levi partidaRakel Self - patient is the insured [employer] [address] [address] [place] [address] [id number] Levi partidaRakel Self - patient is the insured 2 [place] Medicare [address] [phone] [id number] Levi partida Rakel Self - patient is the insured 5 [employer] [address] [place] [address] [id number] Levi partidaRakel Self - patient is the insured [facility] [employer] [address] [place] [address] [phone] [id number] Plan F Levi partidaRakel Self - patient is the insured Medications Administered Medication Instructions Date of Administration Dosage Notes DEPO-Medrol 03/15/2024 1 mL DEPO-Medrol 04/19/2024 1 mL DEPO-Medrol 10/29/2024 1 mL Ketorolac Tromethamine 03/17/2022 15 mg nd c #[id number] Lidocaine 03/15/2024 2 mL Lidocaine 04/19/2024 2 mL Lidocaine 10/29/2024 2 mL Triamcinolone Acetonide 11/29/2024 32 mg Medical (General) History Medical History History ICD Code measles chicken pox arthritis bladder infections back trouble hemorrhoids anxiety cataracts fibromyalgia irritable bowel syndrome Parkinson's disease Rheumatoid arthritis Surgical History Surgery Date(Month/Year) left knee 2019 Right TSA 07/11/2024 left knee replacement Hysterectomy Esophageal surgery Cholecystectomy section Back surgery bilateral rotator cuff repair 2020 esophogeal surgery 1980 hysterectomy 1996 cholecystectomy 2000 section 1985 Hospitalization History Reason Date(Month/Year) ROLAN
--- OUTSIDE RECORDS SUMMARY | 2025-02-16 23:25 | XMS_ITS | Data Portability ---
Author Organization CHANDRAKANT Elian Carrington [facility] Address [address] [address] Care Team Providers Care Clerk Funeral Detail Name Role Phone NATHALIE DSOUZA Primary Care Provider DORI Real Neurologist Assessment Encounter Date Assessment Date Assessment LastModified by Organization Details LastModified Time 06/24/2024 06/24/2024 A Care Coordination Assessment form was filled out as part of this patient's office visit today. [email or web address] Not available 06/24/2024 17:26:54 11/11/2024 11/11/2024 Document scribed by Dre Clancy Photographic Laboratory Supervisor. I was present during interview and exam. I have reviewed and agree with above documentation. Dr. Nathalie Dsouza. [email or web address] Not available 11/11/2024 13:53:04 02/05/2025 02/05/2025 Document scribed by Dre Clancy Photographic Laboratory Supervisor. I was present during interview and exam. I have reviewed and agree with above documentation. Dr. Nathalie Dsouza. [email or web address] Not available 02/05/2025 12:27:04 Plan of Treatment Reminders Order Date Submit Date Provider Last Modified By Organization Details Last Modified Time Details Appointments None recorded. Lab hemoglobin A1C/hemoglo bin total, QN, blood 2024 025 [facility], [address], [facility], [place], [address], 13:34:05 urinalysis, dipstick 2024 025 [facility] ([facility]), [address] [place], [address], 5 13:07:53 culture, urine 2024 025 [place], [address] [facility] [address], [address] [place], [address], 5 19:16:45 Referral orthopedic surgeon referral 2024 025 [email or web address] 2 Reza Cody MD, [address] [place], [address], 5 15:07:09 Procedures None recorded. Surgeries None recorded. Imaging XR, knee, 3 view 2024 025 [facility] ([facility]), [address] [place], [address], 5 14:06:46 Medication Orders Zepbound 2.5 mg/0.5 mL subcutaneou s pen injector 2024 025 [email or web address] [facility], [address], [place], [address], 5 12:14:06 hydrocodone 5 mg-acetamin ophen 325 mg tablet 2024 025 [facility], [address], [place], [address], 5 12:39:10 nystatin 100,000 unit/gram topical cream 2024 025 [email or web address] 47 [facility], [address], [place], [address], 5 07:44:23 amoxicillin 875 mg-potassiu m clavulanate 125 mg tablet 2024 025 [facility] 15, [address], [place], [address], 5 05:01:15 prednisone 20 mg tablet 2024 025 [facility] 15, [address], [place], [address], 5 05:02:04 tizanidine 2 mg tablet 2024 025 [facility], [address], [place], [address], 5 13:21:37 amoxicillin 875 mg-potassiu m clavulanate 125 mg tablet 2024 025 [facility] 15, [address], [place], [address], 5 05:01:15 Patient TargetsNo targets recorded. Patient InstructionsNo instructions recorded. Reason for Referral Orthopedic Surgeon Referral for Tear of medial meniscus of knee Referring Physician: Sha Rhodes, Family Medicine, Encounter Date: 10/17/2024 Results Created Date Observation Date Name Description Value Unit Range Abnormal Flag Note LastModifiedBy Organization Detail LastModifiedTime 06/27/1906/29/2024 CULTU RE, URINE , ROUTI NE culture, urine, routine SEE NOTE abnormal CULTU RE, URINE , ROUTI NE Micro Numbe r: [id number] Test Statu s: Final Speci men Sourc e: Urine , clean catch Speci men Quali ty: Adequ ate Resul t: 10,00 0-49, 000 CFU/m L of Al tellez ----- ----- ----- - INT TYRON AMOX/ CLAVU LANAT E R >=32 AMP/S ULBAC RAMOS R >=32 CEFAZ RENZO R >=64 1 CEFTA ZIDIM E S <=1 CIPRO FLOXA LISANDRO S <=0.0 6 GENTA MICIN S <=1 LEVOF LOXAC IN S <=0.1 2 MEROP ENEM S <=0.2 5 NITRO FURAN TOIN R 128 PIP/T AZOBA CTAM S <=4 TRIME THOPR IM/CERVANTES LFA S <=20 S = Susce ptibl e I = Inter media te R = Resis tant NS = Not susce ptibl e SDD = Susce ptibl e Dose Depen dent * = Not Teste d NR = Not Repor luther NN = See Thera py Comme nts THERA PY COMME NTS Note 1: For uncom plica luther UTI cause d by E. coli, K. pneum oniae or P. mirab ilis: Cefaz renzo is susce ptibl e if TYRON <32 mcg/m L and predi cts susce ptibl e to the oral agent s cefac aislinn, cefdi alton, cefpo doxim e, cefpr ozil, cefur oxime , cepha lexin and lorac arbef . Not Available [facility] [address] [place], [address], 06/29/2024 19:16:45 06/27/19 25 06/27/2024 urina lysis , dipst ick Leukocytes Negati ve Not Available [facility] ([facility]) [address] [place] [address], [address], 06/27/2024 12:57:51 06/27/19 25 06/27/2024 urina lysis , dipst ick Nitrite negati ve Not Available [facility] ([facility]) [address] [place] [address], [address], 06/27/2024 12:57:51 06/27/19 25 06/27/2024 urina lysis , dipst ick Urobilinogen .[address] [facility] ([facility]) [address] [place], [address], 06/27/2024 12:57:51 06/27/19 25 06/27/2024 urina lysis , dipst ick Protein Trace Not Available [facility] ([facility]) [address] [place], [address], 06/27/2024 12:57:51 06/27/19 25 06/27/2024 urina lysis , dipst ick pH 6.0 Not Available [facility] ([facility]) [address] [place], [address], 06/27/2024 12:57:51 06/27/19 25 06/27/2024 urina lysis , dipst ick Blood Negati ve Not Available [facility] ([facility]) [address] [place], [address], 06/27/2024 12:57:51 06/27/19 25 06/27/2024 urina lysis , dipst ick Specific [place] 1.030 Not Available [facility] ( [facility]) [address] [place], [address], 06/27/2024 12:57:51 06/27/19 25 06/27/2024 urina lysis , dipst ick Ketone Small Not Available [facility] ([facility]) [address] [place], [address], 06/27/2024 12:57:51 06/27/19 25 06/27/2024 urina lysis , dipst ick Bilirubin Negati ve Not Available [facility] ([facility]) [address] [place], [address], 06/27/2024 12:57:51 06/27/19 25 06/27/2024 urina lysis , dipst ick Glucose Negati ve Not Available [facility] ([facility]) [address] [place], [address], 06/27/2024 12:57:51 06/27/19 25 06/27/2024 urina lysis , dipst ick Appearance Clear Not Available [facility] ([facility]) [address] [place], [address], 06/27/2024 12:57:51 06/27/19 25 06/27/2024 urina lysis , dipst ick Color Dark Yellow Not Available [facility] ([facility]) [address] [place], [address], 06/27/2024 12:57:51 02/06/20 25 02/05/2025 HBA1C hemaglobin A1C 5.9 4.2-6. 5 Not Available [facility] [address] [facility] [address], [place], [address], 02/05/2025 13:34:05 10/19/19 25 10/17/2024 XR, knee, 3 view No observ ation record ed. [email or web address] [facility] [address] [place], [address], 10/20/2024 11:35:29 Result Notes None recorded. Problems Name Problem SNOMED Code Status Onset Date Resolution Date Notes Provider Name and Address Organization Details Recorded Time Chronic back pain 770483484 Active 2021 [facility] 16:24:43 History of anxiety state 849991097 Active 2021 Anxiet y/Depr ession Jeanne cannon [facility], [facility] 4 16:24:39 Rheumatoid arthritis of left ankle 4856941456428 109 Active 2021 [facility] 4 16:24:35 Chest pain 13118438 Active 2022 Not Available [facility] 3 11:52:55 Parkinson' s disease 89654242 Active 2022 Not Available [facility] 3 11:52:55 Rheumatoid arthritis 60956213 Active 2022 Nathalie Dsouza, DO [address] [place] [address], [address] , [facility] 3 11:06:12 Generalize d anxiety disorder 49178886 Active 2022 Nathalie Dsouza, DO [address] [place] [address], [address] , [facility] 3 11:06:15 Hyperglyce missy 69326235 Active 2022 Nathalieruchi Dsouza, DO [address] [place] [address], [address] , [facility] 3 11:09:35 Morbid obesity 345065426 Active 2023 Nathalie Dsouza DO [address] [place] [address], [address] , [facility] 4 12:52:42 Obstructiv e sleep apnea syndrome 57049915 Active 2023 Nathalie Dsouza DO [address] [place] [address], [address] , [facility] 4 12:56:06 Moderate recurrent major depression 68570724 Active 2023 Nathalie Dsouza DO [address] [place] [address], [address] , [facility] 4 12:56:09 Dementia associated with Parkinson' s Disease 843407997 Active 2023 Nathalie Dsouza DO [address] [place] [address], [address] , [facility] 4 13:07:44 Right rotator cuff syndrome 9315878739518 09 Active 2023 Dre Julieth cannon, [facility] 4 13:42:28 Achilles tendinitis 83522258 Active 2023 Dre cannon, [facility] 4 13:54:23 Partial thickness rotator cuff tear 088537961 Active 2023 Dre cannon, [facility] 4 14:03:13 Rupture of left Achilles tendon 1310105585295 9100 Active 2023 Nathalie Dsouza DO [address] [place] [address], [address] , [facility] 4 18:30:46 Candidiasi s of skin 11763499 Active 2024 Nathalie Dsouza DO [address] [place] [address], [address] , [facility] 5 12:51:10 Spasm of back muscles 403341623 Active 2024 Sha Rhodes MD [address] [place] [address], [address] , [facility] 5 13:20:59 Dysuria 56046608 Active 2024 Sha Rhodes MD [address] [place] [address], [address] , [facility] 5 13:59:48 Tear of medial meniscus of knee 434495264 Active 2024 Sha Rhodes MD [address] [place] [address], [address] , [facility] 5 17:55:52 Pain of right knee joint 8554817175896 00 Active 2024 Sha Rhodes MD [address] [place] [address], [address] , [facility] 5 18:42:51 Problem Notes None recorded. Procedures Surgical History Date Name Laterality Status Provider Name and Address Organization Details Recorded Time procedure on shoulder completed Dawna Lawrence [facility] 08/09/2023 14:03:22 procedure on back completed [facility] 06/24/2024 17:02:02 cholecystectomy completed [facility], [facility] 06/24/2024 17:02:24 hysterectomy completed [facility], [facility] 06/24/2024 17:02:41 total knee replacement completed [facility] 06/24/2024 17:02:57 Imaging Results None recorded. Procedure Notes None recorded. Medical Equipment None Reported. Allergies Allergen ID Allergen Name Allergen Category Reaction Reaction Severity Criticality Documentation Date Start Date Code Code System Note Provider Name and Address Organization Details Recorded Time 48017 Macrobid medicatio n other Not available Not available 12/03/2022 73376 1 RxNorm React ion: mild Jeanne cannno [facility] 4 09:26:02 896 Substance with sulfonami de structure and antibacte rial mechanism of action (substanc e) medicatio n nausea mild low 08/08/2022 88915 8003 SNOMED Jeanne cannon [facility] 4 11:13:51 Medications Name Sig Start Date Stop Date Status Note LastModified by Organization Details LastModified Time fluoxetin e 40 mg capsule TAKE 1 CAPSULE BY MOUTH ONCE DAILY active Not Available Not Available No t Available amoxicill in 500 mg capsule TAKE 1 CAPSULE BY MOUTH EVERY 8 HOURS UNTIL GONE 10/01 /2025 completed Not Available Not Available Not Available prednison e 10 mg tablet TAKE 1 TABLET BY MOUTH ONCE DAILY FOR 5 DAYS NEEDED FOR JOINT PAIN FLARE 04/08 completed Not Available Not Available Not Available gabapenti n 600 mg tablet TAKE 1 TABLET BY MOUTH THREE TIMES DAILY active Not Available Not Available No t Available doxycycli ne hyclate 100 mg capsule Take 1 capsule twice a day by oral route for 7 days. 08/08 completed Not Available Not Available Not Available donepezil 5 mg tablet TAKE 1 TABLET BY MOUTH AT BEDTIME active Not Available Not Available No t Available tizanidin e 2 mg tablet TAKE 1 TABLET BY MOUTH AT BEDTIME NEEDED FOR 30 DAYS active Not Available Not Available No t Available fluconazo le 150 mg tablet Take 1 tablet every day by oral route for 3 days. 10/17 completed Not Available Not Available Not Available hydrocodo ne 5 mg-acetam inophen 325 mg tablet Take 1 tablet every 6 hours by oral route as needed. 2024 active Not Available Not Available Not Avai lable minocycli ne 100 mg capsule TAKE 1 CAPSULE BY MOUTH ONCE DAILY active Not Available Not Available No t Available prednison e 20 mg tablet Take 1 tablet every day by oral route in the morning for 7 days. 11/25 completed Not Available Not Available Not Available clonazepa m 0.5 mg tablet TAKE 1 TABLET BY MOUTH AT BEDTIME FOR 30 DAYS FOR SLEEP DISORDER active Not Available Not Available No t Available ropinirol e 3 mg tablet TAKE 1 TABLET BY MOUTH TWICE DAILY active Not Available Not Available No t Available carbidopa ER 50 mg-levodo pa 200 mg tablet,ex tended release TAKE 1 TABLET BY MOUTH ONCE DAILY AT BEDTIME active Not Available Not Available No t Available prednison e 5 mg tablet TAKE 1 TABLET BY MOUTH ONCE DAILY 04/08 completed Not Available Not Available Not Available leflunomi de 10 mg tablet TAKE 1 TABLET BY MOUTH ONCE DAILY 04/13 completed Not Available Not Available Not Available hydrocodo ne 10 mg-acetam inophen 325 mg tablet TAKE 1 TABLET BY MOUTH EVERY 6 HOURS FOR 15 DAYS NEEDED 08/08 completed Not Available Not Available Not Available omeprazol e 40 mg capsule,d elayed release TAKE 1 CAPSULE BY MOUTH IN THE MORNING FOR STOMACH active Not Available Not Available No t Available leflunomi de 20 mg tablet TAKE 1 TABLET BY MOUTH ONCE DAILY active Not Available Not Available No t Available amantadin e HCl 100 mg capsule TAKE 1 CAPSULE BY MOUTH THREE TIMES DAILY active Not Available Not Available No t Available entacapon e 200 mg tablet TAKE 1 TABLET BY MOUTH THREE TIMES DAILY 08/20 completed Not Available Not Available Not Available estradiol 1 mg tablet TAKE 1 TABLET BY MOUTH ONCE DAILY active Not Available Not Available No t Available cephalexi n 500 mg capsule TAKE 1 CAPSULE BY MOUTH FOUR TIMES DAILY FOR 6 DAYS 02/05 completed Not Available Not Available Not Available nystatin 100,000 unit/gram topical cream APPLY TO THE AFFECTED AREA(S) BY TOPICAL ROUTE 2 TIMES PER DAY 2024 active Not Available Not Available Not Avai lable venlafaxi ne 50 mg tablet TAKE 1 TABLET BY MOUTH ONCE DAILY 12/28 completed Not Available Not Available Not Available gabapenti n 300 mg capsule TAKE 1 CAPSULE BY MOUTH THREE TIMES DAILY 08/08 completed Not Available Not Available Not Available mupirocin 2 % topical ointment APPLY OINTMENT TOPICALL Y TO AFFECTED AREA TWICE DAILY active Not Available Not Available No t Available gabapenti n 100 mg capsule TAKE 1 CAPSULE BY MOUTH THREE TIMES DAILY FOR 30 DAYS 08/08 completed Not Available Not Available Not Available nystatin 100,000 unit/gram topical powder APPLY POWDER TOPICALL Y TO AFFECTED AREA TWICE DAILY NEEDED 11/11 completed Not Available Not Available Not Available diazepam 10 mg tablet TAKE 1 TABLET BY MOUTH ONCE DAILY NEEDED 30 MINUTES PRIOR TO MRI 08/08 completed Not Available Not Available Not Available hydroxych loroquine 200 mg tablet TAKE 1 TABLET BY MOUTH TWICE DAILY active Not Available Not Available No t Available methylpre dnisolone 4 mg tablets in a dose pack TAKE DIRECTED 02/05 completed Not Available Not Available Not Available carbidopa 25 mg-levodo pa 100 mg tablet TAKE 2 TABLETS BY MOUTH 4 TIMES DAILY AT 8AM, NOON, 2PM, AND 6PM active Not Available Not Available No t Available amoxicill in 875 mg-potass ium clavulana te 125 mg tablet Take 1 tablet twice a day by oral route for 10 days. 11/28 completed Not Available Not Available Not Available oxycodone 5 mg tablet TAKE 1 TABLET BY MOUTH EVERY 4 HOURS NEEDED FOR PAIN FOR 7 DAYS (MODERAT E 4-7) active Not Available Not Available No t Available neomycin 3.5 mg/g-poly myxin B 10,000 unit/g-de xameth 0.1 % eye oint 08/08 completed Not Available Not Available Not Available Denta 5000 Plus 1.1 % cream BRUSH AT BEDTIME, SPIT, LET SIT FOR 20 MINUTES BEFORE RINSING active Not Available Not Available No t Available fluoxetin e daily 12/13 completed DM/sd; Recorded 02/17/20 1:33PM by Maryam Dyer, Office Visit; Refill Quantity : 90; Capsule; Not Available Not Available Not Available carbidopa -levodopa three times daily 12/13 completed 82452; Recorded 02/17/20 22 1:33PM by Maryam Dyer (Nikky fraire through Nathalie Dsouza DO), Office Visit; Refill Quantity : 90; Tablet; Not Available Not Available Not Available hydroxyzi ne HCl daily 12/13 completed 0; Recorded 02/17/20 1:33PM by Maryam Dyer, Office Visit; Not Available Not Available Not Available venlafaxi ne daily 12/13 completed DM/sd; Recorded 02/17/20 4:17PM by Vilma [facility] Summary; Refill Quantity : 90; Tablet; Not Available Not Available Not Available nitrofura ntoin macrocrys alisson two times daily 12/13 completed 0; Recorded 02/17/20 22 1:33PM by Maryam Dyer, Office Visit; Not Available Not Available Not Available Lomotil up to 4 times a day as needed for diarrhea 12/13 completed 0; Recorded 02/17/20 22 1:33PM by Maryam Dyer, Office Visit; Not Available Not Available Not Available Carbidopa -Levodopa CR at bedtime 12/13 completed and a 50-200 at bedtime; [address]23; Recorded 10/06/19 11:59AM by Dre Clancy (i yee through Nathalie Dsouza DO), Office Visit; Refill Quantity : 30; Tablet; Not Available Not Available Not Available Amantadin e three times daily 12/13 completed 0; Recorded 02/17/20 22 1:33PM by Maryam Dyer, Office Visit; Not Available Not Available Not Available Premarin apply vaginall y once a day for 3 weeks then off 1 week, then restart 12/13 completed 0; Recorded 02/17/20 1:33PM by Maryam Dyer, Office Visit; Not Available Not Available Not Available rasagilin e 1 mg tablet TAKE 1 TABLET BY MOUTH ONCE DAILY active Not Available Not Available No t Available rasagilin e daily 12/13 completed 0; Recorded 02/17/20 1:33PM by Maryam Dyer, Office Visit; Not Available Not Available Not Available diclofena c 1 % topical gel APPLY 4 GRAMS TOPICALL Y TO AFFECTED AREA FOUR TIMES DAILY NEEDED 12/28 completed Not Available Not Available Not Available Probiotic 12/13 completed 0; Recorded 02/17/20 22 1:33PM by Maryam Dyer, Office Visit; Not Available Not Available Not Available naloxone 4 mg/actuat ion nasal spray Call 911. Administ er a single spray of NARCAN in one nostril. Repeat every 2-3 minutes as needed if no or minimal response . active Not Available Not Available No t Available Zepbound 2.5 mg/0.5 mL subcutane ous pen injector INJECT 2.5 MG SUBCUTAN EOUSLY ONCE WEEKLY active Not Available Not Available No t Available Vitals Date Recorded Body height Body mass index (BMI) Body weight Oxygen saturation Oxygen saturation in Arterial blood by Pulse oximetry Heart rate Respiratory rate Systolic And Diastolic Provider Name and Address Organization Details Last Updated DateTime 5 157.48 cm 41.6 kg/m2 745329. 57 g 95 % 95 % 102 /min 18 /min 122/64 mm[Hg] Fatoumata Espitia [facility] 5 17:08:58 Date Recorded Body height Body mass index (BMI) Body weight Oxygen saturation Oxygen saturation in Arterial blood by Pulse oximetry Heart rate Respiratory rate Body temperature Systolic And Diastolic Provider Name and Address Organization Details Last Updated DateTime 5 157.48 cm 41.5 kg/m2 607394. 47 g 96 % 96 % 104 /min 18 /min 98.2 [degF] 150/90 mm[Hg] Dawna Lawrence [facility] 5 13:02:02 Date Recorded Body height Body weight Oxygen saturation Oxygen saturation in Arterial blood by Pulse oximetry Heart rate Respiratory rate Body temperature Systolic And Diastolic Provider Name and Address Organization Details Last Updated DateTime 5 157.48 cm 775786. 25 g 96 % 96 % 102 /min 18 /min 98.2 [degF] 148/88 mm[Hg] Dawna Lawrence [facility] 5 17:49:45 Date Recorded Body height Body mass index (BMI) Body weight Oxygen saturation Oxygen saturation in Arterial blood by Pulse oximetry Heart rate Respiratory rate Body temperature Systolic And Diastolic Provider Name and Address Organization Details Last Updated DateTime 5 157.48 cm 40.8 kg/m2 096019. 8 g 95 % 95 % 104 /min 18 /min 98.8 [degF] 120/70 mm[Hg] Fatoumata Omkar [facility] 5 13:50:07 Date Recorded Body height Body mass index (BMI) Body weight Oxygen saturation Oxygen saturation in Arterial blood by Pulse oximetry Heart rate Respiratory rate Systolic And Diastolic Provider Name and Address Organization Details Last Updated DateTime 5 157.48 cm 40.4 kg/m2 635826. 91 g 96 % 96 % 104 /min 18 /min 110/60 mm[Hg] Fatoumata Bustamantee [facility] 5 12:04:51 Social History Question Answer Notes LastModified by Personally ion Details LastModified Time Tobacco Smoking Status Never Smoker [facility] 08/09/2023 14:02:20 What Was The Date Of Your Most Recent Tobacco Screening? 10/17/2024 [email or web address] Information not available 10/17/2024 Sex: Unknown Functional Status Question Answer Note LastModified by Organizat ion Details LastModified Time Do you use any illicit or recreational drugs? No [email or web address] Information not available 08/08/2022 Do you or have you ever used any other forms of tobacco or nicotine? No [email or web address] Information not available 08/08/2022 What is your level of alcohol consumption? None [email or web address] Information not available 08/08/2022 Mental Status None recorded. Family History Relationship Description Onset Age of this Age Resolved Age Notes LastModified by Organization Details LastModified Time Mother Heart disease [email or web address] Not available 2024 17:03:29 Mother Kidney disease [email or web address] Not available 2024 17:05:05 Father Malignant neoplasm of pancreas [email or web address] Not available 2024 17:04:47 Brother Malignant neoplasm of bone [email or web address] Not available 2024 17:03:51 Brother Malignant neoplasm of lung [email or web address] Not available 2024 17:04:02 Brother Fibrosis of lung [email or web address] Not available 2024 17:04:15 Sister Malignant neoplasm of oral cavity Not available 06/08 17:04:27 Medical History Condition Response Coronary Artery Disease N Other Y Gout N Kidney Stones N Blood Diseases N Hyperthyroidism N Breast Cancer N Blood Transfusion N Depression Y Hypothyroidism N Lung Disease N COPD N Developmental or Behavioral Disorders N Defects or Inherited Disease N Breast Problem N Difficulty Swallowing N Anesthesia Complications N Anxiety Disorder N Meniere's disease N Muscle, Joint, or Bone Problems Y Vision or Eye Problems N Arthritis Y Infertility N Polyps N Cancer N Stroke N Varicosities N Endometriosis N Bladder or Kidney Problems N High Cholesterol N Liver Disease N Fibromyalgia N Headaches N Kidney Disease N Allergies/Hayfever N Heart Problems N Ear or Hearing Problems N Hospitalizations N Thyroid Problems N GI Problems N ADD/ADHD N Skin Problems N Eating Disorder N Anemia N Constipation N Mental Illness N Ovarian Cancer N Diabetes Y Bedwetting N Seizures/Epilepsy N Tuberculosis N Eczema N Diverticulitis N Abuse/Domestic Violence N Asthma N Reflux/GERD N Hepatitis N Heart Disease N Pulmonary Embolism N Pre-Eclampsia N Hypertension N Chronic Ear Infections N Osteoporosis N Chicken Pox N Autism Spectrum Disorder (ASD) N Thrombophilias N Gynecological HistoryNo gynecological history recorded. Obstetrics History GPAL:G 0 P 0 0 0 0 Immunizations Vaccine Type Date Status Note Provider Nam e and Address Organization Details Recorded Time Influenza, split virus, trivalent, PF 5 completed Fatoumata Espitia null, [facility] 02/05/2025 16:17:32 Influenza, MDCK, quadrivalent, PF 1 [facility] 11:21:38 Influenza, high-dose, quadrivalent, PF 2 completed [facility] 08/24[facility]2023 11:21:38 pneumococcal polysaccharide PPV23 1 completed Fatoumata Espitia [facility] 08/24/2023 11:21:38 pneumococcal polysaccharide PPV23 5 completed Fatoumata Espitia [facility] 08/24/2023 11:21:38 Tdap 5 completed Fatoumata Espitia [facility] 08/24/2023 11:21:38 Pneumococcal conjugate PCV 13 8 completed Fatoumata Espitia [facility] 08/24/2023 11:21:38 Influenza, high-dose, trivalent, PF 8 completed Fatoumata Espitia [facility] 08/24/2023 11:21:38 Influenza, split virus, trivalent, PF 7 completed Fatoumata Espitia [facility] 08/24/2023 11:21:38 Influenza, high-dose, quadrivalent, PF 3 completed Fatoumatalilian [place] [facility] 08/24/2023 11:21:52 Pneumococcal conjugate PCV20, polysaccharide FXW145 conjugate, adjuvant, PF 3 completed MARYAM ALLEGRAGARO cannon, [facility] 04/13/2023 16:21:59 Influenza, split virus, trivalent, PF 4 completed Fatoumata Espitia davis, [facility] 01/31/2024 18:32:10 Past Encounters Encounter ID Performer Location Encounter Start Date Encounter Closed Date Diagnosis/Indication Diagnosis SNOMED-CT Code Diagnosis ICD10 Code Diagnosis IMO Codes Diagnosis Note [id number] Nathalie Dsouza DO [facility] ([facility]) [address] [place] [phone] 5 08/08/2022 15:18:24 08/09/2022 18:21:36 Rheumatoid arthritis 05044120 M06.9 continue with specialist . no change in leflunomid e or hydroxychl oroquine. 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 will check renal and liver fxn. Parkinson's disease 4904 9000 G20 conitnue carbidopa/ levodopa as well as clonazepam and ropinirole . continue care with neurology in [facility]. Morbid obesity 950672244 E66.01 I counseled pt on obesity. We discussed risks and ways to loose weight. Pt will work on diet, exercise. will plan on wellnesss visit in 4 [facility]. fasting labs prior. Generalize d anxiety disorder 94539602 F41.1 stable. continue prozac an effexor Moderate r ecurrent major depression 22199664 F33.1 stable. continue prozac and effexor Dementia 53869479 F03.90 no signfician t worsening, continue donepezil and amantadine [id number] Nathalie Dsouza DO [facility] ([facility]) [address] [place] [address] 09/19/2022 15:24:23 09/19/2022 18:32:39 Chest pain 60807008 R07.9 recurrent with cardiac features and strong FHX AMI. will get EKG today and proceed with cardiac stress test. Parkinson's disease 4904 9000 G20 continue carbidopa/ levodopa as well as clonazepam and ropinirole . continue care with neurology in [facility]. [id number] Nathalie Dsouza DO [facility] ([facility]) [address] [place] [id number] 5 12/13/2022 10:48:22 12/13/2022 19:25:41 Chronic back pain 727897922 G89.29 Parkinson's disease 4904 9000 G20 continue carbidopa/ levodopa as well as clonazepam and ropinirole . continue care with neurology in [facility]. History of anxiety state 868849744 F41.9 stable. continue meds. Displaceme nt of lumbar intervertebral disc without myelopathy 64837235 M51.26 continue hydrocodon e. not a surgical candidate. Pain of ri ght shoulder joint 9167304789 2587644 M25.511 chronic, worsening, severe. keep f/u with Dr. Cody. continue norco, tylenol. [id number] Nathalie Dsouza DO [facility] ([facility]) [address] [place] [phone] 5 04/13/2023 10:35:48 04/13/2023 12:56:23 Parkinson's disease 76180045 G20.A1 stable. continue care with neurology. no change in meds. Generalize d anxiety disorder 37971394 F41.1 stable. continue prozac an effexor Chronic back pain 435124 002 G89.29 continue norco. counseled on weight, exericse Rheumatoid arthritis 698 07103 M06.9 continue with specialist . no change in leflunomid e or hydroxychl oroquine. continue care with Rheumatolo gy Hyperglycemia 15352869 R 73.9 counseled on diet, repeat labs. Active or passive immunization 676045407 Z23 I counseled pt on vaccinatio ns. they are willing to accept the Prevnar 20 vaccinatio n. given today, counseled on expectatio ns. [id number] PARRIS STACY PA-C [facility] ([facility]) [address] [place] [address] [phone] 5 06/02/2023 10:22:59 06/02/2023 14:16:09 Acute bronchitis 60926761 J20.9 [id number] PEG ENRIQUEZ [facility] ([facility]) [address] [place] [phone] 5 06/30/2023 10:59:42 06/30/2023 11:40:28 Contact dermatitis 54917328 L25.9 Will start on prednisone for rash. may use topicals for itching such as benadryl cream or calamine. return if rash worsens or other symptoms develop. [id number] CODY DONNELLY [facility] ([facility]) [address] [place] [id number] 5 08/09/2023 13:30:09 08/09/2023 15:06:06 Pain of right hand 6696589778 20790 M79.641 Sprain of right wrist 11 60990255 1811912 S63.501A Reassured with negative x-ray. Will send x-ray for over read. Patient given velcro wrist brace in clinic today. Should wear brace for 1 week. LYRIC fenton recommende d. Can take tylenol as needed for pain. If worsening pain or no improvemen t in 1-2 weeks, should be re-evaluat ed by PCP. Accidental fall 61308989 2 W19.XXXA Abrasion of face 4762599 08 S00.81XA Skin lesion was cleaned sterily in clinic today. Patient encouraged to use triple antibiotic ointment on abrasions TID until healed. Closed injury of head 45 16868629 06 S09.90XA No evidence of concussion today, however, discussed concussion protocols with patient and her . If any confusion, excessive sleep, nausea, vomiting, or severe dizziness occurs, need to go to ED for CT scan. Patient and family are agreeable to plan of care. Has a follow up with PCP in 2 weeks and recommend keeping this follow up. [id number] Nathalie Dsouza DO [facility] ([facility]) [address] [place] [address] [id number] 5 08/21/2023 11:32:02 08/21/2023 15:15:03 Parkinson's disease 50396237 G20.A1 G20.B2 stable. Under the care or Neurology[facility] [place]10. slowly progressin g. continue care with neurology. no change in meds. Generalize d anxiety disorder 96598768 F41.1 stable. continue prozac an effexor Hyperglycemia 39873093 R 73.9 c last hemoglobin A1c was 6.2 in April 2023. Counseled on diet, repeat labs. Rheumatoid arthritis 698 86439 M06.9 continue with specialist . no change in leflunomid e or hydroxychl oroquine. continue care with Rheumatolo gy Moderate r ecurrent major depression 36899130 F33.1 stable. continue prozac and effexor Morbid obesity 054793835 E66.01 Z68.41 I counseled pt on obesity. We discussed risks and ways to loose weight. Pt will work on diet, exercise. Obstructiv e sleep apnea syndrome 41445146 G47.33 Pt is compliant with CPAP, wearing more than 6hrs/night and missing less than 1 night/90da ys. I counseled on CHASE, CPAPs, and sleep hygeine. Dementia a ssociated with Parkinson's Disease 551889971 F02.80 mild, stable. continue with Dr. Clemente . [id number] Nathalie Dsouza DO [facility] ([facility]) [address] [place] [address] [id number] 5 09/13/2023 10:57:36 09/13/2023 12:59:36 Parkinson's disease 87980014 G20.A1 G20.B2 stable. Under the care or Neurology, Dr. Blas in [facility] [place] 08/10. slowly progressin g. continue care with neurology. no change in meds.Encou raged to use walker rather than cane. Generalize d anxiety disorder 64157573 F41.1 stable. continue prozac and effexor Hyperglycemia 26274779 R 73.9 09/13/23- discussed recent A1c, improved to 5.9. Counseled on diet, activity. Rheumatoid arthritis 698 87888 M06.9 continue with specialist . no change in leflunomid e or hydroxychl oroquine. continue care with Rheumatolo gy Moderate r ecurrent major depression 78560947 F33.1 stable. continue prozac and effexor [id number] PEG ENRIQUEZ [facility] ([facility]) [address] [place] [address] [id number] 5 11/28/2023 10:05:47 11/28/2023 12:06:11 Candidiasis of skin 48265647 B37.2 Discussed use of topical nystatin, promote dryness to the skin. [id number] Nathalie Dsouza DO [facility] ([facility]) [address] [place] [address] 01/31/2024 11:44:27 01/31/2024 17:14:24 Parkinson's disease 42974778 G20.A1 G20.B2 stable. Under the care or Neurology, Dr. Blas in [facility]. Stage 4/5. slowly progressin g. continue care with neurology. no change in meds.Encou raged to use walker rather than cane. Generalize d anxiety disorder 92111003 F41.1 stable. continue prozac and effexor Hyperglycemia 15552099 R 73.9 09/13/23- discussed recent A1c, improved to 5.9. Counseled on diet, activity. Rheumatoid arthritis 698 13557 M06.9 continue with specialist . no change in leflunomid e or hydroxychl oroquine. continue care with Rheumatolo gy Moderate r ecurrent major depression 20027478 F33.1 stable. continue prozac and effexor Active or passive immunization 459420152 Z23 I counseled pt on vaccinatio ns. they are willing to accept the Prevnar 20 vaccinatio n. given today, counseled on expectatio ns. Displaceme nt of lumbar intervertebral disc without myelopathy 41583707 M51.26 continue hydrocodon e. not a surgical candidate. [id number] Nathalie Dsouza DO [facility] ([facility]) [address] [place] [phone] 5 03/26/2024 12:37:33 04/08/2024 10:01:43 Partial thickness rotator cuff tear 017501560 M75.[address] Cody 03/2024, per pt she has too much Arthritis, is not a candidate for sx. Achilles tendinitis 1165 4001 M76.62 03/26/24- LLE: counseled avoid flat shoes, use arch support, rest, OTC Voltaren gel. If not improving will consider boot or Cortisone shot, however we want to avoid a boot if possible.C ounseled on diagnosis, treatment options including medication s and possible side effects. Sebaceous cyst of skin 900611477 L72.3 03/26/24- left axilla, sebaceous cyst vs lipoma, counseled benign, may become red/ irritated, drain, RTC if this occurs, will consider abx or excision. Counseled on diagnosis, treatment options including medication s and possible side effects. Rheumatoid arthritis 698 22263 M06.9 03/26/24- pt not pleased with care with Dr. Hernandez, has read Hydrochlor oquine and Leflunomid e are not recommened ed for Parkinson' s pt's. She requests referral elsewhere, prefers [facility]. [id number] Nathalie Dsouza DO [facility] ([facility]) [address] [place] [phone] 04/08/2024 14:46:53 04/10/2024 09:28:20 Achilles tendinitis 97855382 M76.62 04/08/24: now concerned for partial rupture with fall after last visit and increased pain, swelling, weakness. Placed in walking boot after DVT US negative. will send to ortho. counseled1 05/26/23- LLE: counseled avoid flat shoes, use arch support, rest, OTC Voltaren gel. If not improving will consider boot or Cortisone shot, however we want to avoid a boot if possible.C ounseled on diagnosis, treatment options including medication s and possible side effects. Pain in le ft lower limb 903872014 M79.605 with swelling and warmth. stat US negative for DVT in office. concern for achilles rupture. partial vs complete. we have placed pt in walking boot. she is to wear 24 hrs/day except for bath/showe r. She needs to use wheelchair or walker while in boot.will refer to ortho. Edema of l eft lower leg 996112816 R60.0 Rupture of left Achilles tendon 6139451366 1606967 S86.012D 04/08/24: now concerned for partial rupture with fall after last visit and increased pain, swelling, weakness. Placed in walking boot after DVT US negative. will send to ortho. counseled [id number] Nathalie Dsouza DO [facility] ([facility]) [address] [place] [address] 04/08/2024 16:51:04 04/10/2024 09:29:33 [id number] Nathalie DsouzaDO [facility] ([facility]) [address] [place] [address] 06/17/2024 11:49:43 06/17/2024 12:55:44 Candidiasis of skin 35777982 B37.2 b/l axilla and right inframamma ry fold. not resolving with cream. will give short oral course and add prn powder. counseled on keeping dry and clean. Return to office with no improvemen t or any problems. Go to ER with severe worsening or severe problems. [id number] Nathalie DsouzaDO [facility] ([facility]) [address] [place] [address] 06/24/2024 16:35:10 06/28/2024 10:24:34 Acute lymphadenitis 17507597 L04.9 left axilla. on candidiasi s tx, will start oral abx. monitor for worsneing. pt to update her surgeon at [facility] with upcoming surgery scheduled. Return to office with no improvemen t or any problems. Go to ER with severe worsening or severe problems. Rheumatoid arthritis 698 35454 M06.9 03/26/24- pt not pleased with care with Dr. Hernandez, has read Hydrochlor oquine and Leflunomid e are not recommened ed for Parkinson' s pt's. She requests referral elsewhere, prefers [facility]. Parkinson's disease 7771 9000 G20.B2 stable. Under the care or Neurology, Dr. Blas in [facility] [place] Stage 4/5. slowly progressin g. continue care with neurology. no change in meds.Encou raged to use walker rather than cane. Dementia a ssociated with Parkinson's Disease 490526789 F02.80 mild, stable. continue with Dr. Clemente . Moderate r ecurrent major depression 78316543 F33.1 stable. continue prozac and effexor Obstructiv e sleep apnea syndrome 80741578 G47.33 Pt is compliant with CPAP, wearing more than 6hrs/night and missing less than 1 night/90da ys. I counseled on CHASE, CPAPs, and sleep hygeine. Generalize d anxiety disorder 06944569 F41.1 stable. continue prozac and effexor Morbid obesity 517182260 E66.01 Z68.41 I counseled pt on obesity. We discussed risks and ways to loose weight. Pt will work on diet, exercise. Chronic back pain 377622 002 G89.29 continue norco. counseled on weight, exercise Candidiasis of skin 4988 3006 B37.2 mildly improved. now with likely 2ndary bacterial lymphadeni tis. will start abx, continue with topical fungal tx. Return to office with no improvemen t or any problems. Go to ER with severe worsening or severe problems. [id number] Sha Rhodes MD [facility] ([facility]) [address] [place] [id number] 5 06/27/2024 12:53:47 06/27/2024 14:05:32 Dysuria 86032139 R30.0 UA was consistent with concentrat ed urine without any significan t signs of infection or blood. Spasm of back muscles 20 0444942 M62.830 Pain is likely related back spasms from a fall last night. Exam not characteri stic of kidney stone or kidney issue. Nigel no lifting, bending, or twisting. Utilize warm moist heat and topicals as needed. Will prescribe a muscle relaxer to use in addition to her pain medication . Follow-up with PCP if symptoms do not improve. [id number] Sha Rhodes MD [facility] ([facility]) [address] [place] [phone] 5 10/17/2024 17:29:01 10/18/2024 11:03:06 Pain of right knee joint 5781544933 70670 M25.561 897357 X-rays of the knee were obtained and reviewed by me. No significan t abnormalit y was noted. Some mild degenerati ve changes noted the medial compartmen t as well as around the patella. Tear of me dial meniscus of knee 094311730 S83.241A 83038464 Likely tear of the meniscus based on history and exam. Patient request referral to Dr. Cody. [id number] Nathalie Dsouza DO [facility] ([facility]) [address] [place] [address] 11/11/2024 13:38:54 11/19/2024 08:55:43 Acute cellulitis 2233235848 L03.90 2847112636 Augmentin, Prednisone , counseled. Candidiasis of skin 4988 3006 B37.2 mildly improved. now with likely 2ndary bacterial lymphadeni tis. will start abx, continue with topical fungal tx. Return to office with no improvemen t or any problems. Go to ER with severe worsening or severe problems. [id number] Nathalie Dsouza DO [facility] ([facility]) [address] [place] [address] 02/05/2025 11:14:30 02/06/2025 12:25:52 Displacement of lumbar intervertebral disc without myelopathy 73760344 M51.26 continue hydrocodon e. not a surgical candidate. Administra tion of influenza vaccine 71123385 Z23 Update Fluvax. Obstructiv e sleep apnea syndrome 23318044 G47.33 Pt with moderate sleep apnea, tolerating CPAP well, still struggles with symptoms of sleep apnea and worsening obesity, BMI currently 40.4. Will start Zepbound wkly. Counseled on diagnosis, treatment options including medication s and possible side effects. Pt is compliant with CPAP, wearing more than 6hrs/night and missing less than 1 night/90da ys. I counseled on CHASE, CPAPs, and sleep hygeine. Morbid obesity 956197309 E66.01 Z68.41 I counseled pt on obesity. We discussed risks and ways to loose weight. Pt will work on diet, exercise. Hyperglycemia 68167447 R 73.9 02/05/25: A1c today.- discussed recent A1c, improved to 5.9. Counseled on diet, activity. Health Concerns Section Related Observation LastModified by Organization Detai ls LastModified Time None Recorded Concern Status LastModified by Organization Details LastModified Time None Recorded Advance Directives Directive None Recorded Payers Insurance Date Sequence Insurance Name Policy Number Policy Bojorquez Covered Member ID Bjoorquez Member ID Guarantor Name 02/02/2025 [place] - [facility] (MEDICARE) Rakel Anderson [id number] Rakel Narayanjono 02/05/2025 2 [employer] (MEDICARE SUPPLEMENT) Rakel Narayanjono [id number] Rakel Morales Moniquesolajono 08/08/2022 2 [id number] (MEDICARE SUPPLEMENT) Rakel Narayanjono [id number] Rakel Morales Moniquesolajono 02/02/2025 1 [place] [employer] Rakel Narayanjono [id number] Rakel Anderson Notes Date Note Type Note Provider Name and Address Organization Details Recorded Time 06/24/2024 text/html ROS as noted in the HPI Pt presents for acute illness, she has a skin lump under her left armshe states that it has grown 2 inches in 3 daysshe states it is tender to touch and itchesno fevers ro chlls.arm pits with improving rash, finished 3 days of diflucan oral, remains on topical tx. she has surgery scheduled on 07/04/24 in [facility] for right shoulder replacement, with Dr. Marty Dsouza DO [address] [place] [address], [phone], [facility] 06/24/2024 17:30:49 06/27/2024 text/html Lower Urinary Tr act Symptoms (LUTS)Reported by DemarcoROS as noted in the HPI walk in patientpatient is here toady for lower right side back pain after a fall from yesterday, patient went to the ER and had xrays that was normal. Patient said then this morning her right lower side of her back started hurting again when she urinating and it has not stopped. Patient denies any burning with urination or blood in her urine. Sha Rhodes MD [address] [place] [address], [phone], [facility] 06/27/2024 14:00:06 10/17/2024 text/html Joint PainReport ed by Delfino as noted in the HPI walk in patientpatient is here today for right knee pain that got worse when trying to get into her truck and felt her right knee pop. Patient did this today Sha Rhodes MD [address] [place] [address], [phone], [facility] [place] 10/17/2024 18:43:05 11/11/2024 text/html ROS as noted in the HPI Pt presents for left eye problem She c/o tingling and itching at times. She admits that this was present 2 weeks ago and resolved but has returned now occurred Eye irritation, swelling, itching, double vision.No known bite/ scratch. Also with n/v. Requesting refill on Nystatin cream. Nathalie Dsouza DO [address] [place] [address], [phone], [facility] [place]. 11/18/2024 22:15:35 02/05/2025 text/html ROS as noted in the HPI Pt presents for recheck after right knee replacement. She had right knee replacement on 01/16/25 at [facility] with Dr. Ferguson and she was d/c'd the following day. When she got home she had a fall in her bedroom and had to go back to the hospital.She thinks her toe caught on the carpet and her walker rollator slid away from her so she fell landing against the wardrobe She ripped her stitches and they admitted and had to do surgery again with Dr. Aquino d/t being worried about infection. She was then d/c'd home the following Monday She is feeling much better today and rates her pain at 1/10 She has an area of redness at incision that she was concerned with and she sent pic to Dr. Ferguson and he felt it was ok but wants checked here today - Area is red and tender to the touch. Pt denies fever, swelling, or purulent drainage. Requesting Fluvax. Pt interested in GLP1.Pt with [facility], last had sleep study with [facility]. Nathalie Dsouza DO [address] [place] [address], [phone], [facility], Jagdeep 02/05/2025 12:38:33 OBGyn Episode No OBEpisode recorded.
--- NOTE | 2025-02-16 23:41 | CTR_ITS ---
PROCEDURE INFORMATION: Exam: CT Head Without Contrast Exam date and time: 02/17/2025 12:04 AM Age: 74 years old Clinical indication: Altered mental status/memory loss; PT arrives pov with complaint of AMS since Monday. pt has tremors/tics and is unable to hold still for scans. Coban wrap for head and chin strap used to attempt good images. Scanned twice to attempt better images without motion TECHNIQUE: Imaging protocol: Computed tomography of the head without contrast. Radiation optimization: All CT scans at this facility use at least one of these dose optimization techniques: automated exposure control; mA and/or kV adjustment per patient size (includes targeted exams where dose is matched to clinical indication); or iterative reconstruction. COMPARISON: No relevant prior studies available. RADIATION DOSE METRICS: Total DLP (mGy-cm): 1945.69 FINDINGS: Brain: Chronic small-vessel ischemic change. Cerebral ventricles: Probable mild involutional changes of the ventricles and sulci. Paranasal sinuses: Visualized sinuses are unremarkable. No fluid levels. Mastoid air cells: Visualized mastoid air cells are well aerated. Bones: Unremarkable. No acute fracture. Soft tissues: Unremarkable. Other findings: Severely limited exam due to significant motion artifact. CT/CT head wo con* [id number] IMPRESSION: No acute intracranial abnormality.
--- NOTE | 2025-02-16 23:41 | ECG_ITS ---
[facility] Test Date: 2025-02-17 Pat Name: Rakel Anderson Department: Room: Gender: Female Outpatient Psychiatrist: : 1950 Requested By: Stanley Jones Order Number: [id number] Gregg MD: Neal Patel M.D. Measurements Intervals [place] Rate: 104 P: 51 LA: 195 QRS: 1 QRSD: 97 T: 57 QT: 360 QTc: 475 Interpretive Statements SINUS TACHYCARDIA LOW QRS VOLTAGE IN PRECORDIAL LEADS [QRS DEFLECTION < 1.0 mV IN CHEST LEADS] NONSPECIFIC ST & T-WAVE ABNORMALITY ABNORMAL RHYTHM ECG Compared to ECG 10/07/2017 12:53:24 Low QRS voltage now present Electronically Signed On 02-19-2025 21:49:45 CDT by Neal Patel M.D. [email or web address]
--- NOTE | 2025-02-16 23:41 | XRR_ITS ---
PROCEDURE INFORMATION: Exam: XR Chest Exam date and time: 02/16/2025 11:48 PM Age: 74 years old Clinical indication: Other: Altered mental status; Additional info: AMS TECHNIQUE: Imaging protocol: Radiologic exam of the chest. Views: 1 view. COMPARISON: CR XR chest 2V* [id number] 07/08/2024 12:24 PM FINDINGS: Lungs: Unremarkable. No consolidation. Pleural spaces: Unremarkable. No pleural effusion. No pneumothorax. Heart/Mediastinum: Unremarkable. No cardiomegaly. Bones/joints: Right shoulder prosthesis. Single-view. XR/XR chest 1V portable [id number] IMPRESSION: No definite acute infiltrate or effusion.
--- NOTE | 2025-02-16 23:43 | W.ED.AMS ---
HPI - Altered Mental Status General: Chief Complaint: Altered Mental Status Stated Complaint: Confusion\AMS Time Seen by Provider: 02/16/25 23:15 History of Present Illness: Patient is a 74-year-old female with history of Parkinson's disease who presents with acute mental status change. Per family report, patient underwent right knee surgery approximately 4 weeks ago, followed by a complication where she broke her stitches and required reoperation the following day. Patient reportedly did well initially post-surgery and was even able to go on a boat outing one week ago. However, family notes significant mental status decline beginning Monday, with patient found on the back deck without her walker despite instructions to use assistive devices at all times. Mental status deterioration continued through the weekend with patient described as having poor attention span, inability to follow some commands, and inability to reason through situations. This morning at 6 AM, patient got out of her power recliner (where she typically sleeps) without putting her foot down properly, resulting in a fall. Patient has reportedly been falling frequently without injury. Family describes patient as increasingly argumentative since Monday noon, with restlessness, repeatedly attempting to get up without purpose, and inability to recall recent events. Patient is unable to remember activities from earlier today or what she had for dinner, though could recall having Irish toast and boyle for breakfast. Family reports patient's Parkinson's disease has been progressing with medications becoming less effective at controlling symptoms. They also note that patient has not been the same cognitively since receiving anesthesia twice in close succession for her knee surgeries. Patient complains of headache and neck pain when questioned. Related Data Home Medications ?Medication ?Instructions ?Recorded ?Confirmed clonazepam 0.5 mg tablet 0.5 mg PO DAILY 08/13/19 11/13/23 hydrocodone 5 mg-acetaminophen 325 1 tab PO BID PRN 08/13/19 11/13/23 mg tablet omeprazole 40 mg capsule,delayed 40 mg PO DAILY 08/13/19 11/13/23 release rasagiline 1 mg tablet (Azilect) 1 mg PO DAILY 08/13/19 11/13/23 conjugated estrogens 0.625 mg/gram 0.625 mg vaginal DAILY PRN 08/14/19 11/13/23 vaginal cream (Premarin) ropinirole 3 mg tablet (Requip) 3 mg PO BID 08/14/19 11/13/23 amantadine HCl 100 mg capsule 100 mg PO BID 09/28/21 11/13/23 fluoxetine 40 mg capsule 40 mg PO DAILY 09/28/21 11/13/23 venlafaxine 50 mg tablet 50 mg PO DAILY 09/28/21 11/13/23 carbidopa ER 50 mg-levodopa 200 mg 1 tab PO .HS 06/15/22 11/13/23 tablet,extended release gabapentin 600 mg tablet 600 mg PO TID 06/15/22 11/13/23 lactobacillus combination no.9 4 4,000 mmu cells PO DAILY 06/15/22 11/13/23 billion cell capsule (Adult 50 Plus Probiotic) carbidopa 25 mg-levodopa 100 mg 2 tab PO QID 11/13/23 11/13/23 tablet (Sinemet) Previous Rx's ?Medication ?Instructions ?Recorded solifenacin 10 mg tablet (Vesicare) 10 mg PO DAILY #30 tabs 03/30/20 diclofenac sodium 1 % topical gel 4 g topical QID #100 grams 09/14/22 hydroxychloroquine 200 mg tablet See Rx Instructions .Route 11/13/23 .COMPLEX #180 tabs leflunomide 20 mg tablet 20 mg PO DAILY #90 tabs 11/13/23 prednisone 5 mg tablet See Rx Instructions PO .COMPLEX 11/13/23 #90 tabs prednisone 10 mg tablet See Rx Instructions PO .COMPLEX 01/10/24 PRN joint pain #30 tabs Allergies Allergy/AdvReac Type Severity Reaction Status Date / Time methotrexate AdvReac Severe diarrhea Verified 11/13/23 10:50 Sulfa (Sulfonamide AdvReac Mild nausea Verified 11/13/23 10:50 Antibiotics) PFS ED PFSH: Medical History Piriformis syndrome of left side Osteoarthritis, generalized Seronegative rheumatoid arthritis of both hands Mixed stress and urge urinary incontinence History of calcium pyrophosphate deposition disease (CPPD) Inflammatory arthritis High risk medication use Immunization counseling Osteoarthritis Recurrent UTI Surgical History History of History of hysterectomy H/O arthroscopy of left knee History of esophageal surgery History of cholecystectomy History of tubal ligation Hx of repair of left rotator cuff History of left knee replacement Family History Father , at age 69 Cancer pancreatic cancer Emphysema lung Mother , at age 57 Enlarged heart Other Diabetes Family history of premature coronary artery disease Heart disease Hypertension Systemic lupus erythematosus (SLE) in adult Denies family history of Chronic kidney disease (CKD) Social History Smoking and tobacco/nicotine status: never used tobacco/nicotine Alcohol intake: never Substance/Drug Use: unknown Adopted: No Caregiver/support person: No Lives independently: No Household members: spouse Marital status: Current occupational status: retired Current gender identity: Female Physical Exam Const: COMMON NORMALS: alert EXAM LIMITATIONS: altered mental status GENERAL APPEARANCE: cooperative, well kempt and ill appearing (mildly) ORIENTATION/CONSCIOUSNESS: Yes awake, Yes oriented to person, Yes oriented to place and Yes confused; not oriented to time HENMT: COMMON NORMALS: normocephalic, atraumatic, external ears normal and Normal external nose present HEAD & SCALP: normocephalic and atraumatic FACE & SINUS: face symmetric NOSE: Normal external nose present EXTERNAL EAR: Yes external ears normal Eye: COMMON NORMALS: EOMs intact bilaterally and conjunctivae normal CONJUNCTIVA: Yes conjunctivae normal Chest: CHEST: Yes Symmetrical chest wall rise Resp: COMMON NORMALS: normal respiratory effort and clear to auscultation bilaterally AUSCULTATION: clear to auscultation bilaterally Cardio: COMMON NORMALS: regular rhythm RATE: tachycardic RHYTHM: regular rhythm GI: COMMON NORMALS: Soft to palpation INSPECTION: Yes normal to inspection PALPATION: Yes Soft to palpation Extremity: NARRATIVE EXTREMITY EXAM: Exam of the right lower extremity reveals healed incision of total knee arthroplasty. There is no opening, no drainage. There is mild redness, mild warmth. No knee joint effusion. Neuro: SENSORIUM/ORIENTATION: Yes alert, Yes oriented to person, Yes oriented to place and No oriented to time Psych: APPEARANCE: Yes well kempt Skin: NARRATIVE SKIN EXAM: Vaginal and intertriginous ronn rash. Slight redness and warmth to the anterior superior right knee. No knee joint effusion. Course Vital Signs: Vital signs: Vital Signs Temperature 98.3 F 02/16/25 23:17 Pulse Rate 93 02/17/25 02:37 Respiratory Rate 16 02/16/25 23:17 Blood Pressure 113/90 02/17/25 02:37 Pulse Oximetry 98 02/17/25 02:37 Oxygen Delivery Me thod Room Air 02/16/25 23:17 MDM - Altered Mental Status Medical Decision Making Vital signs have been stable here. She is afebrile. She is altered. Altered level of consciousness is somewhat improved after fluid bolus here. White blood cell count is 14. No left shift. CRP is mildly elevated. Bicarbonate is 21. Other BMP parameters are normal. Her lactic acid is 2.0. Her CK is elevated at 1106. Urine drug screen is positive for opiates benzodiazepines and marijuana Gummies. Knee x-ray shows no knee joint effusion. There is some prepatellar soft tissue swelling. Head CT is negative. Chest x-ray is negative. She does have a mild urinary tract infection. Blood cultures are sent. She is covered with Zosyn. She has a significant candidal rash to her intertriginous groin areas and vaginal area. She is given IV Diflucan for this. Reason for alteration mental status is likely multifactorial, given mild urinary tract infection, dehydration, and pharmaceuticals. She will be admitted. Continue to treat the above. Fluid support. Hospitalist will see the patient. Lab Data 02/16/25 23:40 02/16/25 23:40 Radiology Impressions Chest X-Ray 02/16/25 23:41 IMPRESSION: No definite acute infiltrate or effusion. Head CT 02/16/25 23:41 IMPRESSION: No acute intracranial abnormality. Knee X-Ray 02/16/25 23:48 IMPRESSION: Query mild prepatellar soft tissue swelling, could be related to bursitis or trauma with other etiologies not excluded. Laboratory Results WBC 14.18 10^3/uL (3.29-11.43) H 02/16/25 23:40 RBC 3.60 10^6/uL (3.85-5.65) L 02/16/25 23:40 Hgb 12.20 g/dL (11.27-16.99) 02/16/25 23:40 Hct 36.7 % (36-47) 02/16/25 23:40 MCV 101.9 fl (85-98) H 02/16/25 23:40 MCH 33.9 pg (27-33) H 02/16/25 23:40 MCHC 33.2 g/dL (30-55) 02/16/25 23:40 RDW 14.1 % (12.1-15.1) 02/16/25 23:40 Plt Count 323 10^3/cmm (157-399) 02/16/25 23:40 MPV 11.1 fL (7.4-10.4) H 02/16/25 23:40 Neut % (Auto) 69.9 % 02/16/25 23:40 Lymph % (Auto) 20.3 % 02/16/25 23:40 Andrews % (Auto) 8.4 % 02/16/25 23:40 Eos % (Auto) 0.8 % 02/16/25 23:40 Baso % (Auto) 0.4 % 02/16/25 23:40 Neut # (Auto) 9.90 10^3/uL (1.8-7.7) H 02/16/25 23:40 Lymph # (Auto) 2.9 10^3/uL (0.8-4.8) 02/16/25 23:40 Andrews # (Auto) 1.2 10^3/uL (0.2-0.9) H 02/16/25 23:40 Eos # (Auto) 0.1 10^3/uL (0.0-0.8) 02/16/25 23:40 Baso # (Auto) 0.1 10^3/uL (0.0-0.1) 02/16/25 23:40 Nucleated RBC % (auto) 0 % 02/16/25 23:40 Nucleated RBCs # 0.0 /100WBC 02/16/25 23:40 Specimen Type Arterial 02/16/25 00:15 Sample Site Radial, left 02/16/25 00:15 ABG pH 7.47 (7.35-7.45) H 02/16/25 00:15 ABG pCO2 29.0 mmHg (35-45) L 02/16/25 00:15 ABG pO2 94.1 mmHg (80.0-100.0) 02/16/25 00:15 ABG PO2/FiO2 Ratio 448 02/16/25 00:15 ABG HCO3 21.0 mmol/L (22-26) L 02/16/25 00:15 ABG Base Excess -1.7 mmol/L (-2.0-2.0) 02/16/25 00:15 Jovany Test Pos 02/16/25 00:15 Hematocrit 37.9 % (37-47) 02/16/25 00:15 Hgb O2 Saturation 97.2 % (95-100) 02/16/25 00:15 Carboxyhemoglobin 1.1 %THgb (0.4-20.1) 02/16/25 00:15 Methemoglobin 0.2 % (0.4-1.5) L 02/16/25 00:15 Total Hemoglobin 12.3 g/dL (12-16) 02/16/25 00:15 O2 Delivery Device Room air 02/16/25 00:15 FiO2 21.0 % 02/16/25 00:15 Box Loader ID [email or web address] 02/16/25 00:15 Sodium 140 mmol/L (136-145) 02/16/25 23:40 Potassium 3.8 mmol/L (3.5-5.1) 02/16/25 23:40 Chloride 101 mmol/L (98-107) 02/16/25 23:40 Carbon Dioxide 21 mmol/L (22-29) L 02/16/25 23:40 Anion Gap 21.8 (5-19) H 02/16/25 23:40 BUN 23 mg/dL (8-23) 02/16/25 23:40 Creatinine 0.7 mg/dL (0.5-0.9) 02/16/25 23:40 GFR Calculation Not Reportable 02/16/25 23:40 Glucose 92 mg/dL (65-115) 02/16/25 23:40 Calculated Osmolality 293 mOsm/kg (285-295) 02/16/25 23:40 Lactic Acid 2.0 mmol/L (0.5-2.2) 02/16/25 23:40 Calcium 9.6 mg/dL (8.5-10.5) 02/16/25 23:40 Magnesium 1.7 mg/dL (1.7-2.3) 02/16/25 23:40 Total Bilirubin 0.5 mg/dL (0.15-1.2) 02/16/25 23:40 AST 41 U/L (0-32) H 02/16/25 23:40 ALT < 5 U/L (0-33) 02/16/25 23:40 Alkaline Phosphatase 138 U/L (35-105) H 02/16/25 23:40 Creatine Kinase 1106 U/L (26-192) H* 02/16/25 23:40 C-Reactive Protein 65.8 mg/L (0.0-4.9) H 02/16/25 23:40 Total Protein 8.0 g/dL (6.6-8.7) 02/16/25 23:40 Albumin 4.1 g/dL (3.5-5.2) 02/16/25 23:40 Globulin 3.9 g/dL (1.3-4.6) 02/16/25 23:40 Procalcitonin 0.17 ng/mL (0-0.5) 02/16/25 23:40 Urine Color Yellow (Yellow) 02/17/25 01:58 Urine Appearance Clear (CLEAR) 02/17/25 01:58 Urine pH 5 (5-7) 02/17/25 01:58 Ur Specific [place] 1.025 (1.005-1.030) 02/17/25 01:58 Urine Protein 1+ (Negative) H 02/17/25 01:58 Urine Glucose (UA) Norm (Normal) 02/17/25 01:58 Urine Ketones 2+ (Negative) H 02/17/25 01:58 Urine Blood 2+ (Negative) H 02/17/25 01:58 Urine Nitrate Negative (Negative) 02/17/25 01:58 Urine Bilirubin Neg (Negative) 02/17/25 01:58 Urine Urobilinogen 1 mg/dL (Negative) H 02/17/25 01:58 Ur Leukocyte Esterase 1+ (Negative) H 02/17/25 01:58 Urine RBC 15-25 /hpf (0-2) H 02/17/25 01:58 Urine WBC 11-20 /hpf (0-5) H 02/17/25 01:58 Ur Squamous Epith Cells 6-10 /hpf (0-5) 02/17/25 01:58 Calcium Oxalate Crystal 5-10 /hpf H 02/17/25 01:58 Amorphous Sediment Not Reportable 02/17/25 01:58 Urine Bacteria 1+ /hpf (NONE) H 02/17/25 01:58 Hyaline Casts 15-25 /lpf H 02/17/25 01:58 Fine Granular Casts 0-4 /lpf H 02/17/25 01:58 Urine Mucus 4+ /hpf 02/17/25 01:58 Urine Opiates Screen Positive ng/mL (Negative) H 02/17/25 01:58 Ur Barbiturates Screen Negative ng/mL (Negative) 02/17/25 01:58 Ur Phencyclidine Scrn Negative ng/mL (Negative) 02/17/25 01:58 Ur Amphetamines Screen Negative ng/mL (Negative) 02/17/25 01:58 U Benzodiazepines Scrn Positive ng/mL (Negative) H 02/17/25 01:58 Urine Cocaine Screen Negative ng/mL (Negative) 02/17/25 01:58 U Marijuana (THC) Screen Positive ng/mL (Negative) H 02/17/25 01:58 Ethyl Alcohol < 10 mg/dL (0-10) 02/16/25 23:40 All radiology interpretation(s) finalized by discharge Discharge Plan Discharge Patient Disposition: Admitted As Inpatient Clinical Impression: Altered mental status, Delirium due to general medical condition, Recurrent UTI Condition: Stable Coding Level of Care Code ED Undertaker Assistant for Alcira Dickey
[2025-02-16 23:48] LABS: Hematocrit 36.7 % (36-47); Hemoglobin 12.20 g/dL (11.27-16.99); Mean Corpuscular HGB Conc 33.2 g/dL (30-55); Mean Corpuscular Hemoglobin 33.9 pg (27-33); Mean Corpuscular Volume 101.9 fl (85-98); Nucleated Red Blood Cells % 0 %; Platelet Count 323 10^3/cmm (157-399); Red Blood Count 3.60 10^6/uL (3.85-5.65); White Blood Count 14.18 10^3/uL (3.29-11.43)
--- NOTE | 2025-02-16 23:48 | XRR_ITS ---
PROCEDURE INFORMATION: Exam: XR Right Knee Exam date and time: 02/16/2025 11:48 PM Age: 74 years old Clinical indication: Pain; Prior surgery; Surgery date: 6+ months; Surgery type: Right knee replacement, date unknown; Additional info: Right knee replacement, redness TECHNIQUE: Imaging protocol: Radiologic exam of the right knee. Views: 3 views. COMPARISON: CR XR knee RT 3V* [id number] 10/17/2024 4:35 PM FINDINGS: Bones/joints: Total knee replacement . Soft tissues: Query mild prepatellar soft tissue swelling, could be related to bursitis or trauma with other etiologies not excluded. XR/XR knee RT 3V* [id number] IMPRESSION: Query mild prepatellar soft tissue swelling, could be related to bursitis or trauma with other etiologies not excluded.
[2025-02-17] VITALS (35 sets, daily range): BP systolic 54–206; BP diastolic 35–123; PULSE 89–121; RESP 16–45; TEMP 36.8–37.3; O2SAT 91–99; BMI 40.0
[2025-02-17 00:04] LABS: Lactic Sepsis W/Reflex 2.0 mmol/L (0.5-2.2)
[2025-02-17 00:07] LABS: Alanine Aminotransferase < 5 U/L (0-33); Albumin Level 4.1 g/dL (3.5-5.2); Alkaline Phosphatase 138 U/L (35-105); Anion Gap 21.8 (5-19); Aspartate Amino Transferase 41 U/L (0-32); Blood Urea Nitrogen 23 mg/dL (8-23); Calcium 9.6 mg/dL (8.5-10.5); Carbon Dioxide 21 mmol/L (22-29); Chloride 101 mmol/L (98-107); Creatinine Clr Calc Pharmacy 70.4012; Globulin 3.9 g/dL (1.3-4.6); Glucose 92 mg/dL (65-115); Magnesium 1.7 mg/dL (1.7-2.3); Osmolality Calculated 293 mOsm/kg (285-295); Potassium 3.8 mmol/L (3.5-5.1); Sodium 140 mmol/L (136-145); Total Protein 8.0 g/dL (6.6-8.7)
[2025-02-17 00:13] LABS: Alcohol Level < 10 mg/dL (0-10)
[2025-02-17 00:14] LABS: Procalcitonin 0.17 ng/mL (0-0.5)
[2025-02-17 00:27] LABS: ABG PCO2 29.0 mmHg (35-45); ABG PH Result 7.47 (7.35-7.45); Arterial Blood Gas Hematocrit 37.9 % (37-47); Blood Gas Allen Test Pos; Blood Gas Operator Identificat gerca; Blood Gas Sample Site Radial, left; Blood Gas Sample Type Arterial; Carboxyhemoglobin 1.1 %THgb (0.4-20.1); HCO3 ABG 21.0 mmol/L (22-26); Methemoglobin 0.2 % (0.4-1.5); PO2 ABG 94.1 mmHg (80.0-100.0); PO2 FiO2 Ratio Arterial Blood 448
[2025-02-17] MEDS: midazolam 1 mg/mL INJ 2 mL 2 MG IVP (01:08)
[2025-02-17 02:11] LABS: Glucose Urine UA Norm (Normal); Nitrate Urine Negative (Negative); Specific Gravity, Urine 1.025 (1.005-1.030)
[2025-02-17] MEDS: lidocaine 2% Urojet 20 mL TOPICAL (02:11)
[2025-02-17 02:12] LABS: UA Manual Slide Review YES
[2025-02-17 02:14] LABS: Add Urine Microscopic? YES
[2025-02-17] MEDS: piperacillin-tazobactam 4.5 GM in sodium chloride 0.9% (plus) 50 ML IV (02:31)
[2025-02-17] MEDS: fluconazole premix 200 MG/100 ML PREMIX 100 MG IV (02:34)
[2025-02-17 02:37] LABS: PCP Screen Urine Negative (Negative)
--- NOTE | 2025-02-17 03:57 | PM.HP ---
Providers/Chief Complaint Admitting Physician: Floresita Payan MD Primary Care Provider: Thanh Washington DO Chief Complaint: Confusion\AMS History of Present Illness Rakel Anderson is a 74 year old female with long-term history with parkinsonism and that had not gotten worse in the last 1 to 2 months with much rhythmic movements of the body. Prior to this patient can have these rhythmic movement that would last maybe 5 to 10 minutes according to the son that the last month into now the rhythmic movement is very constant. Today the son noted that patient could not recognize him and could not tell what she heard for lunch but could tell what she had for breakfast. She had not been taking her pain medication she normally take the gummy marijuana and had not taken it for a while and had not taken other hydrocodone that she normally takes. Workup at the emergency room did show leukocytosis in the urine significant for UTI, CT of the brain was negative chest x-ray negative patient was volume contracted sepsis volume with normal saline were given. Patient responded to IV fluid. Patient also was given Zosyn antibiotics and Diflucan as the perineal area is excoriated. Review of Systems Narrative: System review upon 10 organ review were noted to be unremarkable except for change in mental status with rhythmic body motion Medications/Allergies Home Medications ?Medication ?Instructions ?Recorded ?Confirmed ?Last Taken ?Type clonazepam 0.5 mg tablet 0.5 mg PO DAILY 08/13/19 11/13/23 Unknown History hydrocodone 5 mg-acetaminophen 325 1 tab PO BID PRN 08/13/19 11/13/23 Unknown History mg tablet omeprazole 40 mg capsule,delayed 40 mg PO DAILY 08/13/19 11/13/23 Unknown History release rasagiline 1 mg tablet (Azilect) 1 mg PO DAILY 08/13/19 11/13/23 Unknown History conjugated estrogens 0.625 mg/gram 0.625 mg vaginal DAILY PRN 08/14/19 11/13/23 Unknown History vaginal cream (Premarin) ropinirole 3 mg tablet (Requip) 3 mg PO BID 08/14/19 11/13/23 Unknown History solifenacin 10 mg tablet (Vesicare) 10 mg PO DAILY #30 tabs 03/30/20 11/13/23 Unknown Rx amantadine HCl 100 mg capsule 100 mg PO BID 09/28/21 11/13/23 Unknown History fluoxetine 40 mg capsule 40 mg PO DAILY 09/28/21 11/13/23 Unknown History venlafaxine 50 mg tablet 50 mg PO DAILY 09/28/21 11/13/23 Unknown History carbidopa ER 50 mg-levodopa 200 mg 1 tab PO .HS 06/15/22 11/13/23 Unknown History tablet,extended release gabapentin 600 mg tablet 600 mg PO TID 06/15/22 11/13/23 Unknown History lactobacillus combination no.9 4 4,000 mmu cells PO DAILY 06/15/22 11/13/23 Unknown History billion cell capsule (Adult 50 Plus Probiotic) diclofenac sodium 1 % topical gel 4 g topical QID #100 grams 09/14/22 11/13/23 Unknown Rx carbidopa 25 mg-levodopa 100 mg 2 tab PO QID 11/13/23 11/13/23 Unknown History tablet (Sinemet) hydroxychloroquine 200 mg tablet See Rx Instructions .Route 11/13/23 11/13/23 Unknown Rx .COMPLEX #180 tabs leflunomide 20 mg tablet 20 mg PO DAILY #90 tabs 11/13/23 11/13/23 Unknown Rx prednisone 5 mg tablet See Rx Instructions PO .COMPLEX 11/13/23 11/13/23 Unknown Rx #90 tabs prednisone 10 mg tablet See Rx Instructions PO .COMPLEX 01/10/24 Unknown Rx PRN joint pain #30 tabs Allergies Allergy/AdvReac Type Severity Reaction Status Date / Time methotrexate AdvReac Severe diarrhea Verified 11/13/23 10:50 Sulfa (Sulfonamide AdvReac Mild nausea Verified 11/13/23 10:50 Antibiotics) PFSH Acute PFSH: Medical History Piriformis syndrome of left side Osteoarthritis, generalized Seronegative rheumatoid arthritis of both hands Mixed stress and urge urinary incontinence History of calcium pyrophosphate deposition disease (CPPD) Inflammatory arthritis High risk medication use Immunization counseling Osteoarthritis Recurrent UTI Surgical History History of History of hysterectomy H/O arthroscopy of left knee History of esophageal surgery History of cholecystectomy History of tubal ligation Hx of repair of left rotator cuff History of left knee replacement Family History Father , at age 69 Cancer pancreatic cancer Emphysema lung Mother , at age 57 Enlarged heart Other Diabetes Family history of premature coronary artery disease Heart disease Hypertension Systemic lupus erythematosus (SLE) in adult Denies family history of Chronic kidney disease (CKD) Social History Smoking and tobacco/nicotine status: never used tobacco/nicotine Alcohol intake: never Substance/Drug Use: unknown Adopted: No Caregiver/support person: No Lives independently: No Household members: spouse Marital status: Current occupational status: retired Current gender identity: Female Vitals/I&O/Wt Last Vital Signs Temp 98.3 F 02/16/25 23:17 Pulse 100 02/17/25 03:39 Resp 16 02/17/25 03:39 BP 113/90 02/17/25 03:39 Pulse Ox 98 02/17/25 03:39 O2 Del Method Room Air 02/16/25 23:17 02/16/25 02/16/25 02/17/25 14:59 22:59 06:59 Intake Total 0 / 0 Balance 0 / 0 Weight last 48 hrs Weight 100.244 kg Physical Exam Narrative: Patient is awake alert oriented x 3 on my examination with the son at the bedside giving more medical history. HEENT normocephalic atraumatic neck neck is supple cardiovascular heart rate is regular lungs are pretty much clear abdomen soft nontender nondistended unremarkable extremities are intact no edema has good pulses neurology has no focality lab studies lab studies reviewed and noted. Data 02/16/25 23:40 02/16/25 23:40 Micro: Microbiology 02/16/25 00:27 Blood Culture - Preliminary Blood SPECIMEN COLLECTED 02/16/25 00:20 Blood Culture - Preliminary Blood SPECIMEN COLLECTED A&P Assessment and plan 1. Delirium due to general medical condition: 2. Altered mental status: 3. Piriformis syndrome of left side: 4. UTI (urinary tract infection): 5. Dehydration: 6. Parkinson disease with dyskinesia: Plan: Change in mental status significant for acute delirium due to multiple etiology like urinary tract infection with dehydration - Admit to general medical floor with telemetry - CT head negative/chest x-ray negative/urine drug screen not suspicious - IV hydration for sepsis boluses initiated - Echocardiogram ordered Lactic acidosis compounded with dehydration - IV fluid given and patient responded with almost coming back to mental status baseline UTI with acute delirium - Initiated with Zosyn for broader spectrum - Continue to treat and optimize - Follow cultures Cutaneous candidiasis - Diflucan initiated - MARIANA care on board regarding cutaneous candidiasis in this area - Follow-up with interval improvement Parkinson's disease with dyskinesia - Continue current Parkinson medication - Updated medication so her medicine can be restarted - Patient does have appointments with the neurologist within the next week GI and DVT prophylaxis in place PDMP PDMP Reviewed: Last Reviewed 02/17/25 04:25 by Floresita Payan MD Attestations Medical Necessity Statement*: Patient with end-stage parkinsonism with a sudden change in mental status significant for delirium needing IV hydration the patient had responded to but will need at least 2 midnights to further optimize care. Coding Level of Care Code 00232 Diagnoses Delirium due to general medical condition F05 Altered mental status R41.82 Piriformis syndrome of left side G57.02 UTI (urinary tract infection) N39.0 Dehydration E86.0 Parkinson disease with dyskinesia G20.B1 Time Spent (min) 60
[2025-02-17 04:49] LABS: Procalcitonin 0.17 ng/mL (0-0.5)
[2025-02-17] MEDS: heparin 5,000 unit/mL INJ 1 mL 5000 UNIT SUBCUT ×2 (05:52→15:41)
--- NOTE | 2025-02-17 08:52 | PC.PHAR ---
3 medications removed from chart: Hydoxychloroquine 200mg bid 11/13/23, Leflunomide 20mg daily 11/13/23, and Prednisone 5mg daily 11/13/23. All have not been filled in over a year. Pt in a deep sleep and spouse verified medications.
[2025-02-17] MEDS: piperacillin-tazobactam 3.375 GM in sodium chloride 0.9% (plus) 50 ML IV (11:01)
--- NOTE | 2025-02-17 12:02 | PM.PN ---
Documented by User: Ata VoMANUELITO villa STDNT 02/17/25 13:42 Subjective Subjective: Rakel Anderson, 74F, doing okay this morning. She is accompanied by her , Mac. She appears groggy, but is responsive and can answer questions with occasional memory lapses. She denies being in pain nor dysuria. Mac notes an improvement in her mental status but not quite to baseline. Her history is notable for end-stage Parkinson disease, recurrent dysuria and urinary frequency, CPPD stones, rheumatoid arthritis, and complete knee replacement complicated by falls requiring reoperation. She currently takes prednisone 10mg, methotrexate, and carvidopa-levodopa. Vitals/I&O/Wt Last Vital Signs Temp 98.3 F 02/17/25 11:45 Pulse 95 02/17/25 11:45 Resp 18 02/17/25 11:45 BP 155/82 02/17/25 11:45 Pulse Ox 97 02/17/25 11:45 O2 Del Method Room Air 02/17/25 11:45 02/16/25 02/17/25 02/17/25 22:59 06:59 14:59 Intake Total 4157.32 / 4157.32 360 / 360 Balance 4157.32 / 4157.32 360 / 360 Weight last 48 hrs Weight 99.382 kg Weight 100.244 kg Physical Exam Const: COMMON NORMALS: no acute distress and patient oriented x3 HENMT: COMMON NORMALS: atraumatic HEAD & SCALP: atraumatic Resp: COMMON NORMALS: clear to auscultation bilaterally AUSCULTATION: clear to auscultation bilaterally, no crackles, no rales and no wheezes Cardio: COMMON NORMALS: regular rate, regular rhythm, S1 normal heart sound present and S2 normal heart sound present RATE: regular rate RHYTHM: regular rhythm HEART SOUNDS: S1 normal heart sound present, S2 normal heart sound present, no gallops, no murmurs and no rubs GI: AUSCULTATION: Yes normoactive bowel sounds PALPATION: Yes Tenderness to palpation present (GI) (deep palpation) Details: LUQ and RUQ Extremity: RIGHT LOWER EXTREMITY: Yes knee joint Right knee: Yes inspection (not erythematous nor swollen) Neuro: COMMON NORMALS: patient oriented x3 Skin: LESIONS: lesion noted (moist erythema noted underneath bilateral breast folds and in pelvic folds) Data 02/16/25 23:40 02/16/25 23:40 Micro: Microbiology 02/16/25 00:27 Blood Culture - Preliminary Blood SPECIMEN COLLECTED 02/16/25 00:20 Blood Culture - Preliminary Blood SPECIMEN COLLECTED A&P Assessment and plan 1. Altered mental status: UA lab studies and preliminary cultures do not rule out other causes of AMS. Will perform renal US to assess presence of CPP stones or other obstructive uropathies. Additionally, CT angiogram of the R knee will be performed to assess for possible spread from infected joint due to recent knee surgery and concomitant prednisone use. 2. UTI (urinary tract infection): Urinalysis performed shows 6-10 squamous epith cells, RBCs, and calcium oxalate crystals. Patient denies dysuria which also rules down UTI. Awaiting cultures but will assess for other causes of altered mental status. Plan: 1. Altered mental status: Assess causes of AMS as discussed above and monitor for 48 hours to tailor care plan. 2. UTI: Continue Zosyn and IV fluids and await blood and urine cultures. 3. Cutaneous candidiasis: Notable skin exam findings. Will administer Nystatin powder BID alongside IV Diflucan. 4. Parkinson: Continue current medications; patient has neurology appointment next week. PDMP PDMP Reviewed: Not Reviewed Attestations Medical Necessity Statement*: Workup for AMS etiology Coding Level of Care Code Acute Code for [facility] Fwd Diagnoses Altered mental status R41.82 UTI (urinary tract infection) N39.0 Documented by User: Nicole Kaye MD 02/17/25 16:18 Data 02/16/25 23:40 02/16/25 23:40 A&P Assessment and plan 1. Altered mental status: 2. UTI (urinary tract infection): Plan: 1. Altered mental status: Assess causes of AMS as discussed above and monitor for 48 hours to tailor care plan. 2. UTI: Continue Zosyn and IV fluids and await blood and urine cultures. 3. Cutaneous candidiasis: Notable skin exam findings. Will administer Nystatin powder BID alongside IV Diflucan. 4. Parkinson: Continue current medications; patient has neurology appointment next week. February 17, 2025 Attending note: Overnight labs and H&P reviewed. Patient seen and examined with med student. Patient has a history of CPPD, inflammatory arthritis, chronically maintained on prednisone 10 mg daily and methotrexate once a week. Admitted overnight with complaints of 3 days of altered mental status and a background history of Parkinson dementia. Typically patient is alert awake oriented x 3 however was exhibiting confusion different than her baseline. This afternoon, she is correctly able to tell me her name, age, date of . She needed to be reoriented as to her whereabouts. She is forgetful in conversation. says not yet at baseline however appears to be getting better. Overall clinical impression appears to be that of metabolic encephalopathy, perhaps related to an underlying infection given leukocytosis and elevated inflammatory markers including ESR CRP. Labs notable for rhabdomyolysis for which she will be on IV fluids. Medication list reviewed, no offending agents noted to explain rhabdomyolysis. UA with 6-10 epithelial cells, positive calcium oxalate crystals, positive RBCs. Positive WBCs. Suspect that this may not be a clean-catch specimen. With altered mentation, metabolic encephalopathy, would be concerned if delirium is related to a urinary source, likely to be pyelonephritis rather than simple cystitis. Check CT KUB to assess for any hydronephrosis or obstructing stones given positive calcium oxalate crystals on UA. Notable recent history for right TKA at [place] with Dr. Ferguson 4 weeks ago. On the day of discharge, patient reportedly fell at home which led to her wound opening up. She returned to the operating room about 24 hours afterwards. She was discharged home on oral antibiotics which she continued for 1 week after. Currently her right knee is noted to be slightly more swollen compared to left side. No significant erythema however noted to have increased warmth at the site. Small area of skin tear just inferior to the suture line. Will obtain CT of the knee due to concern for potential septic arthritis as source of underlying infection. If CT does show concerning effusion, will likely need synovial fluid aspiration for further diagnostics. No diarrhea. Awaiting blood culture from admission. Resume oral prednisone at home dosing to minimize risk for adrenal insufficiency. hold methotrexate. patient reports taking prednisone daily though its appears it is ordered only as a prn Noted to have blood pressure up to 190/110 upon admission. This afternoon blood pressure as high as 206/74. She denies any known history of hypertension in the past. Potentially PRESS remains on the differential. start amlodipine and pen hydralazine . Currently on piperacillin/tazobactam. Discontinue Zosyn. narrow to ceftriaxone 1 g IV every 24 hours and add vancomycin given concern for potential PJI. Add IVF for rhabdomyolysis. D/c iv fluconazole. Change to po. PDMP PDMP Reviewed: Not Reviewed Attestations Medical Necessity Statement*: Workup for AMS etiology, concern for PJI Coding Level of Care Code Acute Code for [facility] Fwd Diagnoses Altered mental status R41.82 UTI (urinary tract infection) N39.0
--- NOTE | 2025-02-17 16:00 | CTR_ITS ---
PROCEDURE INFORMATION: Exam: CT Abdomen And Pelvis Without Contrast Exam date and time: 02/17/2025 4:22 PM Age: 74 years old Clinical indication: Other: Hydronephrosis; Additional info: Assess fo hydronephrosis TECHNIQUE: Imaging protocol: Computed tomography of the abdomen and pelvis without contrast. Radiation optimization: All CT scans at this facility use at least one of these dose optimization techniques: automated exposure control; mA and/or kV adjustment per patient size (includes targeted exams where dose is matched to clinical indication); or iterative reconstruction. COMPARISON: CT abdomen pelvis w con* 00008 05/19/2020 12:05 PM RADIATION DOSE METRICS: Total DLP (mGy-cm): 1053.53 FINDINGS: Lungs: Subsegmental atelectasis of the lung bases. Liver: Normal. No mass. Gallbladder and biliary ducts: Gallbladder is surgically absent. Pancreas: Normal. No ductal dilation. Spleen: Normal. No splenomegaly. Adrenal glands: Normal. No mass. Kidneys and ureters: Nonobstructing nephrolithiasis. No hydronephrosis. Stomach and bowel: Small paraesophageal hernia. Colonic diverticulosis. No evidence of bowel obstruction. Appendix: No evidence of appendicitis. Intraperitoneal space: Unremarkable. No free air. No significant fluid collection. Vasculature: Mild abdominal aorta atherosclerosis without evidence of aneurysm. Lymph nodes: Unremarkable. No enlarged lymph nodes. Urinary bladder: Unremarkable as visualized. Reproductive: The uterus demonstrate normal course and caliber. Bones/joints: Chronic compression deformities of the lower thoracic spine. Postsurgical changes related to posterior fusion of the lower lumbar spine. Soft tissues: Unremarkable. CT/CT kidney stone [id number] IMPRESSION: No acute findings. Incidental and chronic findings as above.
--- NOTE | 2025-02-17 16:03 | CTR_ITS ---
PROCEDURE INFORMATION: Exam: CT Right Lower Extremity With Contrast, Knee Exam date and time: 02/17/2025 4:24 PM Age: 74 years old Clinical indication: Pain; Right; Prior surgery; Surgery date: 1-6 months; Surgery type: RT knee; Additional info: Concern for septic arthirtis, right knee S/P tkr one months ago followed by fall and TECHNIQUE: Imaging protocol: CT of the right lower extremity with intravenous contrast was performed. Exam focused on the knee. Radiation optimization: All CT scans at this facility use at least one of these dose optimization techniques: automated exposure control; mA and/or kV adjustment per patient size (includes targeted exams where dose is matched to clinical indication); or iterative reconstruction. Contrast material: OMNIPAQUE 350; Contrast volume: 100 ml; Contrast route: INTRAVENOUS (IV); COMPARISON: CR (LOW EXM, ) 02/16/2025 11:48 PM RADIATION DOSE METRICS: Total DLP (mGy-cm): 447.04 FINDINGS: Limitations: The examination is limited by metallic streak artifact. Bones/joints: Status post prior right total knee arthroplasty. Prosthesis appears intact and normally aligned. No evidence for loosening of the prosthesis. No acute fracture. Large irregular suprapatellar joint effusion is present. Suprapatellar joint effusion measures up to 4.3 x 3.2 x 6.1 cm. Joint effusion extends inferiorly deep to the patellar tendon. There is associated synovial thickening, enhancement and slight nodularity. No popliteal cyst. Prior screw tracts are present within the distal shaft of the femur and proximal shaft of the tibia. Areas of lucency with peripheral sclerotic rim is present at the head of the fibula which is somewhat nonspecific. Soft tissues: Subcutaneous edema and swelling is present along the lower thigh, lateral aspect of the knee and extending along the lateral aspect of the calf. Visualized portion of the long head of the biceps femoris muscle and semimembranosus muscle demonstrate fatty replacement. CT/CT knee RT w con [id number] IMPRESSION: 1. Status post prior right total knee arthroplasty. Prosthesis appears intact. No evidence for loosening of the prosthesis. No associated fracture. 2. Large irregular suprapatellar joint effusion is present. Joint fluid extends inferiorly along the anterior joint line and deep to the patellar tendon. Suprapatellar joint effusion measures up to 4.3 x 3.2 x 6.1 cm. There is apparent associated synovial thickening and nodularity. Synovium demonstrates heterogeneous enhancement. Mild overlying skin thickening and subcutaneous edema. Joint aspiration is recommended if not already performed to evaluate for infectious process. 3. Fatty replacement of the visualized portion of the long head of the biceps femoris muscle and semimembranosus muscle.
[2025-02-17] MEDS: iohexol 350 mg/mL 500 mL Btl (per mL) IV (16:28)
[2025-02-17] MEDS: hyDRALAzine 20 mg/mL INJ 1 mL 10 MG IVP (16:59)
[2025-02-17] MEDS: cefTRIAXone 1,000 mg SDV 1000 MG IVP (17:00)
[2025-02-17] MEDS: carbidopa-levodopa 25-100mg Tablet 2 EACH PO (17:39)
[2025-02-17] MEDS: EPINEPHrine 2.5 MG in sodium chloride 0.9% 250 ML 6.06 MG IV ×2 (18:18→18:25)
--- NOTE | 2025-02-17 18:19 | ECG_ITS ---
[facility] Test Date: 2025-02-17 Pat Name: Rakel Anderson Department: Room: ICU11 Gender: Female Field Sales Consultant: : 1950 Requested By: Nicole Kaye Order Number: [id number] Reading MD: Neal Patel M.D. Measurements Intervals [place] Rate: 110 P: 34 NC: 136 QRS: 41 QRSD: 86 T: 32 QT: 348 QTc: 471 Interpretive Statements SINUS TACHYCARDIA WITH FREQUENT VENTRICULAR PREMATURE COMPLEXES LOW QRS VOLTAGE IN PRECORDIAL LEADS [QRS DEFLECTION < 1.0 mV IN CHEST LEADS] ANTEROSEPTAL MYOCARDIAL INFARCTION , PROBABLY OLD [40+ ms Q WAVE IN V1-V4] Compared to ECG 02/17/2025 00:28:10 Ventricular premature complex(es) now present Electronically Signed On 02-19-2025 21:27:58 CDT by Neal Patel M.D. [id number]
--- NOTE | 2025-02-17 18:22 | PC.NURSE ---
Patient arrived to ICU at 1814. Epi gtt started per Dr. dunn orders see JUL>
--- NOTE | 2025-02-17 18:25 | PC.NURSE ---
Gave patient evening medications. Hydralazine, rocephine, carbadoba, colace and hung vancomyicin. TELEHEALTH NURSE EDUCATOR came to this nurse and stated the patient was itching and could not breath. This nurse and charge nurse went to room. Dr. Kaye notified patient having an allergic reaction. Vitals BP 101/51, HR 122, Temp 98.5, O2 89%. Dr. Kaye came to room, stated call rapid and get crash cart.
--- NOTE | 2025-02-17 18:28 | PM.CCNAC ---
Critical Care Event Note The high probability of a clinically significant, sudden or life threatening deterioration of the patient's [] system(s) required my full and direct attention, intervention and personal management. The critical care time is as shown. This time is in addition to time spent performing any reported procedures but includes the following: [x] Data and vital sign review and interpretation [x] Patient assessment, examination and intervention [x] Documentation [x] Medication orders and management Critical Care Time Code activated: Yes Critical Care Time (min): 40 Additional information about critical care time: Called by RN to report that patient is having trouble breathing. At bedside exam, patient has diffuse rash affecting entire body. Her tongue was swollen. She complained of difficulty breathing and chest tightness. BP 74/52 mmhg, HR 114/min, 02 sat 89% on 5lpm supplemental 02. Concern for anaphylaxis. She is alert and awake, answering questions. In the past hour she received iv ceftriaxone, iv vancomycin, iv hydralazine and iv contrast for CT, any of which may have been the culprit. She received iv methylpred 125mg x 1, iv benadryl 25 mg, im epi 0.4 mg. She was moved to the ICU and started on iv epinephrine infusion, currently at 1mcg/min. VS improving with BP now 129/54 mmhg. HR 110/min, few VPCs, EKG obtained. reports she has had iv contrast in the past, less likely to be the cause. She has been on Zosyn, less likely beta lactam to be the cause no known abx allergy except sulfa drugs. May be related to hydralazine vs iv vancomycin. D/c vancomycin, hydralazine, ceftriaxone for tonight. She has had adequate abx coverage today. In am, will likely resume ceftriaxone with close monitoring. Vancomycin will be replaced by daptomycin vs linezolid if CT knee shows concern for PJI. D/c hydralazine. Coding Level of Care Code Acute Code for [facility]
[2025-02-17] MEDS: methylPREDNISolone sod succ 125 mg/2 mL INJ IVP (18:33)
[2025-02-17 18:46] LABS: ABG PCO2 26.0 mmHg (35-45); ABG PH Result 7.46 (7.35-7.45); Arterial Blood Gas Hematocrit 41.8 % (37-47); Blood Gas Allen Test Pos; Blood Gas LPM 4.0 %; Blood Gas Operator Identificat CAK; Blood Gas Sample Site Radial, left; Blood Gas Sample Type Arterial; HCO3 ABG 18.5 mmol/L (22-26); PO2 ABG 90.6 mmHg (80.0-100.0); PO2 FiO2 Ratio Arterial Blood 251
[2025-02-17] MEDS: carbidopa-levodopa ER 50-200mg Tablet 1 EACH PO (20:32)
--- NOTE | 2025-02-17 20:46 | ECG_ITS ---
[facility] Test Date: 2025-02-17 Pat Name: Rakel Anderson Department: Room: [facility] Gender: Female Metaphysician: : 1950 Requested By: Nicole Kaye Order Number: [id number] Gregg MD: Neal Patel M.D. Measurements Intervals [place] Rate: 111 P: 123 CA: 173 QRS: 188 QRSD: 102 T: 150 QT: 348 QTc: 475 Interpretive Statements SINUS TACHYCARDIA OLD ANTEROSEPTAL INFARCTION ARM LEADS REVERSED [INVERTED P AND QRS IN I] ABNORMAL RHYTHM ECG Compared to ECG 02/17/2025 18:19:36 Ventricular premature complex(es) no longer present ARM LEAD REVERSAL IS NEW Electronically Signed On 02-19-2025 21:09:35 CDT by Neal Patel M.D. [email or web address] [id number]
--- NOTE | 2025-02-17 20:59 | PC.NURSE ---
received verbal order from Dr. Dillard to resume patient's home dose of clonazepam 0.5 mg po at bedtime
--- NOTE | 2025-02-17 22:05 | PC.NURSE ---
Patient not compliant on keeping oxygen on. This nurse educated the importance of medication compliance. Patient O2 sat is consistently staying at 93-95% at room air. Will continue to monitor
[2025-02-18] VITALS (71 sets, daily range): BP systolic 116–183; BP diastolic 52–109; PULSE 93–116; RESP 16–44; TEMP 36.6–36.9; O2SAT 92–99
[2025-02-18] MEDS: hydrocortisone 100 mg/2 mL SDV IVP ×2 (00:15→06:09)
[2025-02-18 03:45] LABS: Hematocrit 38.5 % (36-47); Hemoglobin 12.60 g/dL (11.27-16.99); Mean Corpuscular HGB Conc 32.7 g/dL (30-55); Mean Corpuscular Hemoglobin 33.5 pg (27-33); Mean Corpuscular Volume 102.4 fl (85-98); Nucleated Red Blood Cells % 0 %; Platelet Count 307 10^3/cmm (157-399); Red Blood Count 3.76 10^6/uL (3.85-5.65); White Blood Count 8.81 10^3/uL (3.29-11.43)
[2025-02-18] MEDS: heparin 5,000 unit/mL INJ 1 mL 5000 UNIT SUBCUT ×2 (04:33→16:52)
[2025-02-18 05:08] LABS: Alanine Aminotransferase < 5 U/L (0-33); Albumin Level 3.7 g/dL (3.5-5.2); Alkaline Phosphatase 124 U/L (35-105); Anion Gap 22.8 (5-19); Aspartate Amino Transferase 38 U/L (0-32); Blood Urea Nitrogen 13 mg/dL (8-23); Calcium 9.1 mg/dL (8.5-10.5); Carbon Dioxide 17 mmol/L (22-29); Chloride 106 mmol/L (98-107); Creatinine Clr Calc Pharmacy 70.0552; Globulin 3.7 g/dL (1.3-4.6); Glucose 158 mg/dL (65-115); Magnesium 1.8 mg/dL (1.7-2.3); Osmolality Calculated 297 mOsm/kg (285-295); Potassium 3.8 mmol/L (3.5-5.1); Sodium 142 mmol/L (136-145); Total Protein 7.4 g/dL (6.6-8.7)
[2025-02-18] MEDS: carbidopa-levodopa 25-100mg Tablet 2 EACH PO ×4 (08:27→17:04)
[2025-02-18] MEDS: cefTRIAXone 1,000 mg SDV 1000 MG IVP (10:26)
--- NOTE | 2025-02-18 10:33 | PC.NURSE ---
Test Dose of Rocephin given per Dr. Marlow orders and Elly Trejo Pharmacist instructions at 1030 see MAR, closely monitoring patient
--- NOTE | 2025-02-18 12:44 | PM.PN ---
Documented by User: Ata FernándezMANUELITO STDNT 02/18/25 13:12 Subjective Subjective: Rakel Anderson, 74F, had an acute event of anaphylaxis characterized by dyspnea and tongue swelling overnight after administration of hydralazine, vancomycin, and ceftriaxone. She was given IM epinephrine and transferred to the ICU in stable condition started on an epinephrine drip. She remains stable this morning. She remains accompanied by her , Mac, and son, Shakeel, who is a flight nurse. They note she has recovered well from her anaphylaxis episode last night and report some improvements in mental status. Patient can communicate clearly but has some trouble being oriented to time, month, or year. She is oriented to self and place. She does report improvement in itching with the Nystatin powder under her breasts and groin. Further history of complete knee replacement reveals operation was performed [address] Ferguson at [facility] in [place], [place]. She had fallen on the knee many times and ambulated without her walker frequently. The wound was noted to have reopened during her falls and directly touched the ground. Her family has requested assistance arranging a direct power of floor covering installer for her future care. She requests no limitation on interventions for her during this visit. Vitals/I&O/Wt Last Vital Signs Temp 98.3 F 02/18/25 08:30 Pulse 104 H 02/18/25 12:30 Resp 32 H 02/18/25 12:30 BP 116/62 02/18/25 12:30 Pulse Ox 98 02/18/25 12:30 O2 Del Method Nasal Cannula 02/18/25 10:39 O2 Flow Rate 4 02/18/25 10:39 02/17/25 02/18/25 02/18/25 22:59 06:59 14:59 Intake Total 62.120 / 542.120 600 / 600 Output Total 400 / 550 Balance 62.120 / 392.120 -400 / -7.880 600 / 600 Weight last 48 hrs Weight 101.151 kg Weight 99.382 kg Weight 100.244 kg Physical Exam Narrative: General: alert, well-nourished female lying in bed with unintentional arm movements Resp: All lung lobes clear bilaterally. Cardio: S1, S2 heard. Regular rate and rhythm. No murmurs, rubs, or gallops. Extremities: RLE has mild swelling, erythema, and warmth noted around the knee joint compared to LLE. Const: ORIENTATION/CONSCIOUSNESS: Yes oriented to person and Yes oriented to place; not oriented to time (not oriented to time, day, month, or year) Neuro: SENSORIUM/ORIENTATION: Yes oriented to person, Yes oriented to place and No oriented to time (not oriented to time, day, month, or year) Data 02/18/25 03:37 02/18/25 04:41 Micro: Microbiology 02/16/25 00:27 Blood Culture - Preliminary Blood NEGATIVE TO DATE 02/16/25 00:20 Blood Culture - Preliminary Blood NEGATIVE TO DATE A&P Assessment and plan 1. Altered mental status: 2. Delirium due to general medical condition: 3. Acute metabolic encephalopathy: Plan: 1. Altered mental status: - CT abdomen does not show any evidence of stones or ureteral obstruction. - CTA of the knee shows evidence of a suprapatellar joint effusion 4.3cm x 3.2cm x 6.1 cm that extends inferiorly deep to patellar tendon. 2. Possible septic arthritis: - Dr. Ferguson from [facility] in [place], [place], consulted and agrees joint effusion should be aspirated and may possibly be infected. - Patient and family wish for aspiration to be performed here instead of in [place]. Orthopedics consulted to perform aspiration. 3. Anaphylatic drug reaction: Hydralazine and vancomycin discontinued. Trial protocol of ceftriaxone was performed in ICU with no reaction noted. 4. Direct Power of Fuel Efficient Automobile Designer: Case management informed of family's wishes to set up DPOA. 5. Parkinson's: Continue current medications. PDMP PDMP Reviewed: Not Reviewed Attestations Medical Necessity Statement*: joint effusion requiring aspiration, ? possible septic Coding Level of Care Code Acute Code for Chg Fwd Diagnoses Altered mental status R41.82 Delirium due to general medical condition F05 Acute metabolic encephalopathy G93.41 Documented by User: Nicole Kaye MD 02/18/25 14:18 Data 02/18/25 03:37 02/18/25 04:41 A&P Assessment and plan 1. Altered mental status: 2. Delirium due to general medical condition: 3. Acute metabolic encephalopathy: Plan: 1. Altered mental status: - CT abdomen does not show any evidence of stones or ureteral obstruction. - CTA of the knee shows evidence of a suprapatellar joint effusion 4.3cm x 3.2cm x 6.1 cm that extends inferiorly deep to patellar tendon. 2. Possible septic arthritis: - Dr. Ferguson from [facility] in [place], [place], consulted and agrees joint effusion should be aspirated and may possibly be infected. - Patient and family wish for aspiration to be performed here instead of in [place]. Orthopedics consulted to perform aspiration. 3. Anaphylatic drug reaction: Hydralazine and vancomycin discontinued. Trial protocol of ceftriaxone was performed in ICU with no reaction noted. 4. Direct Power of Fuel Efficient Automobile Designer: Case management informed of family's wishes to set up DPOA. 5. Parkinson's: Continue current medications. February 18, 2025 Patient had anaphylaxis last evening as noted above. Epinephrine infusion was discontinued overnight. Ceftriaxone was reintroduced today after a test dose and patient tolerated well. Unlikely to be beta-lactam allergy. CT knee shows irregular suprapatellar joint effusion measures up to 4.3 x 3.2 x 6.1 cm. apparent associated synovial thickening and nodularity. Synovium demonstrates heterogeneous enhancement. Mild overlying skin thickening and subcutaneous edema. Plan for orthopedic assessment today and synovial fluid aspirate due to concern for PJI. Urine culture pending. WBCs improving today, leukocytosis resolved from 14,000-8000 today. She is alert, awake, oriented x 2. Discontinue hydrocortisone as started yesterday for anaphylaxis. DC Benadryl. If blood pressure allows will add low-dose beta-blockers given tachycardia. from 2022, lexiscan shows no RWMA, EF 77% PDMP PDMP Reviewed: Not Reviewed Attestations Medical Necessity Statement*: joint effusion likely requiring aspiration, restart ceftriaxone with close monitoring Coding Level of Care Code Acute Code for Chg Fwd Diagnoses Altered mental status R41.82 Delirium due to general medical condition F05 Acute metabolic encephalopathy G93.41
--- NOTE | 2025-02-18 13:17 | PC.NURSE ---
Emergency medication pulled from [facility] during test dose of rocephin, medications not used, and returned to [facility].
--- NOTE | 2025-02-18 17:08 | PM.CONSULT ---
Providers/Reason For Consult Consulting Physician/Specialty*: Reza Polo MD/orthopedic surgery Reason for Consult*: Recent total knee arthroplasty on the right. Patient now with sepsis Attending Physician: Nicole Kaye MD Primary Care Provider: Thanh Washington DO History of Present Illness History of Present Illness Rakel Anderson is a 74 year old female who approximately 4 weeks ago had a right total knee arthroplasty done in [facility]. Dr. Ferguson was the surgeon. Within the first week she fell and split her wound open again. She was taken back to the operating room and per her had a polyethylene exchange as well as the knee washed out thoroughly. The knee was then closed again. Patient was placed on some oral antibiotics postoperatively for 10 days this was completed pleated already. She just recently saw Dr. Ferguson last Monday who is quite pleased with how well her wound had healed and how well she is doing with her knee. That following Monday she became lethargic and had mental changes and family brought her to the emergency room here in [place]. Patient was worked up for a cerebral accident which was found to be negative. She is found to have an elevated white blood cell count as well as elevated CRP. Urinalysis demonstrated protein within the urine as well as small amount of bacteria, increased leukocyte esterase, increased white blood cells. Toxicology screen indicated positive for opioids, benzodiazepines, and THC. Subsequent workup of the right knee for possible septic joint included x-rays as well as a CT scan. Negative findings on x-ray other than total knee arthroplasty well-seated. CT scan demonstrated a small to moderate effusion in the posterior patella tendon which is consistent with recent total knee arthroplasty. No other abnormalities of the bone structures and well-seated prosthesis identified. Medications/Allergies Home Medications ?Medication ?Instructions ?Recorded ?Confirmed ?Last Taken ?Type clonazepam 0.5 mg tablet 0.5 mg PO BEDTIME 08/13/19 02/17/25 02/16/25 History hydrocodone 5 mg-acetaminophen 325 1 tab PO BID PRN Pain 08/13/19 02/17/25 Unknown History mg tablet omeprazole 40 mg capsule,delayed 40 mg PO DAILY 08/13/19 02/17/25 02/16/25 History release rasagiline 1 mg tablet (Azilect) 1 mg PO DAILY 08/13/19 02/17/25 02/16/25 History fluoxetine 40 mg capsule 40 mg PO DAILY 09/28/21 02/17/25 02/16/25 History carbidopa ER 50 mg-levodopa 200 mg 1 tab PO .HS 06/15/22 02/17/25 02/16/25 History tablet,extended release gabapentin 600 mg tablet 600 mg PO TID 06/15/22 02/17/25 02/16/25 History lactobacillus combination no.9 4 4,000 mmu cells PO DAILY 06/15/22 02/17/25 02/16/25 History billion cell capsule (Adult 50 Plus Probiotic) prednisone 10 mg tablet See Rx Instructions PO .COMPLEX 01/10/24 02/17/25 Unknown Rx PRN joint pain #30 tabs carbidopa 25 mg-levodopa 100 mg See Rx Instructions .Route .COMPLEX 02/17/25 02/17/25 02/16/25 History tablet ropinirole 3 mg tablet 3 mg PO BID 02/17/25 02/17/25 02/16/25 History tizanidine 2 mg tablet 2 mg PO BEDTIME PRN Sleep 02/17/25 02/17/25 Unknown History Allergies Allergy/AdvReac Type Severity Reaction Status Date / Time hydralazine Allergy anaphylaxis Verified 02/17/25 18:20 vancomycin Allergy anaphylaxis Verified 02/17/25 18:20 methotrexate AdvReac Severe diarrhea Verified 11/13/23 10:50 Sulfa (Sulfonamide AdvReac Mild nausea Verified 11/13/23 10:50 Antibiotics) Current Medications Generic Name Dose Route Start Last Admin Trade Name Freq PRN Reason Stop Dose Admin Carbidopa/Levodopa 1 each 02/17/25 21:00 02/17/25 20:32 Carbidopa-Levodopa Er 50-200mg Tablet PO 1 each BEDTIME KURT Administration Carbidopa/Levodopa 2 each 02/17/25 18:00 02/18/25 17:04 Carbidopa-Levodopa 25-100mg Tablet PO 2 each 0800,1200,1400,1800 KURT Administration Ceftriaxone Sodium 1,000 mg 02/18/25 11:00 02/18/25 10:26 Ceftriaxone 1,000 Mg Sdv IVP 1,000 mg Q24H KURT Administration Clonazepam 0.5 mg 02/17/25 21:00 02/17/25 21:11 Clonazepam 0.5 Mg Tablet PO 0.5 mg BEDTIME KURT Administration Docusate Sodium 100 mg 02/17/25 05:00 02/18/25 17:04 Docusate Sodium 100 Mg Capsule PO 100 mg BID KURT Administration Fluconazole 100 mg 02/18/25 05:00 02/18/25 04:35 Fluconazole 100 Mg Tablet PO 100 mg DAILY KURT Administration Fluoxetine HCl 40 mg 02/18/25 05:00 02/18/25 04:35 Fluoxetine 20 Mg Capsule PO 40 mg DAILY KURT Administration Heparin Sodium (Porcine) 5,000 unit 02/17/25 04:00 02/18/25 16:52 Heparin 5,000 Unit/Ml Inj 1 Ml SUBCUT 5,000 unit Q12H KURT Administration Lanolin 1 applic 02/17/25 03:57 02/17/25 04:44 Lanolin Oint 7 Gm TOPICAL 1 applic PRN PRN Administration DRYNESS Nystatin 1 applic 02/17/25 12:58 02/18/25 17:04 Nystatin Powder 15 Gm Btl TOPICAL 1 applic BID KURT Administration Pantoprazole Sodium 40 mg 02/17/25 05:00 02/18/25 04:[address] 40 Mg Tablet PO 40 mg DAILY KURT Administration Senna 17.2 mg 02/17/25 21:00 02/17/25 20:32 Sennosides 8.6 Mg Tablet PO 17.2 mg BEDTIME KURT Administration PFSH Acute PFSH: Medical History (Updated 02/18/25 @ 14:18 by Nicole Kaye MD) Piriformis syndrome of left side Osteoarthritis, generalized Seronegative rheumatoid arthritis of both hands Mixed stress and urge urinary incontinence History of calcium pyrophosphate deposition disease (CPPD) Inflammatory arthritis High risk medication use Immunization counseling Osteoarthritis Recurrent UTI Surgical History (Updated 02/18/25 @ 17:17 by Reza Polo MD) History of History of hysterectomy H/O arthroscopy of left knee History of esophageal surgery History of cholecystectomy History of tubal ligation Hx of repair of left rotator cuff History of left knee replacement Family History Father , at age 69 Cancer pancreatic cancer Emphysema lung Mother , at age 57 Enlarged heart Other Diabetes Family history of premature coronary artery disease Heart disease Hypertension Systemic lupus erythematosus (SLE) in adult Denies family history of Chronic kidney disease (CKD) Social History Smoking and tobacco/nicotine status: never used tobacco/nicotine Alcohol intake: never Substance/Drug Use: unknown Adopted: No Caregiver/support person: No Lives independently: No Household members: spouse Marital status: Current occupational status: retired Current gender identity: Female Vitals/I&O/Wt Last Vital Signs Temp 98.3 F 02/18/25 08:30 Pulse 110 H 02/18/25 16:15 Resp 28 H 02/18/25 15:45 BP 127/52 02/18/25 13:15 Pulse Ox 95 02/18/25 16:15 O2 Del Method Room Air 02/18/25 10:39 O2 Flow Rate 4 02/17/25 20:00 02/18/25 02/18/25 02/18/25 06:59 14:59 22:59 Intake Total 600 / 600 Output Total 400 / 550 Balance -400 / -7.880 600 / 600 Weight last 48 hrs Weight 223 lb Weight 219 lb 1.6 oz Weight 221 lb Physical Exam Narrative: On examination of her right knee surgical wound is well-healed. There is no sign of breakdown or eschar present. There is no drainage. There is minimal erythema along the surgical incision line. There is minimal warmth or swelling about the knee either. It is stiff and sore as to be expected with attempts at range of motion. No other gross abnormalities are noted at this time. Data 02/18/25 03:37 02/18/25 04:41 Micro: Microbiology 02/17/25 01:58 Urine Culture - Preliminary Urine,Clean Catch 02/16/25 00:27 Blood Culture - Preliminary Blood NEGATIVE TO DATE 02/16/25 00:20 Blood Culture - Preliminary Blood NEGATIVE TO DATE A&P Assessment and plan 1. Status post total right knee replacement: Patient is status post right total knee arthroplasty at an outside facility. She is been treated in the last few weeks for an open wound, dehiscence of her surgical wound. This is treated appropriately with a polyethylene swap of the tibial spacer as well as a washout. Wound has gone on to heal quite well. There is no signs of sepsis in this knee. There is no effusion, there is no erythema, there is minimal swelling. This knee appears to be a postoperative total knee arthroplasty without any other complications going on at this time. Elevated CRP as well as white blood cell count could be attributed to the recent surgery. However urinary tract infection could be the possible cause of this also. Plan: Plan at this time is to go ahead and treat her sepsis as per the medical team. Once the patient is a awake and alert and over the crisis that she is having at this time she should be referred back to her orthopedist for further evaluation of her knee if anything continues to persist or change in this scenario. There is no need for aspiration or surgical exploration of her right knee at this time. At this time I would encourage physical therapy to work with her to try and get knee motion going as well as up and ambulatory soon as possible. PDMP PDMP Reviewed: Not Reviewed Consult Attestations Medical Necessity Statement: Patient in need of further medical support Coding Level of Care Code Acute Code for Chg Fwd Diagnoses Status post total right knee replacement Z96.651 Laterality: right
--- NOTE | 2025-02-18 17:59 | PC.NURSE ---
Report called to artem GAMEZ, patient taken to [facility]
[2025-02-18] MEDS: carbidopa-levodopa ER 50-200mg Tablet 1 EACH PO (20:54)
[2025-02-19 04:00] VITALS: BP 179/82; PULSE 92; RESP 17; TEMP 37; O2SAT 96
[2025-02-19] MEDS: heparin 5,000 unit/mL INJ 1 mL 5000 UNIT SUBCUT (04:12)
[2025-02-19 04:20] VITALS: BP 154/76
[2025-02-19 05:13] LABS: Hematocrit 36.8 % (36-47); Hemoglobin 11.90 g/dL (11.27-16.99); Mean Corpuscular HGB Conc 32.3 g/dL (30-55); Mean Corpuscular Hemoglobin 33.3 pg (27-33); Mean Corpuscular Volume 103.1 fl (85-98); Nucleated Red Blood Cells % 0 %; Platelet Count 310 10^3/cmm (157-399); Red Blood Count 3.57 10^6/uL (3.85-5.65); White Blood Count 12.91 10^3/uL (3.29-11.43)
[2025-02-19 05:26] VITALS: PULSE 87
[2025-02-19 05:34] LABS: Alanine Aminotransferase < 5 U/L (0-33); Albumin Level 3.8 g/dL (3.5-5.2); Alkaline Phosphatase 116 U/L (35-105); Anion Gap 17.2 (5-19); Aspartate Amino Transferase 27 U/L (0-32); Blood Urea Nitrogen 17 mg/dL (8-23); Calcium 9.1 mg/dL (8.5-10.5); Carbon Dioxide 21 mmol/L (22-29); Chloride 109 mmol/L (98-107); Creatinine Clr Calc Pharmacy 70.7653; Globulin 3.2 g/dL (1.3-4.6); Glucose 139 mg/dL (65-115); Osmolality Calculated 302 mOsm/kg (285-295); Potassium 3.2 mmol/L (3.5-5.1); Sodium 144 mmol/L (136-145); Total Protein 7.0 g/dL (6.6-8.7)
[2025-02-19 07:34] VITALS: BP 169/84; PULSE 83; RESP 16; TEMP 36.4; O2SAT 96
[2025-02-19] MEDS: carbidopa-levodopa 25-100mg Tablet 2 EACH PO ×2 (09:08→13:13)
--- NOTE | 2025-02-19 10:03 | PC.SOCIAL ---
*IMM* Patient received a copy of the important message from [employer], initialed, dated and placed in chart.
[2025-02-19] MEDS: cefTRIAXone 1,000 mg SDV 1000 MG IVP (11:01)
[2025-02-19 11:27] VITALS: BP 136/58; PULSE 84; RESP 18; TEMP 37.1; O2SAT 98
--- NOTE | 2025-02-19 11:39 | PM.DCS ---
Documented by User: MANUELITO Jamil STDNT 02/19/25 14:22 Discharge Providers Date of Admission: 02/17/25 03:03 Date of Discharge: February 19, 2025 Attending Provider at Admission: Floresita Payan MD Attending Provider at Discharge: Nicole Kaye MD Consults: Reza Polo MD/orthopedic surgery Primary Care Provider: Thanh Washington DO Diagnoses at Discharge Discharge Diagnosis 1. Status post total right knee replacement: Details from hospital stay: Follow up with Dr. Ferguson in [place], [place], if symptoms of infected knee joint (redness, warmth, swelling) arise after completing 5 day antibiotic course. 2. UTI (urinary tract infection): 3. Altered mental status: 4. Acute metabolic encephalopathy: 5. Delirium due to general medical condition: 6. Parkinson disease with dyskinesia: Reason for Visit Reason for Visit: Confusion\AMS Brief History: See hospital course. Hospital Course Hospital Course Rakel Anderson, 74F, with history of Parkinson's disease, right knee surgery, and recurrent UTI presented 02/16/25 to the ED with acute mental status change. Patient was noted to be restless, increasingly argumentative, and unable to recall recent events. ED workup provided evidence to suggest possible UTI, dehydration, medication side effects, and possibly septic knee joint effusion. Blood and urine cultures were drawn; IV fluids and Zosyn were started, and patient was admitted. Diflucan was also started for excoriations in perineal area suspicious of candidiasis. Patient responded to IV fluid overnight. Her mental status was noted as improving with IV fluids and meals by her and son who were present. On 02/17/25, a code was activated for suspected anaphylaxis after administration of IV contrast, vancomycin, hydralazine, and ceftriaxone. Patient had a diffuse rash, swollen tongue, and acute dyspnea. She received IV methylprednisolone, IV Benadryl, and IM epinephrine. She was moved to the ICU and started on IV epinephrine. After stabilization, ceftriaxone was resumed with close monitoring, and patient was assessed as stable to return to medical surgical floor. Patient recovered without further incident with mental status subjectively returning to almost baseline according to . Urine cultures did not grow sufficient colony units for UTI classification. Orthopedic surgery was consulted on possible infected knee joint effusion aspiration; no indication was found to aspirate. Patient was given instructions for discharge to continue on 5 days of cefdinir, a follow up with her orthopedic surgeon in [place], [place], amlodipine and blood pressure checks for chronic HTN, and a reduced gabapentin dose for possible pharmacologic delirium. February 19, 2025 Attending addendum. 74-year-old lady with a history of CPPD, inflammatory arthritis chronically on prednisone 10 mg daily, history of Parkinson's disease with movement disorder, presented to the hospital with altered mental status. Overall clinical impression was that of metabolic encephalopathy, likely related to an underlying infection given she had leukocytosis and elevated inflammatory markers upon admission. Labs were additionally notable for rhabdomyolysis. UA was with 6-10 epithelial cells, positive calcium oxalate crystals, positive RBCs and positive WBCs. Consideration for UTI to be the underlying cause. Urine culture was taken however less than 5000 CFU ultimately noted. Patient had some dysuria therefore possibility of cystitis not excluded. CT KUB was negative for any hydronephrosis or obstructive process. Blood cultures remain negative during admission. Chest x-ray without any consolidation. Recent history notable for right TKA 4 weeks ago at [place] with Dr. Ferguson, which was complicated by a fall on the day of discharge warranting return to the operating room for wound closure and cleanout. Right knee was slightly more swollen compared to the left side on admission, ; with the recent history concern for potential PJI. Orthopedic service was consulted, currently no gross signs of septic arthritis therefore synovial aspiration was not recommended. Hospital course notable for anaphylaxis suspected related to hydralazine versus IV vancomycin though both agents were given at the same time therefore difficult to say which was the culprit. She received epinephrine, hydrocortisone 100 mg every 6 hours and Benadryl which resolved the anaphylaxis. Following high-dose steroid use, her right knee did appear much less swollen; suprapatellar joint effusion suspected to be related to inflammation versus postop state. Gabapentin dose was reduced to 300 mg 3 times daily. Amlodipine 2.5 mg daily added at discharge for HTN. oral abx transitioned to cefdinir 300mg BID for 5 days to complete course for possible UTI. This morning patient is alert awake oriented, back to baseline mentation. Recommend to follow-up with primary care physician and Dr. Ferguson for follow-up. Physical Exam Const: COMMON NORMALS: no acute distress, patient oriented x3, healthy appearing and alert Resp: COMMON NORMALS: normal respiratory effort and clear to auscultation bilaterally AUSCULTATION: clear to auscultation bilaterally Cardio: COMMON NORMALS: regular rate, regular rhythm, S1 normal heart sound present, S2 normal heart sound present and No murmurs present (Cardio) RATE: regular rate RHYTHM: regular rhythm HEART SOUNDS: S1 normal heart sound present and S2 normal heart sound present Neuro: COMMON NORMALS: patient oriented x3 SENSORIUM/ORIENTATION: Yes alert Psych: COMMON NORMALS: Normal thought process present and speech normal APPEARANCE: Yes grossly normal ATTITUDE: Yes calm ACTIVITY/MOTOR BEHAVIOR: Yes appropriate eye contact SPEECH: Yes normal speech THOUGHT PROCESS: Normal thought process present ATTENTION/CONCENTRATION: Yes attention grossly intact MEMORY/COGNITION: Yes memory grossly intact Discharge Data Studies Completed and Pending Completed Studies During Hospitalization Category Date Time Status CT head wo con* [id number] Stat Cat Scan 02/16/25 23:[address] kidney stone [id number] Routine Cat Scan 02/17/25 16:[address] knee RT w con [id number] Routine Cat Scan 02/17/25 16:03 Completed XR chest 1V portable [id number] Stat Exams 02/16/25 23:41 Completed XR knee RT 3V* [id number] Stat Exams 02/16/25 23:48 Completed Pending at discharge Category Date Time Status Blood Culture Stat Lab 02/16/25 00:27 Results Radiology Impressions Chest X-Ray 02/16/25 23:41 IMPRESSION: No definite acute infiltrate or effusion. Head CT 02/16/25 23:41 IMPRESSION: No acute intracranial abnormality. Knee X-Ray 02/16/25 23:48 IMPRESSION: Query mild prepatellar soft tissue swelling, could be related to bursitis or trauma with other etiologies not excluded. Abdomen/Pelvis CT 02/17/25 16:00 IMPRESSION: No acute findings. Incidental and chronic findings as above. Knee CT 02/17/25 16:03 IMPRESSION: 1. Status post prior right total knee arthroplasty. Prosthesis appears intact. No evidence for loosening of the prosthesis. No associated fracture. 2. Large irregular suprapatellar joint effusion is present. Joint fluid extends inferiorly along the anterior joint line and deep to the patellar tendon. Suprapatellar joint effusion measures up to 4.3 x 3.2 x 6.1 cm. There is apparent associated synovial thickening and nodularity. Synovium demonstrates heterogeneous enhancement. Mild overlying skin thickening and subcutaneous edema. Joint aspiration is recommended if not already performed to evaluate for infectious process. 3. Fatty replacement of the visualized portion of the long head of the biceps femoris muscle and semimembranosus muscle. Laboratory Results WBC 12.91 10^3/uL (3.29-11.43) H 02/19/25 04:55 RBC 3.57 10^6/uL (3.85-5.65) L 02/19/25 04:55 Hgb 11.90 g/dL (11.27-16.99) 02/19/25 04:55 Hct 36.8 % (36-47) 02/19/25 04:55 MCV 103.1 fl (85-98) H 02/19/25 04:55 MCH 33.3 pg (27-33) H 02/19/25 04:55 MCHC 32.3 g/dL (30-55) 02/19/25 04:55 RDW 14.4 % (12.1-15.1) 02/19/25 04:55 Plt Count 310 10^3/cmm (157-399) 02/19/25 04:55 MPV 11.3 fL (7.4-10.4) H 02/19/25 04:55 Neut % (Auto) 75.3 % 02/19/25 04:55 Lymph % (Auto) 15.6 % 02/19/25 04:55 Gladwin % (Auto) 8.5 % 02/19/25 04:55 Eos % (Auto) 0.0 % 02/19/25 04:55 Baso % (Auto) 0.1 % 02/19/25 04:55 Neut # (Auto) 9.72 10^3/uL (1.8-7.7) H 02/19/25 04:55 Lymph # (Auto) 2.0 10^3/uL (0.8-4.8) 02/19/25 04:55 Gladwin # (Auto) 1.1 10^3/uL (0.2-0.9) H 02/19/25 04:55 Eos # (Auto) 0.0 10^3/uL (0.0-0.8) 02/19/25 04:55 Baso # (Auto) 0.0 10^3/uL (0.0-0.1) 02/19/25 04:55 Nucleated RBC % (auto) 0 % 02/19/25 04:55 Nucleated RBCs # 0.0 /100WBC 02/19/25 04:55 Specimen Type Arterial 02/17/25 18:35 Sample Site Radial, left 02/17/25 18:35 ABG pH 7.46 (7.35-7.45) H 02/17/25 18:35 ABG pCO2 26.0 mmHg (35-45) L 02/17/25 18:35 ABG pO2 90.6 mmHg (80.0-100.0) 02/17/25 18:35 ABG PO2/FiO2 Ratio 251 02/17/25 18:35 ABG HCO3 18.5 mmol/L (22-26) L 02/17/25 18:35 ABG Base Excess -3.7 mmol/L (-2.0-2.0) L 02/17/25 18:35 Jovany Test Pos 02/17/25 18:35 Hematocrit 41.8 % (37-47) 02/17/25 18:35 Hgb O2 Saturation 97.2 % (95-100) 02/16/25 00:15 Carboxyhemoglobin 1.1 %THgb (0.4-20.1) 02/16/25 00:15 Methemoglobin 0.2 % (0.4-1.5) L 02/16/25 00:15 Total Hemoglobin 12.3 g/dL (12-16) 02/16/25 00:15 O2 Delivery Device Nc 02/17/25 18:35 O2 Liters/Min 4.0 % 02/17/25 18:35 FiO2 36.0 % 02/17/25 18:35 Information Systems Coordinator ID Cak 02/17/25 18:35 Sodium 144 mmol/L (136-145) 02/19/25 04:55 Potassium 3.2 mmol/L (3.5-5.1) L 02/19/25 04:55 Chloride 109 mmol/L (98-107) H 02/19/25 04:55 Carbon Dioxide 21 mmol/L (22-29) L 02/19/25 04:55 Anion Gap 17.2 (5-19) 02/19/25 04:55 BUN 17 mg/dL (8-23) 02/19/25 04:55 Creatinine 0.5 mg/dL (0.5-0.9) 02/19/25 04:55 GFR Calculation Not Reportable 02/19/25 04:55 Glucose 139 mg/dL (65-115) H 02/19/25 04:55 Calculated Osmolality 302 mOsm/kg (285-295) H 02/19/25 04:55 Lactic Acid 2.0 mmol/L (0.5-2.2) 02/16/25 23:40 Calcium 9.1 mg/dL (8.5-10.5) 02/19/25 04:55 Phosphorus 3.3 mg/dL (2.5-4.5) 02/18/25 04:41 Magnesium 1.8 mg/dL (1.7-2.3) 02/18/25 04:41 Total Bilirubin 0.2 mg/dL (0.15-1.2) 02/19/25 04:55 AST 27 U/L (0-32) 02/19/25 04:55 ALT < 5 U/L (0-33) 02/19/25 04:55 Alkaline Phosphatase 116 U/L (35-105) H 02/19/25 04:55 Creatine Kinase 1106 U/L (26-192) H* 02/16/25 23:40 C-Reactive Protein 65.8 mg/L (0.0-4.9) H 02/16/25 23:40 Total Protein 7.0 g/dL (6.6-8.7) 02/19/25 04:55 Albumin 3.8 g/dL (3.5-5.2) 02/19/25 04:55 Globulin 3.2 g/dL (1.3-4.6) 02/19/25 04:55 Procalcitonin 0.17 ng/mL (0-0.5) 02/16/25 23:40 Procalcitonin 0.17 ng/mL (0-0.5) 02/16/25 23:40 Urine Color Yellow (Yellow) 02/17/25 01:58 Urine Appearance Clear (CLEAR) 02/17/25 01:58 Urine pH 5 (5-7) 02/17/25 01:58 Ur Specific [place] 1.025 (1.005-1.030) 02/17/25 01:58 Urine Protein 1+ (Negative) H 02/17/25 01:58 Urine Glucose (UA) Norm (Normal) 02/17/25 01:58 Urine Ketones 2+ (Negative) H 02/17/25 01:58 Urine Blood 2+ (Negative) H 02/17/25 01:58 Urine Nitrate Negative (Negative) 02/17/25 01:58 Urine Bilirubin Neg (Negative) 02/17/25 01:58 Urine Urobilinogen 1 mg/dL (Negative) H 02/17/25 01:58 Ur Leukocyte Esterase 1+ (Negative) H 02/17/25 01:58 Urine RBC 15-25 /hpf (0-2) H 02/17/25 01:58 Urine WBC 11-20 /hpf (0-5) H 02/17/25 01:58 Ur Squamous Epith Cells 6-10 /hpf (0-5) 02/17/25 01:58 Calcium Oxalate Crystal 5-10 /hpf H 02/17/25 01:58 Amorphous Sediment Not Reportable 02/17/25 01:58 Urine Bacteria 1+ /hpf (NONE) H 02/17/25 01:58 Hyaline Casts 15-25 /lpf H 02/17/25 01:58 Fine Granular Casts 0-4 /lpf H 02/17/25 01:58 Urine Mucus 4+ /hpf 02/17/25 01:58 Urine Opiates Screen Positive ng/mL (Negative) H 02/17/25 01:58 Ur Barbiturates Screen Negative ng/mL (Negative) 02/17/25 01:58 Ur Phencyclidine Scrn Negative ng/mL (Negative) 02/17/25 01:58 Ur Amphetamines Screen Negative ng/mL (Negative) 02/17/25 01:58 U Benzodiazepines Scrn Positive ng/mL (Negative) H 02/17/25 01:58 Urine Cocaine Screen Negative ng/mL (Negative) 02/17/25 01:58 U Marijuana (THC) Screen Positive ng/mL (Negative) H 02/17/25 01:58 Ethyl Alcohol < 10 mg/dL (0-10) 02/16/25 23:40 Vitals Last Vital Signs Temp 98.8 F 02/19/25 11:27 Pulse 84 02/19/25 11:27 Resp 18 02/19/25 11:27 BP 136/58 02/19/25 11:27 Pulse Ox 98 02/19/25 11:27 O2 Del Method Room Air 02/19/25 11:27 O2 Flow Rate 4 02/17/25 20:00 Discharge Plan Discharge Patient Disposition: Home Health Service Condition: Stable Prescriptions: New fluconazole 100 mg Tablet 100 mg PO DAILY 5 Days Qty: 5 0RF cefdinir 300 mg capsule 300 mg PO BID 5 Days Qty: 10 0RF amlodipine 2.5 mg tablet 2.5 mg PO DAILY 30 Days Qty: 30 0RF Continued rasagiline [Azilect] 1 mg tablet 1 mg PO DAILY omeprazole 40 mg capsule,delayed release(DR/EC) 40 mg PO DAILY hydrocodone-acetaminophen 5-325 mg tablet 1 tab PO BID PRN (Reason: Pain) clonazepam 0.5 mg tablet 0.5 mg PO BEDTIME fluoxetine 40 mg capsule 40 mg PO DAILY carbidopa-levodopa 50-200 mg tablet extended release 1 tab PO .HS Adult 50 Plus Probiotic 4 billion cell capsule 4,000 mmu cells PO DAILY Rx Instructions: administer with a meal prednisone 10 mg tablet See Rx Instructions PO .COMPLEX PRN (Reason: joint pain) Qty: 30 1RF Rx Instructions: Take 1 tablet by mouth daily for 5 days as needed for joint pain flare. tizanidine 2 mg tablet 2 mg PO BEDTIME PRN (Reason: Sleep) ropinirole 3 mg tablet 3 mg PO BID carbidopa-levodopa 25-100 mg tablet See Rx Instructions .ROUTE .COMPLEX Rx Instructions: TAKE 2 TABLETS BY MOUTH 4 TIMES DAILY AT 8AM, NOON, 2PM, AND 6PM. Changed gabapentin 600 mg tablet 300 mg PO TID 30 Days Qty: 45 0RF Discharge Order = DC NOW: Discharge Order (Routine); Ordered 02/19/25 Ordered By: Nicole Kaye Referrals: [facility] [Outside] Thanh Washington DO [Primary Care Provider, Family Practice] - 02/24/25 2:40 pm Osman Ferguson MD [Physician, Orthopedics] - 2 weeks Referral Note: We have notified your physician's clinic of the need for a follow-up appointment to be scheduled. If you have not heard from them within the next 2 business days, please call them directly. Patient Instructions: Fluconazole (By mouth), Amlodipine (By mouth), Cefdinir (By mouth), Urinary Tract Infection in Women (GEN), Altered Mental Status (ED), Opioid Safety, Patient Portal & Henrique Instructions Coding Level of Care Code Acute Code for Chg Fwd Diagnoses Status post total right knee replacement Z96.651 Laterality: right UTI (urinary tract infection) N39.0 Altered mental status R41.82 Acute metabolic encephalopathy G93.41 Delirium due to general medical condition F05 Parkinson disease with dyskinesia G20.B1 Documented by User: Nicole Kaye MD 02/19/25 15:41 Diagnoses at Discharge Discharge Diagnosis 1. Status post total right knee replacement: 2. UTI (urinary tract infection): 3. Altered mental status: 4. Acute metabolic encephalopathy: 5. Delirium due to general medical condition: 6. Parkinson disease with dyskinesia: Reason for Visit Reason for Visit: Confusion\AMS Hospital Course Hospital Course Rakel Anderson, 74F, with history of Parkinson's disease, right knee surgery, and recurrent UTI presented 02/16/25 to the ED with acute mental status change. Patient was noted to be restless, increasingly argumentative, and unable to recall recent events. ED workup provided evidence to suggest possible UTI, dehydration, medication side effects, and possibly septic knee joint effusion. Blood and urine cultures were drawn; IV fluids and Zosyn were started, and patient was admitted. Diflucan was also started for excoriations in perineal area suspicious of candidiasis. Patient responded to IV fluid overnight. Her mental status was noted as improving with IV fluids and meals by her and son who were present. On 02/17/25, a code was activated for suspected anaphylaxis after administration of IV contrast, vancomycin, hydralazine, and ceftriaxone. Patient had a diffuse rash, swollen tongue, and acute dyspnea. She received IV methylprednisolone, IV Benadryl, and IM epinephrine. She was moved to the ICU and started on IV epinephrine. After stabilization, ceftriaxone was resumed with close monitoring, and patient was assessed as stable to return to medical surgical floor. Patient recovered without further incident with mental status subjectively returning to almost baseline according to . Urine cultures did not grow sufficient colony units for UTI classification. Orthopedic surgery was consulted on possible infected knee joint effusion aspiration; no indication was found to aspirate. Patient was given instructions for discharge to continue on 5 days of cefdinir, a follow up with her orthopedic surgeon in [place], [place], amlodipine and blood pressure checks for chronic HTN, and a reduced gabapentin dose for possible pharmacologic delirium. February 19, 2025 Attending addendum. 74-year-old lady with a history of CPPD, inflammatory arthritis chronically on prednisone 10 mg daily, history of Parkinson's disease with movement disorder, presented to the hospital with altered mental status. Overall clinical impression was that of metabolic encephalopathy, likely related to an underlying infection given she had leukocytosis and elevated inflammatory markers upon admission. Labs were additionally notable for rhabdomyolysis. UA was with 6-10 epithelial cells, positive calcium oxalate crystals, positive RBCs and positive WBCs. Consideration for UTI to be the underlying cause. Urine culture was taken however less than 5000 CFU ultimately noted. Patient had some dysuria therefore possibility of cystitis not excluded. CT KUB was negative for any hydronephrosis or obstructive process. Blood cultures remain negative during admission. Chest x-ray without any consolidation. Recent history notable for right TKA 4 weeks ago at [place] with Dr. Ferguson, which was complicated by a fall on the day of discharge warranting return to the operating room for wound closure and cleanout. Right knee was slightly more swollen compared to the left side on admission, ; with the recent history concern for potential PJI. Orthopedic service was consulted, currently no gross signs of septic arthritis therefore synovial aspiration was not recommended. Hospital course notable for anaphylaxis suspected related to hydralazine versus IV vancomycin though both agents were given at the same time therefore difficult to say which was the culprit. She received epinephrine, hydrocortisone 100 mg every 6 hours and Benadryl which resolved the anaphylaxis. Following high-dose steroid use, her right knee did appear much less swollen; suprapatellar joint effusion suspected to be related to inflammation versus postop state. Gabapentin dose was reduced to 300 mg 3 times daily. Amlodipine 2.5 mg daily added at discharge for HTN. oral abx transitioned to cefdinir 300mg BID for 5 days to complete course for possible UTI. This morning patient is alert awake oriented, back to baseline mentation. Recommend to follow-up with primary care physician and Dr. Ferguson for follow-up. Discharge Plan Discharge Patient Disposition: Home Health Service Condition: Stable Prescriptions: New fluconazole 100 mg Tablet 100 mg PO DAILY 5 Days Qty: 5 0RF cefdinir 300 mg capsule 300 mg PO BID 5 Days Qty: 10 0RF amlodipine 2.5 mg tablet 2.5 mg PO DAILY 30 Days Qty: 30 0RF Continued rasagiline [Azilect] 1 mg tablet 1 mg PO DAILY omeprazole 40 mg capsule,delayed release(DR/EC) 40 mg PO DAILY hydrocodone-acetaminophen 5-325 mg tablet 1 tab PO BID PRN (Reason: Pain) clonazepam 0.5 mg tablet 0.5 mg PO BEDTIME fluoxetine 40 mg capsule 40 mg PO DAILY carbidopa-levodopa 50-200 mg tablet extended release 1 tab PO .HS Adult 50 Plus Probiotic 4 billion cell capsule 4,000 mmu cells PO DAILY Rx Instructions: administer with a meal prednisone 10 mg tablet See Rx Instructions PO .COMPLEX PRN (Reason: joint pain) Qty: 30 1RF Rx Instructions: Take 1 tablet by mouth daily for 5 days as needed for joint pain flare. tizanidine 2 mg tablet 2 mg PO BEDTIME PRN (Reason: Sleep) ropinirole 3 mg tablet 3 mg PO BID carbidopa-levodopa 25-100 mg tablet See Rx Instructions .ROUTE .COMPLEX Rx Instructions: TAKE 2 TABLETS BY MOUTH 4 TIMES DAILY AT 8AM, NOON, 2PM, AND 6PM. Changed gabapentin 600 mg tablet 300 mg PO TID 30 Days Qty: 45 0RF Discharge Order = DC NOW: Discharge Order (Routine); Ordered 02/19/25 Ordered By: Nicole Kaye Referrals: [facility] [Outside] Thanh Washington DO [Primary Care Provider, Family Practice] - 02/24/25 2:40 pm Osman Ferguson MD [Physician, Orthopedics] - 2 weeks Referral Note: We have notified your physician's clinic of the need for a follow-up appointment to be scheduled. If you have not heard from them within the next 2 business days, please call them directly. Patient Instructions: Fluconazole (By mouth), Amlodipine (By mouth), Cefdinir (By mouth), Urinary Tract Infection in Women (GEN), Altered Mental Status (ED), Opioid Safety, Patient Portal & Henrique Instructions Discharge Attestations Time Spent in Discharge Care*: greater than 30 min Quality Metrics Clinical Quality Measures [ No reported AMI, CVA or VTE this stay] Coding Level of Care Code Acute Code for Chg Fwd Diagnoses Status post total right knee replacement Z96.651 Laterality: right UTI (urinary tract infection) N39.0 Altered mental status R41.82 Acute metabolic encephalopathy G93.41 Delirium due to general medical condition F05 Parkinson disease with dyskinesia G20.B1
[2025-02-19 12:49] VITALS: BP 136/58; PULSE 84; RESP 18; TEMP 37.1; O2SAT 98
--- NOTE | 2025-02-19 13:32 | PC.NURSE ---
Discussed all medications, follow up appointments and other instructions with patient and spouse. Medications brought to bedside by pharmacy. Both parties verbalized understanding of discharge
== END 2025-02-19 13:35 | disposition home health service (06) | DRG 689 ==
LOC: ER 02-17 03:16 → MEDSURG 02-17 03:39 → ICU 02-17 18:08 → MEDSURG 02-18 17:52
PROVIDERS: Admitting Provider Internal Medicine; Emergency Provider Emergency Medicine; PCP Electrodiagnostic Medicine; Visit Provider Student in an Organized Health Care Education/Training Program
DX: N39.0 Urinary tract infection, site not specified (principal); G93.41 Metabolic encephalopathy; F05 Delirium due to known physiological condition; T88.6XXA Anaphylactic reaction due to adverse effect of correct drug or medicament properly administered, initial encounter; M62.82 Rhabdomyolysis; B37.89 Other sites of candidiasis; E87.20 Acidosis, unspecified; Z96.651 Presence of right artificial knee joint; G20.B1 Parkinson's disease with dyskinesia, without mention of fluctuations; T50.8X5A Adverse effect of diagnostic agents, initial encounter; T36.8X5A Adverse effect of other systemic antibiotics, initial encounter; T46.5X5A Adverse effect of other antihypertensive drugs, initial encounter; T36.1X5A Adverse effect of cephalosporins and other beta-lactam antibiotics, initial encounter; R21 Rash and other nonspecific skin eruption; R06.00 Dyspnea, unspecified; M12.80 Other specific arthropathies, not elsewhere classified, unspecified site; I10 Essential (primary) hypertension; M25.461 Effusion, right knee; E86.0 Dehydration; N39.46 Mixed incontinence; M06.042 Rheumatoid arthritis without rheumatoid factor, left hand; M06.041 Rheumatoid arthritis without rheumatoid factor, right hand; G57.02 Lesion of sciatic nerve, left lower limb; Z79.51 Long term (current) use of inhaled steroids; Z79.891 Long term (current) use of opiate analgesic; Z87.440 Personal history of urinary (tract) infections
CPT/HCPCS: 36415; 36600; 70450; 71045; 73562; 73701; 74176; 80053; 80306; 80307; 81001; 82550; 82803; 82805; 83605; 83735; 84100; 84145; 85025; 86140; 87040; 87086; 93005; 96365; 96372; 96375; 99285; J0169; J0360; J0696; J1450; J1644; J1720; J2250; J2543; J2919; J3373; J7030; J7050; J9999